=== PATIENT | female | born 1960 | race American Indian/Alaskan Native ===

== ENCOUNTER 2016-11-06 11:12 | Inpatient (IN) | payer OTHER, MEDICARE ==
--- NOTE | 2016-11-06 11:38 | EDM.PDOC ---
ED HISTORY OF PRESENT ILLNESS - General Chief Complaint: Respiratory Problem Stated Complaint: SOB Time Seen by Provider: 11/06/16 11:32 Source of Information: Reports: Patient History Limitations: Reports: No limitations - History of Present Illness INITIAL COMMENTS - FREE TEXT/NARRATIVE: 56-year-old female ancestry presents to the ED with productive cough greenish sputum for about 2 days. However she's been coughing and congested for about a week. She was seen earlier in the week and identified a viral upper respiratory tract infection. Patient has known COPD. She quit smoking in 2000. She is also immunocompromised because of rheumatoid arthritis and immunosuppressant agent. Rheumatoid arthritis was diagnosed in 2000 as well. She feels feverish and she had chills last night. Decreased appetite. No nausea vomiting or diarrhea. No hemoptysis. Sore throat. Has had pneumonia on several occasions in the past. She did have a flu shot. Has increased shortness of breath on minimal exertion. Blood pressure upon arrival is 82/60. She states currently she is 120s. No recent changes in her medications. Feels weak and dizzy when she stands. Symptom Onset Date: 10/30/16 Timing/Duration: Reports: Day(s):, Getting worse, Gradual onset Severity: moderate Location, General: Reports: chest Quality: Reports: Ache, Other (Soreness of breath on minimal exertion with productive cough.) Improves with: Reports: Rest Worsens with: Reports: Movement Context, General: Denies: Activity, Exercise, Lifting, Sick contact, Trauma, Other Associated Symptoms (General): Reports: chest pain, cough (With coughing. Does feel tight in her chest at times.), cough w sputum, fever/chills, loss of appetite, malaise, shortness of breath, weakness. 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 (see below) (None.) - Related Data Allergies/ADRs: Allergies Allergy/AdvReac Type Severity Reaction Status Date / Time No Known Allergies Allergy Verified 11/06/16 11:24 Home Meds: Home Meds Acetaminophen/HYDROcodone [Palmer 325-10 MG] 1 tab PO Q6H PRN 11/06/16 [History] Albuterol [Proventil HFA] 2 inh INH Q6H PRN 11/06/16 [History] Albuterol/Ipratropium [DuoNeb 3.0-0.5 MG/3 ML] 1 inh INH Q6H 11/06/16 [History] Calcium Carb/D3/Magnesium/Zinc [Usjdcmy-Ypa-Gqnr-Vit D] 1 tab PO BID 11/06/16 [ History] Enalapril Maleate 20 mg PO DAILY 11/06/16 [History] Enalapril [Vasotec] 10 mg PO DAILY 11/06/16 [History] Fluticasone/Salmeterol [Advair Diskus 100-50] 1 inh INH BID 11/06/16 [History] Hydroxychloroquine Sulfate [Plaquenil] 200 mg PO BID 11/06/16 [History] Montelukast [Singulair] 10 mg PO BEDTIME 11/06/16 [History] Tocilizumab [Actemra] 800 mg IV ASDIRECTED 11/06/16 [History] Tolterodine [Detrol] 2 mg PO DAILY 11/06/16 [History] guaiFENesin [Mucinex] 1 tab PO BID 11/06/16 [History] Past Medical History Cardiovascular History: Reports: Hypertension Respiratory History: Reports: Asthma, COPD, Pneumonia, recurrent, Other (see below) Other Respiratory History: pulmonary fibrosis Musculoskeletal History: Reports: Arthritis, RA (Diagnosed in 2000. It primarily affects both hands wrists elbows and knees. Toes are affected on both feet.) - Past Surgical History GI Surgical History: Reports: Cholecystectomy Social & Family History - Tobacco Use Smoking Status *Q: Former Smoker Used Tobacco, but Quit: Yes Month Tobacco Last Used: 2000 - Caffeine Use Caffeine Use: Reports: None - Recreational Drug Use Recreational Drug Use: No - Living Situation & Occupation Occupation: disabled ED ROS GENERAL - Review of Systems Review Of Systems: See Below Constitutional: Reports: fever, chills, malaise, weakness, fatigue, decreased appetite. Denies: weight loss HEENT: Reports: No symptoms Respiratory: Reports: Shortness of Breath, Wheezing, Cough, Sputum. Denies: Pleuritic Chest Pain, Hemoptysis (Primarily greenish the last few days.) Cardiovascular: Reports: Chest pain (With coughing), Dyspnea on exertion, Lightheadedness. Denies: Blood pressure problem, Claudication, Orthopnea, Palpitations Endocrine: Reports: fatigue GI/Abdominal: Reports: No symptoms Musculoskeletal: Reports: neck pain, shoulder pain, joint pain (To Kendrick hands wrists elbows and knees. Has rheumatoid arthritis.), joint swelling (MCP joints of both hands both wrists and both elbows.) Skin: Reports: no symptoms Neurological: Reports: No Symptoms Psychiatric: Reports: No symptoms ED EXAM, GENERAL - Physical Exam Exam: See Below Exam Limited By: No limitations General Appearance: alert, mild distress (Working fairly hard to breathe. She does feel quite warm to palpation. O2 sats are 98% on room air.) Eye Exam: bilateral eye: normal inspection Ears: normal TMs Throat/Mouth: Normal lips (Tongue is mildly dry and coated.), Normal oropharynx , Normal voice, Other Head: atraumatic, normocephalic Neck: normal inspection, supple, non-tender, limited range of motion (Couplet is noted on lateral rotation of the neck.). No: full range of motion, lymphadenopathy (L), lymphadenopathy (R) Respiratory/Chest: respiratory distress (Mild tachypnea at rest 20-22.), decreased breath sounds (Mildly decreased the lower 20% of lung crawford posteriorly.), rhonchi (Both upper lobes. Productive sounding cough. Scattered expiratory wheezes.) Cardiovascular: normal peripheral pulses, regular rate, rhythm, no edema, no gallop, no murmur, no rub (Resting tachycardia 116-120 per minute. Monitor reveals sinus rhythm), tachycardia Peripheral Pulses: 2+: posterior tibial (L), posterior tibial (R), dorsalis pedis (L), dorsalis pedis (R) GI/Abdominal: normal bowel sounds, soft, non tender, no organomegaly, no distention, no abnormal bruit, no mass Back Exam: normal inspection, full range of motion Extremities: other (She has marked evidence of rheumatoid arthritis affecting her hands with ulnar drift and severe swelling of all of the MCP joints bilaterally. Wrists and elbows are also affected with a synovitis and inflammation on the right than on the left this time. Similarly and TP joints of the great toes are affected by the disease. Both knees show increased warmth and tenderness with decreased range of motion.) Neurological: alert ( She reports she is scheduled to have her right knee replaced in about a month's time.), oriented, CN II-XII intact, normal cognition. No: normal gait, normal reflexes Psychiatric: normal affect, normal mood Skin Exam: Warm, Dry, Intact, Normal color, No rash ED CENTRAL LINE INSERTION - Central Line Insertion Central Line Indication: IV access, hemodynamic monitoring, medication administration Site: subclavian (R) Prep: CDC/MBT guidelines, sterile drapes, chlorhexidine Lumen: triple Gauge: 7Fr Local anesthesia - Lidocaine (Xylocaine): 1% plain Local anesthetic volume: 5cc Ultrasound guided: No Guidewire and dilator removed intact: Yes Micropuncture kit used: Yes Complications: No Secured with suture: Yes Post placement confirmation: CXR, all ports aspirated, all ports flushed CXR post-procedure: no pneumothorax, no hemothorax Dressing applied: by nurse, chlorhexidine disc used EKG INTERPRETATION EKG Date: 11/06/16 Time: 11:50 Rhythm: other (Sinus tachycardia) Rate (beats/min): 114 [place]: normal P-wave: present QRS: other (Decreased voltage in both limb and precordial leads. There are daily her Q waves in leads V3 and V4 suggestive of an old anteroseptal myocardial infarction. Similar linear Q waves in leads 3 and aVF consider old inferior wall myocardial infarction.) ST-T: normal QT: prolonged (Only prolonged for rate.) Course - Vital Signs Last Recorded V/S: Last Vital Signs Temp 36.6 C 11/06/16 11:17 Pulse 116 H 11/06/16 11:17 Resp 20 11/06/16 11:17 BP 84/50 L 11/06/16 11:17 Pulse Ox 95 11/06/16 12:17 - Orders/Labs/Meds Orders: Active Orders 24 hr Category Date Time Status EKG Documentation Completion [RC] STAT Care 11/06/16 11:38 Active Oxygen Therapy [RC] ASDIRECTED Care 11/06/16 11:39 Active RT Aerosol Therapy [RC] ASDIRECTED Care 11/06/16 11:44 Active CULTURE BLOOD [BC] Stat Lab 11/06/16 12:00 Received CULTURE BLOOD [BC] Stat Lab 11/06/16 12:15 Received URINALYSIS W/MICROSCOPIC [UA W/MICROSCOPIC] [URIN] Stat Lab 11/06/16 11:39 Uncollected Blood Culture x2 Reflex Set [OM.PC] Stat Oth 11/06/16 11:39 Ordered Medication Orders Norepinephrine Bitartrate 4 mg (/ Dextrose/Water) 250 mls @ 15 mls/hr IV TITRATE DANA; 4 MCG/MIN PRN Reason: Protocol Last Titration: 11/06/16 14:28 Dose: 5 mcg/min, 18.75 mls/hr Admin: 11/06/16 13:41 Dose: 4 mcg/min, 15 mls/hr Labs: Laboratory Tests 11/06/16 11/06/16 11/06/16 Range/Units 11:24 11:24 11:24 WBC 67.91 H (3.98-10.04) K/mm3 RBC 5.04 (3.98-5.22) M/mm3 Hgb 13.1 (11.2-15.7) gm/L Hct 40.9 (34.1-44.9) % MCV 81.2 (79.4-94.8) fl MCH 26.0 (25.6-32.2) pg MCHC 32.0 L (32.2-35.5) g/dl RDW Std Deviation 45.0 (36.4-46.3) fL Plt Count 305 (182-369) K/mm3 MPV 9.7 (9.4-12.3) fl Neutrophils % (Manual) 70 H (40-60) % Band Neutrophils % 25 H (0-10) % Lymphocytes % (Manual) 3 L (20-40) % Atypical Lymphs % 0 % Monocytes % (Manual) 1 L (2-10) % Eosinophils % (Manual) 1 (0.7-5.8) % Basophils % (Manual) 0 L (0.1-1.2) Differential Comment See note Toxic Granulation 1+ slight Platelet Estimate Adequate RBC Morph Comment Not Reportable ESR (0-20) mm/hr PT 10.7 (8.0-13.0) SECONDS INR 0.98 Sodium 137 (136-145) mEq/L Potassium 4.2 (3.5-5.1) mEq/L Chloride 102 (98-107) mEq/L Carbon Dioxide 25 (21-32) mEq/L Anion Gap 14.2 (5-15) BUN 25 H (7-18) mg/dL Creatinine 1.3 H (0.55-1.02) mg/dL Est Cr Clr Drug Dosing 48.16 mL/min Estimated GFR (MDRD) 42 (>60) mL/min BUN/Creatinine Ratio 19.2 H (14-18) Glucose 126 H (74-106) mg/dL Lactic Acid (0.4-2.0) mmol/L Calcium 8.8 (8.5-10.1) mg/dL Total Bilirubin 0.9 (0.2-1.0) mg/dL AST 16 (15-37) U/L ALT 18 (14-59) U/L Alkaline Phosphatase 96 (46-116) U/L CK-MB (CK-2) 0.5 (0-3.6) ng/ml Troponin I < 0.017 (0.00-0.056) ng/mL C-Reactive Protein 3.8 H* (<1.0) mg/dL B-Natriuretic Peptide (0-100) pg/mL Total Protein 7.2 (6.4-8.2) g/dl Albumin 3.4 (3.4-5.0) g/dl Globulin 3.8 gm/dL Albumin/Globulin Ratio 0.9 L (1-2) Mycoplasma pneumon IgM (NEGATIVE) 11/06/16 11/06/16 11/06/16 Range/Units 11:24 11:25 12:00 WBC (3.98-10.04) K/mm3 RBC (3.98-5.22) M/mm3 Hgb (11.2-15.7) gm/L Hct (34.1-44.9) % MCV (79.4-94.8) fl MCH (25.6-32.2) pg MCHC (32.2-35.5) g/dl RDW Std Deviation (36.4-46.3) fL Plt Count (182-369) K/mm3 MPV (9.4-12.3) fl Neutrophils % (Manual) (40-60) % Band Neutrophils % (0-10) % Lymphocytes % (Manual) (20-40) % Atypical Lymphs % % Monocytes % (Manual) (2-10) % Eosinophils % (Manual) (0.7-5.8) % Basophils % (Manual) (0.1-1.2) Differential Comment Toxic Granulation Platelet Estimate RBC Morph Comment ESR 22 H (0-20) mm/hr PT (8.0-13.0) SECONDS INR Sodium (136-145) mEq/L Potassium (3.5-5.1) mEq/L Chloride (98-107) mEq/L Carbon Dioxide (21-32) mEq/L Anion Gap (5-15) BUN (7-18) mg/dL Creatinine (0.55-1.02) mg/dL Est Cr Clr Drug Dosing mL/min Estimated GFR (MDRD) (>60) mL/min BUN/Creatinine Ratio (14-18) Glucose (74-106) mg/dL Lactic Acid 2.4 H (0.4-2.0) mmol/L Calcium (8.5-10.1) mg/dL Total Bilirubin (0.2-1.0) mg/dL AST (15-37) U/L ALT (14-59) U/L Alkaline Phosphatase (46-116) U/L CK-MB (CK-2) (0-3.6) ng/ml Troponin I (0.00-0.056) ng/mL C-Reactive Protein (<1.0) mg/dL B-Natriuretic Peptide 67 (0-100) pg/mL Total Protein (6.4-8.2) g/dl Albumin (3.4-5.0) g/dl Globulin gm/dL Albumin/Globulin Ratio (1-2) Mycoplasma pneumon IgM (NEGATIVE) 11/06/16 Range/Units 12:47 WBC (3.98-10.04) K/mm3 RBC (3.98-5.22) M/mm3 Hgb (11.2-15.7) gm/L Hct (34.1-44.9) % MCV (79.4-94.8) fl MCH (25.6-32.2) pg MCHC (32.2-35.5) g/dl RDW Std Deviation (36.4-46.3) fL Plt Count (182-369) K/mm3 MPV (9.4-12.3) fl Neutrophils % (Manual) (40-60) % Band Neutrophils % (0-10) % Lymphocytes % (Manual) (20-40) % Atypical Lymphs % % Monocytes % (Manual) (2-10) % Eosinophils % (Manual) (0.7-5.8) % Basophils % (Manual) (0.1-1.2) Differential Comment Toxic Granulation Platelet Estimate RBC Morph Comment ESR (0-20) mm/hr PT (8.0-13.0) SECONDS INR Sodium (136-145) mEq/L Potassium (3.5-5.1) mEq/L Chloride (98-107) mEq/L Carbon Dioxide (21-32) mEq/L Anion Gap (5-15) BUN (7-18) mg/dL Creatinine (0.55-1.02) mg/dL Est Cr Clr Drug Dosing mL/min Estimated GFR (MDRD) (>60) mL/min BUN/Creatinine Ratio (14-18) Glucose (74-106) mg/dL Lactic Acid (0.4-2.0) mmol/L Calcium (8.5-10.1) mg/dL Total Bilirubin (0.2-1.0) mg/dL AST (15-37) U/L ALT (14-59) U/L Alkaline Phosphatase (46-116) U/L CK-MB (CK-2) (0-3.6) ng/ml Troponin I (0.00-0.056) ng/mL C-Reactive Protein (<1.0) mg/dL B-Natriuretic Peptide (0-100) pg/mL Total Protein (6.4-8.2) g/dl Albumin (3.4-5.0) g/dl Globulin gm/dL Albumin/Globulin Ratio (1-2) Mycoplasma pneumon IgM Negative (NEGATIVE) Meds: Medications Generic Name Dose Route Start Last Admin Trade Name Freq PRN Reason Stop Dose Admin Norepinephrine Bitartrate 4 mg 250 mls @ 15 mls/hr 11/06/16 13:30 11/06/16 14 :28 / Dextrose/Water IV 5 mcg/min TITRATE DANA 18.75 mls/hr Protocol Titration 4 MCG/MIN Discontinued Medications Generic Name Dose Route Start Last Admin Trade Name Freq PRN Reason Stop Dose Admin Acetaminophen 975 mg 11/06/16 11:40 11/06/16 12:05 Tylenol PO 11/06/16 11:41 975 mg NOW ONE Administration Albuterol/Ipratropium 3 ml 11/06/16 11:44 11/06/16 12:10 Duoneb 3.0-0.5 Mg/3 Ml NEB 11/06/16 11:45 3 ml ONETIME ONE Administration Sodium Chloride 1,000 mls @ 999 mls/hr 11/06/16 11:39 11/06/16 12:05 Normal Saline IV 11/06/16 12:39 999 mls/hr ONETIME ONE Administration Levofloxacin/Dextrose 750 mg/ 150 mls @ 100 mls/hr 11/06/16 11:51 11/06/16 12 :05 Premix IV 11/06/16 13:20 100 mls/hr ONETIME ONE Administration Linezolid 600 mg/ Premix 300 mls @ 300 mls/hr 11/06/16 12:47 11/06/16 13:07 IV 11/06/16 13:46 300 mls/hr ONETIME ONE Administration Midazolam HCl Confirm 11/06/16 14:21 Versed 1 Mg/Ml Administered 11/06/16 14:22 Dose 2 mg .ROUTE .STK-MED ONE Midazolam HCl 2 mg 11/06/16 14:27 11/06/16 14:21 Versed 1 Mg/Ml IVPUSH 11/06/16 14:28 2 mg ONETIME ONE Administration - Radiology Interpretation Free Text/Narrative:: 56-year-old female [place] presents to the ED with a paroxysmal productive cough for last 2 days but coughing sputum going on for over a week. The sputum has turned more green and become more productive the last 2 days. Associated development of fever and chills over the last 2 days. Decreased appetite. She has had pneumonia several times in the past. She has COPD by history. She does not use home oxygen. She is immunosuppressed due to her rheumatoid arthritis medications. Blood pressure on arrival is low at 80-84 systolic. She states she normally has a systolic running in the 120s. She is tachycardic and tachypnea. Therefore for sepsis protocol was activated. She'll be given a liter of normal saline at open. Cultures x2 be collected with routine labs including BNP, CRP, and sedimentation rate. She'll be starting antibiotics is soon as blood cultures x2 been collected. Levaquin 750 mg IV will be started. - Re-Assessments/Exams Free Text/Narrative Re-Assessment/Exam: 11/06/16 12:16 blood pressure remains low at 78/58. A vascular cyst check for accuracy. If it is a slow a second IV will be started. Heart rate is 98. O2 sats are 92%. Chest x-ray reveals pneumonia right lower lobe adjacent to the heart. Has mild cardiomegaly. Has mild hyperinflated lung crawford bilaterally. 11/06/16 12:31 BP remains low at 85/over 50. Second IV to be started IV normal saline at open. 11/06/16 12:47 second IV has been established. I am going to add Zyvox 600 mg IV to her treatment plan. Her white count is severely elevated 11/06/16 12:50 at 67.91 with 70% it fills and 25% bands. I checked with the lab and they are strongly feeling this is a granulocytosis there is no evidence of a leukemia. Hemoglobin is 13.1 hematocrit 40.9. Platelets 305,000. Sedimentation rate is 22. Coags are normal. Sodium is 137 potassium 4.2. Portable 2 bicarbonate 25. Anion gap is 14.2. BUN is 25 creatinine is 1.3. EGFR is 42. Glucose 126. Lactic acid is elevated at 2.4. CRP is 3.8. Discussed the case with pensionholder information clerk hospitalist Dr. Bradley. Patient will be admitted to the intensive care unit. I'm going to infuse 2 L of crystalloid if I don't see a very significant improvment in her blood pressure such as 105 or greater she may well need vasopressor support. Will start second antibiotic Zyvox as above. 11/06/16 13:25 blood pressure remains low in fact it has dropped to 78/34 . Therefore going to go ahead and start vasopressor Levophed at 4 mcg per minute. A third IV has been established in the left hand. 11/06/16 14:55 central line placed right subclavian vein for IV access. No problems were encountered during the procedure .The patient tolerated the procedure very well. She did received 2 mg of Versed intravenously for mild sedation. Catheter placed to 25 cm at the skin. Portable chest x-ray to be done to assess placement. 11/06/16 15:15 portable chest x-rays been completed. There is no pneumothorax. The catheter however probably does enter into the right atrium. Cannot CVN to define if it enters the right ventricle. Departure - Departure Time of Disposition: 15:05 Disposition: Admitted As Inpatient 65 Condition: critical Clinical Impression: Septic shock, Immunocompromised status associated with infection Pneumonia Qualifiers: Pneumonia type: due to unspecified organism Laterality: right Lung location: lower lobe of lung Qualified Code(s): J18.1 - Lobar pneumonia, unspecified organism Rheumatoid arthritis Qualifiers: Rheumatoid arthritis location: multiple sites Rheumatoid factor presence: with rheumatoid factor Qualified Code(s): M05.79 - Rheumatoid arthritis with rheumatoid factor of multiple sites without organ or systems involvement - My Orders Last 24 Hours: My Active Orders 11/06/16 11:38 EKG Documentation Completion [RC] STAT 11/06/16 11:39 Oxygen Therapy [RC] ASDIRECTED URINALYSIS W/MICROSCOPIC [UA W/MICROSCOPIC] [URIN] Stat Blood Culture x2 Reflex Set [OM.PC] Stat 11/06/16 11:44 RT Aerosol Therapy [RC] ASDIRECTED 11/06/16 12:00 CULTURE BLOOD [BC] Stat 11/06/16 12:15 CULTURE BLOOD [BC] Stat - Assessment/Plan Last 24 Hours: My Active Orders 11/06/16 11:38 EKG Documentation Completion [RC] STAT 11/06/16 11:39 Oxygen Therapy [RC] ASDIRECTED URINALYSIS W/MICROSCOPIC [UA W/MICROSCOPIC] [URIN] Stat Blood Culture x2 Reflex Set [OM.PC] Stat 11/06/16 11:44 RT Aerosol Therapy [RC] ASDIRECTED 11/06/16 12:00 CULTURE BLOOD [BC] Stat 11/06/16 12:15 CULTURE BLOOD [BC] Stat
[2016-11-06] MEDS ORDERED: Sodium Chloride 0.9% 1,000 ML IV ONE (11:39)
[2016-11-06] MEDS ORDERED: Acetaminophen 325 MG Tab PO ONE (11:40)
[2016-11-06] MEDS ORDERED: Albuterol/Ipratropium 3.0-0.5 MG/3 ML Neb Soln NEB ONE (11:44)
[2016-11-06] MEDS ORDERED: Levofloxacin/Dextrose 5%-Water 750 MG in Premix Bag 1 BAG IV ONE (11:51)
[2016-11-06] MEDS ORDERED: Linezolid 600 MG in Premix Bag 1 BAG IV ONE (12:47)
[2016-11-06] MEDS ORDERED: Norepinephrine 4 MG in Dextrose 5% in Water 246 ML IV SCH ×2 (13:30)
--- NOTE | 2016-11-06 13:46 | CR ---
Chest: Portable view of the chest was obtained. Comparison: No previous study. Heart size appears within normal limits for portable technique. Mild tortuosity of the thoracic aorta is seen. Lung markings are mildly increased. This may be chronic but difficult to exclude mild bronchitis. Lungs otherwise are clear. Mild scoliosis is noted within the spine with mild scattered degenerative endplate spurring. Impression: 1. Mild increased lung markings possibly chronic but difficult to exclude mild bronchitis. 2. Other incidental findings. Diagnostic code #3
[2016-11-06] MEDS ORDERED: Midazolam 1 MG/ML 2 ML SDV ONE (14:21)
[2016-11-06] MEDS ORDERED: Midazolam 1 MG/ML 2 ML SDV IVPUSH ONE (14:27)
--- NOTE | 2016-11-06 14:31 | PCM.HP ---
H&P History of Present Illness - General Date of Service: 11/06/16 Admit Problem/Dx: Admission Diagnosis/Problem Admission Diagnosis/Problem Pneumonia Source of Information: Patient, Provider History Limitations: Reports: No limitations - History of Present Illness Initial Comments - Free Text/Narative: 56 year old female presenting with productive cough with green sputum, fever/ chills. The symptoms are becoming worse, she admits to malaise, generalized weakness. Has had progressive shortness of breath; a former tobacco smoker who quit in 2000. She is immune compromised on immune suppressants for rheumatoid arthritis. 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 On presentation, she was hypotenive and tachycardia; she will be admitted to the ICU for treatment of sepsis/pneumonia. Onset of Symptoms: Reports: gradual Symptom Onset Date: 10/30/16 (approximately 1 wk [employer]NATIONAL ACCOUNT EXEC[employer]IVE) Duration of Symptoms: Reports: Week(s):, Getting worse Location: Reports: chest Quality: Reports: Same as previous episode Severity: moderate Improves with: Reports: Medication Worsens with: Reports: None Context: Reports: sick contact (viral) Associated Symptoms: Reports: cough w sputum, fever/chills, loss of appetite, malaise, shortness of breath Right Shoulder Pain Score (Numeric/FACES): 8 R Knee Pain Score (Numeric/FACES): 8 - Related Data Allergies/Adverse Reactions: Allergies Allergy/AdvReac Type Severity Reaction Status Date / Time No Known Allergies Allergy Verified 11/06/16 11:24 Home Medications: Home Meds Acetaminophen/HYDROcodone [[place] 325-10 MG] 1 tab PO Q6H PRN 11/06/16 [History] Albuterol [Proventil HFA] 2 inh INH Q6H PRN 11/06/16 [History] Albuterol/Ipratropium [DuoNeb 3.0-0.5 MG/3 ML] 1 inh INH Q6H 11/06/16 [History] Calcium Carb/D3/Magnesium/Zinc [Sobploq-Gvy-Dqcc-Vit D] 1 tab PO BID 11/06/16 [ History] Enalapril Maleate 20 mg PO DAILY 11/06/16 [History] Enalapril [Vasotec] 10 mg PO DAILY 11/06/16 [History] Fluticasone/Salmeterol [Advair Diskus 100-50] 1 inh INH BID 11/06/16 [History] Hydroxychloroquine Sulfate [Plaquenil] 200 mg PO BID 11/06/16 [History] Montelukast [Singulair] 10 mg PO BEDTIME 11/06/16 [History] Tocilizumab [Actemra] 800 mg IV ASDIRECTED 11/06/16 [History] Tolterodine [Detrol] 2 mg PO DAILY 11/06/16 [History] guaiFENesin [Mucinex] 1 tab PO BID 11/06/16 [History] Past Medical History Cardiovascular History: Reports: Hypertension Respiratory History: Reports: Asthma, COPD, Pneumonia, recurrent, Other (see below) Other Respiratory History: pulmonary fibrosis Musculoskeletal History: Reports: Arthritis, RA (Diagnosed in 2000. It primarily affects both hands wrists elbows and knees. Toes are affected on both feet.) - Past Surgical History GI Surgical History: Reports: Cholecystectomy Social & Family History - Tobacco Use Smoking Status *Q: Former Smoker Used Tobacco, but Quit: Yes Month Tobacco Last Used: 2000 - Caffeine Use Caffeine Use: Reports: None - Recreational Drug Use Recreational Drug Use: No - Living Situation & Occupation Occupation: disabled H&P Review of Systems - Review of Systems: Review Of Systems: See Below General: Reports: fever, chills, malaise, weakness, fatigue HEENT: Reports: no symptoms Pulmonary: Reports: Shortness of Breath Cardiovascular: Reports: palpitations, lightheadedness Gastrointestinal: Reports: No symptoms Genitourinary: Reports: no symptoms Musculoskeletal: Reports: neck pain, shoulder pain, hand pain. Denies: no symptoms Skin: Reports: no symptoms Psychiatric: Reports: no symptoms Neurological: Reports: No Symptoms Hematologic/Lymphatic: Reports: no symptoms Immunologic: Reports: no symptoms Exam - Exam Exam: See Below - Vital Signs Vital Signs: Last Vital Signs Temp 36.6 C 11/06/16 11:17 Pulse 116 H 11/06/16 11:17 Resp 20 11/06/16 11:17 BP 84/50 L 11/06/16 11:17 Pulse Ox 95 11/06/16 12:17 Weight: 102.965 kg - Exam Quality Assessment: DVT prophylaxis General: alert, oriented, cooperative HEENT: EOMI, Hearing intact, Mucosa moist & pink, Nares patent, Normal nasal septum, Pupils equal, Pupils reactive Neck: supple, trachea midline Lungs: Normal respiratory effort, Wheezing Cardiovascular: regular rate, tachycardia Abdomen: normal bowel sounds, soft (Female) Exam: Deferred Rectal (Female) Exam: Deferred Back Exam: normal inspection Extremities: normal pulses Skin: warm Neurological: cranial nerves intact, normal speech Neuro Extensive - Mental Status: alert, oriented x3, normal mood/affect, normal cognition, memory intact Neuro Extensive - Motor, Sensory, Reflexes: CN II-XII intact Psychiatric: alert, normal affect, normal mood - Patient Data Result Diagrams: 11/07/16 06:06 11/07/16 06:06 *Q Meaningful Use (ADM) - VTE *Q VTE Criteria *Q: - Stroke *Q Stroke Criteria *Q: - AMI *Q AMI Criteria *Q: - Problem List (1) Immunocompromised status associated with infection SNOMED Code(s): 657448418 ICD Code: D84.9 - IMMUNODEFICIENCY, UNSPECIFIED; B99.9 - UNSPECIFIED INFECTIOUS DISEASE Status: Acute Current Visit: Yes (2) Pneumonia SNOMED Code(s): 271973410 ICD Code: J18.9 - PNEUMONIA, UNSPECIFIED ORGANISM Status: Acute Current Visit: Yes Qualifiers: Pneumonia type: due to unspecified organism Laterality: right Lung location: lower lobe of lung Qualified Code(s): J18.1 - Lobar pneumonia, unspecified organism (3) Rheumatoid arthritis SNOMED Code(s): 73602696 ICD Code: M06.9 - RHEUMATOID ARTHRITIS, UNSPECIFIED Status: Acute Current Visit: Yes Qualifiers: Rheumatoid arthritis location: multiple sites Rheumatoid factor presence: with rheumatoid factor Qualified Code(s): M05.79 - Rheumatoid arthritis with rheumatoid factor of multiple sites without organ or systems involvement (4) Septic shock SNOMED Code(s): 23370831 ICD Code: A41.9 - SEPSIS, UNSPECIFIED ORGANISM; R65.21 - SEVERE SEPSIS WITH SEPTIC SHOCK Status: Acute Current Visit: Yes Problem List Initiated/Reviewed/Updated: Yes Orders Last 24hrs: Active Orders 24 hr Category Date Time Status LACTIC ACID [CHEM] Routine Lab 11/06/16 17:00 Ordered Norepinephrine [Levophed] 4 mg Med 11/06/16 13:30 Active Dextrose 5% in Water 246 ml IV TITRATE Medication Orders Norepinephrine Bitartrate 4 mg (/ Dextrose/Water) 250 mls @ 15 mls/hr IV TITRATE DANA; 4 MCG/MIN PRN Reason: Protocol Last Titration: 11/06/16 14:28 Dose: 5 mcg/min, 18.75 mls/hr Admin: 11/06/16 13:41 Dose: 4 mcg/min, 15 mls/hr Assessment/Plan Comment:: Impression: Query RLL PNA with RA on immune suppressants Former Tobacco, remote Pulmonary Fibrosis by history COPD Septic with profound leukocytosis, 67.91 CKD, stage III Chronic HTN Rheumatoid arthritis Plan: IVF, 0.9 NS Levoquin/Cefepime/Vanco Solumedrol Nebs Clear Liquids Home meds Resp panel/ PNA screen Droplet Precautions DVT/GI prophylaxis
[2016-11-06] MEDS ORDERED: ACTEMRA SCH (15:30)
--- NOTE | 2016-11-06 15:30 | CR ---
Chest: Portable view of the chest was obtained. Comparison: Previous chest x-ray 11/06/16 (11:49 AM). Right sided subclavian line is seen. Tip is difficult to see but lies at least at the right atrial/superior vena cava junction and possibly within the right atria. Lungs shows minimal atelectasis within both lateral costophrenic angles. Lungs otherwise are clear. Heart size at the upper limits of normal. Tortuous thoracic aorta is seen. Impression: 1. Right subclavian line. No findings of pneumothorax. Tip of subclavian line difficult to see but lies at least within the right atrial superior vena cava junction and possibly within the right atria. 2. Other incidental findings. Diagnostic code #3
[2016-11-06] MEDS ORDERED: Ondansetron 4 MG/2 ML SDV IVPUSH PRN (15:54)
[2016-11-06] MEDS: Sodium Chloride 0.9% 1,000 ML IV SCH ×3 (15:59→18:04)
[2016-11-06] MEDS ORDERED: methylPREDNISolone Sodium Succinate 40 MG/1 ML SDV IVPUSH SCH ×2 (16:00)
[2016-11-06] MEDS: Albuterol/Ipratropium 3.0-0.5 MG/3 ML Neb Soln NEB SCH ×2 (16:18→21:14)
[2016-11-06] MEDS: Acetaminophen/HYDROcodone 325-10 MG Tab PO PRN ×2 (16:24→22:33)
[2016-11-06] MEDS ORDERED: Albuterol/Ipratropium 3.0-0.5 MG/3 ML Neb Soln NEB SCH (17:00)
[2016-11-06] MEDS: Cefepime 2 GM in Premix Bag 1 BAG IV SCH (18:36)
[2016-11-06] MEDS: guaiFENesin 600 MG Tab.ER PO SCH (20:33)
[2016-11-06] MEDS: Hydroxychloroquine 200 MG Tab PO SCH (20:33)
[2016-11-06] MEDS: Montelukast 10 MG Tab PO SCH (20:33)
[2016-11-06] MEDS: Fluticasone/Salmeterol 100-50 MCG Inhalation Powder 14/Diskus INH SCH (21:13)
[2016-11-06] MEDS ORDERED: Magnesium Sulfate/Water 2 GM in Premix Bag 1 BAG IV ONE (23:17)
[2016-11-07] MEDS: Cefepime 2 GM in Premix Bag 1 BAG IV SCH ×3 (01:37→17:59)
[2016-11-07] MEDS: Albuterol/Ipratropium 3.0-0.5 MG/3 ML Neb Soln NEB SCH ×4 (06:15→20:53)
[2016-11-07] MEDS: Vancomycin 1 GM, Vancomycin 250 MG in Sodium Chloride 0.9% 250 ML IV SCH ×2 (08:52→16:33)
[2016-11-07] MEDS: Levofloxacin/Dextrose 5%-Water 750 MG in Premix Bag 1 BAG IV SCH (08:58)
[2016-11-07] MEDS: Tolterodine 2 MG Tab PO SCH (09:05)
[2016-11-07] MEDS: Hydroxychloroquine 200 MG Tab PO SCH ×2 (09:05→21:14)
[2016-11-07] MEDS: guaiFENesin 600 MG Tab.ER PO SCH ×2 (09:05→21:15)
[2016-11-07] MEDS: methylPREDNISolone Sodium Succinate 40 MG/1 ML SDV IVPUSH SCH ×2 (09:06→21:14)
[2016-11-07] MEDS: Enoxaparin 40 MG/0.4 ML Syringe SUBCUT SCH (09:14)
[2016-11-07] MEDS: Fluticasone/Salmeterol 100-50 MCG Inhalation Powder 14/Diskus INH SCH ×2 (09:30→20:53)
--- NOTE | 2016-11-07 09:42 | PCM.PN ---
- General Info Date of Service: 11/07/16 Functional Status: Reports: pain controlled, tolerating diet, ambulating, urinating - Review of Systems General: Reports: No Symptoms HEENT: Reports: no symptoms Pulmonary: Reports: no symptoms Cardiovascular: Reports: No Symptoms Gastrointestinal: Reports: No symptoms Genitourinary: Reports: no symptoms Musculoskeletal: Reports: no symptoms Skin: Reports: no symptoms Neurological: Reports: No Symptoms Psychiatric: Reports: no symptoms - Patient Data Vitals - most recent: Last Vital Signs Temp 36.1 C 11/07/16 08:00 Pulse 104 H 11/06/16 16:00 Resp 16 11/07/16 08:00 BP 92/61 11/07/16 08:00 Pulse Ox 98 11/07/16 08:00 Weight - most recent: 103.6 kg I&O - last 24 hours: Intake & Output 11/06/16 11/07/16 11/07/16 22:59 06:59 14:59 Intake Total 300 400 Output Total 800 600 Balance -500 -200 Lab Results last 24 hrs: Laboratory Results - last 24 hr 11/06/16 11/06/16 11/06/16 Range/Units 16:46 17:35 18:30 WBC (3.98-10.04) K/mm3 RBC (3.98-5.22) M/mm3 Hgb (11.2-15.7) gm/L Hct (34.1-44.9) % MCV (79.4-94.8) fl MCH (25.6-32.2) pg MCHC (32.2-35.5) g/dl RDW Std Deviation (36.4-46.3) fL Plt Count (182-369) K/mm3 MPV (9.4-12.3) fl Neut % (Auto) (34.0-71.1) % Lymph % (Auto) (19.3-51.7) % [place] % (Auto) (4.7-12.5) % Eos % (Auto) (0.7-5.8) Baso % (Auto) (0.1-1.2) % Neut # (Auto) (1.56-6.13) K/mm3 Lymph # (Auto) (1.18-3.74) K/mm3 [place] # (Auto) (0.24-0.36) K/mm3 Eos # (Auto) (0.04-0.36) K/mm3 Baso # (Auto) (0.01-0.08) K/mm3 Manual Slide Review Sodium (136-145) mEq/L Potassium (3.5-5.1) mEq/L Chloride (98-107) mEq/L Carbon Dioxide (21-32) mEq/L Anion Gap (5-15) BUN (7-18) mg/dL Creatinine (0.55-1.02) mg/dL Est Cr Clr Drug Dosing mL/min Estimated GFR (MDRD) (>60) mL/min BUN/Creatinine Ratio (14-18) Glucose (74-106) mg/dL Lactic Acid 1.6 (0.4-2.0) mmol/L Calcium (8.5-10.1) mg/dL Magnesium (1.8-2.4) mg/dl C-Reactive Protein (<1.0) mg/dL B-Natriuretic Peptide (0-100) pg/mL Urine Color Light yellow (Yellow) Urine Appearance Clear (Clear) Urine pH 6.0 (5.0-8.0) Ur Specific [place] 1.010 (1.005-1.030) Urine Protein Negative (Negative) Urine Glucose (UA) Negative (Negative) Urine Ketones Negative (Negative) Urine Occult Blood Negative (Negative) Urine Nitrite Negative (Negative) Urine Bilirubin Negative (Negative) Urine Urobilinogen 0.2 (0.2-1.0) Ur Leukocyte Esterase Negative (Negative) Urine RBC 0-5 (0-5) /hpf Urine WBC 0-5 (0-5) /hpf Ur Epithelial Cells 5-10 H (0-5) /hpf Urine Bacteria Moderate H (FEW) /hpf Urine Mucus Few (FEW) /hpf MRSA (PCR) Positive H 11/06/16 11/06/16 11/06/16 Range/Units 23:27 23:27 23:27 WBC 61.29 H (3.98-10.04) K/mm3 RBC 4.26 (3.98-5.22) M/mm3 Hgb 11.3 (11.2-15.7) gm/L Hct 34.4 (34.1-44.9) % MCV 80.8 (79.4-94.8) fl MCH 26.5 (25.6-32.2) pg MCHC 32.8 (32.2-35.5) g/dl RDW Std Deviation 43.8 (36.4-46.3) fL Plt Count 205 (182-369) K/mm3 MPV 9.7 (9.4-12.3) fl Neut % (Auto) 95.6 H (34.0-71.1) % Lymph % (Auto) 0.8 L (19.3-51.7) % [place] % (Auto) 0.3 L (4.7-12.5) % Eos % (Auto) 0 L (0.7-5.8) Baso % (Auto) 0.1 (0.1-1.2) % Neut # (Auto) 58.58 H (1.56-6.13) K/mm3 Lymph # (Auto) 0.52 L (1.18-3.74) K/mm3 [place] # (Auto) 0.18 L (0.24-0.36) K/mm3 Eos # (Auto) 0.02 L (0.04-0.36) K/mm3 Baso # (Auto) 0.05 (0.01-0.08) K/mm3 Manual Slide Review Abnormal smear Sodium 140 (136-145) mEq/L Potassium 4.3 (3.5-5.1) mEq/L Chloride 110 H (98-107) mEq/L Carbon Dioxide 20 L (21-32) mEq/L Anion Gap 14.3 (5-15) BUN 15 (7-18) mg/dL Creatinine 0.9 (0.55-1.02) mg/dL Est Cr Clr Drug Dosing 69.57 mL/min Estimated GFR (MDRD) > 60 (>60) mL/min BUN/Creatinine Ratio 16.7 (14-18) Glucose 172 H (74-106) mg/dL Lactic Acid (0.4-2.0) mmol/L Calcium 7.6 L (8.5-10.1) mg/dL Magnesium 1.6 L (1.8-2.4) mg/dl C-Reactive Protein (<1.0) mg/dL B-Natriuretic Peptide 214 H (0-100) pg/mL Urine Color (Yellow) Urine Appearance (Clear) Urine pH (5.0-8.0) Ur Specific [place] (1.005-1.030) Urine Protein (Negative) Urine Glucose (UA) (Negative) Urine Ketones (Negative) Urine Occult Blood (Negative) Urine Nitrite (Negative) Urine Bilirubin (Negative) Urine Urobilinogen (0.2-1.0) Ur Leukocyte Esterase (Negative) Urine RBC (0-5) /hpf Urine WBC (0-5) /hpf Ur Epithelial Cells (0-5) /hpf Urine Bacteria (FEW) /hpf Urine Mucus (FEW) /hpf MRSA (PCR) 11/06/16 11/07/16 11/07/16 Range/Units 23:27 06:06 06:06 WBC (3.98-10.04) K/mm3 RBC (3.98-5.22) M/mm3 Hgb (11.2-15.7) gm/L Hct (34.1-44.9) % MCV (79.4-94.8) fl MCH (25.6-32.2) pg MCHC (32.2-35.5) g/dl RDW Std Deviation (36.4-46.3) fL Plt Count (182-369) K/mm3 MPV (9.4-12.3) fl Neut % (Auto) (34.0-71.1) % Lymph % (Auto) (19.3-51.7) % [place] % (Auto) (4.7-12.5) % Eos % (Auto) (0.7-5.8) Baso % (Auto) (0.1-1.2) % Neut # (Auto) (1.56-6.13) K/mm3 Lymph # (Auto) (1.18-3.74) K/mm3 [place] # (Auto) (0.24-0.36) K/mm3 Eos # (Auto) (0.04-0.36) K/mm3 Baso # (Auto) (0.01-0.08) K/mm3 Manual Slide Review Sodium 143 (136-145) mEq/L Potassium 4.4 (3.5-5.1) mEq/L Chloride 113 H (98-107) mEq/L Carbon Dioxide 21 (21-32) mEq/L Anion Gap 13.4 (5-15) BUN 13 (7-18) mg/dL Creatinine 0.6 (0.55-1.02) mg/dL Est Cr Clr Drug Dosing 104.35 mL/min Estimated GFR (MDRD) > 60 (>60) mL/min BUN/Creatinine Ratio 21.7 H (14-18) Glucose 122 H (74-106) mg/dL Lactic Acid 0.9 0.8 (0.4-2.0) mmol/L Calcium 8.0 L (8.5-10.1) mg/dL Magnesium 2.3 (1.8-2.4) mg/dl C-Reactive Protein 11.6 H* (<1.0) mg/dL B-Natriuretic Peptide (0-100) pg/mL Urine Color (Yellow) Urine Appearance (Clear) Urine pH (5.0-8.0) Ur Specific [place] (1.005-1.030) Urine Protein (Negative) Urine Glucose (UA) (Negative) Urine Ketones (Negative) Urine Occult Blood (Negative) Urine Nitrite (Negative) Urine Bilirubin (Negative) Urine Urobilinogen (0.2-1.0) Ur Leukocyte Esterase (Negative) Urine RBC (0-5) /hpf Urine WBC (0-5) /hpf Ur Epithelial Cells (0-5) /hpf Urine Bacteria (FEW) /hpf Urine Mucus (FEW) /hpf MRSA (PCR) 11/07/16 Range/Units 06:06 WBC 60.09 H (3.98-10.04) K/mm3 RBC 4.07 (3.98-5.22) M/mm3 Hgb 11.0 L (11.2-15.7) gm/L Hct 33.2 L (34.1-44.9) % MCV 81.6 (79.4-94.8) fl MCH 27.0 (25.6-32.2) pg MCHC 33.1 (32.2-35.5) g/dl RDW Std Deviation 44.0 (36.4-46.3) fL Plt Count 202 (182-369) K/mm3 MPV 9.6 (9.4-12.3) fl Neut % (Auto) 95.8 H (34.0-71.1) % Lymph % (Auto) 1.8 L (19.3-51.7) % [place] % (Auto) 0.9 L (4.7-12.5) % Eos % (Auto) 0 L (0.7-5.8) Baso % (Auto) 0.1 (0.1-1.2) % Neut # (Auto) 57.59 H (1.56-6.13) K/mm3 Lymph # (Auto) 1.06 L (1.18-3.74) K/mm3 [place] # (Auto) 0.52 H (0.24-0.36) K/mm3 Eos # (Auto) 0.00 L (0.04-0.36) K/mm3 Baso # (Auto) 0.06 (0.01-0.08) K/mm3 Manual Slide Review Abnormal smear Sodium (136-145) mEq/L Potassium (3.5-5.1) mEq/L Chloride (98-107) mEq/L Carbon Dioxide (21-32) mEq/L Anion Gap (5-15) BUN (7-18) mg/dL Creatinine (0.55-1.02) mg/dL Est Cr Clr Drug Dosing mL/min Estimated GFR (MDRD) (>60) mL/min BUN/Creatinine Ratio (14-18) Glucose (74-106) mg/dL Lactic Acid (0.4-2.0) mmol/L Calcium (8.5-10.1) mg/dL Magnesium (1.8-2.4) mg/dl C-Reactive Protein (<1.0) mg/dL B-Natriuretic Peptide (0-100) pg/mL Urine Color (Yellow) Urine Appearance (Clear) Urine pH (5.0-8.0) Ur Specific [place] (1.005-1.030) Urine Protein (Negative) Urine Glucose (UA) (Negative) Urine Ketones (Negative) Urine Occult Blood (Negative) Urine Nitrite (Negative) Urine Bilirubin (Negative) Urine Urobilinogen (0.2-1.0) Ur Leukocyte Esterase (Negative) Urine RBC (0-5) /hpf Urine WBC (0-5) /hpf Ur Epithelial Cells (0-5) /hpf Urine Bacteria (FEW) /hpf Urine Mucus (FEW) /hpf MRSA (PCR) [place] Results last 24 hrs: Microbiology 11/06/16 17:28 Gram Stain - Final Sputum - Expectorated Med Orders - Current: Current Medications Acetaminophen (Tylenol) 650 mg PO Q6H PRN PRN Reason: Fever Hydrocodone Bitart/Acetaminophen ([place] 325-10 Mg) 1 tab PO Q6H PRN PRN Reason: Pain Last Admin: 11/06/16 22:33 Dose: 1 tab Albuterol/Ipratropium (Duoneb 3.0-0.5 Mg/3 Ml) 3 ml NEB QIDRT [facility] Last Admin: 11/07/16 09:30 Dose: 3 ml Enoxaparin Sodium (Lovenox) 40 mg SUBCUT DAILY [facility] Last Admin: 11/07/16 09:14 Dose: 40 mg Guaifenesin (Mucinex) 600 mg PO BID [facility] Last Admin: 11/07/16 09:05 Dose: 600 mg Hydroxychloroquine Sulfate (Plaquenil) 200 mg PO BID [facility] Last Admin: 11/07/16 09:05 Dose: 200 mg Norepinephrine Bitartrate 4 mg (/ Dextrose/Water) 250 mls @ 15 mls/hr IV TITRATE DANA; 4 MCG/MIN PRN Reason: Protocol Last Titration: 11/07/16 02:06 Dose: 0 mcg/min, 0 mls/hr Cefepime HCl 2 gm/ Premix 50 mls @ 100 mls/hr IV Q8H [facility] Last Admin: 11/07/16 01:37 Dose: 100 mls/hr Levofloxacin/Dextrose 750 mg/ (Premix) 150 mls @ 100 mls/hr IV Q24H [facility] Last Admin: 11/07/16 08:58 Dose: 100 mls/hr Vancomycin HCl 1 gm/Vancomycin HCl 250 mg/ Sodium Chloride 250 mls @ 167 mls/ hr IV Q8H [facility] Last Admin: 11/07/16 08:52 Dose: 167 mls/hr Methylprednisolone Sodium Succinate (Solu-Medrol) 40 mg IVPUSH Q12H [facility] Last Admin: 11/07/16 09:06 Dose: 40 mg Montelukast Sodium (Singulair) 10 mg PO BEDTIME [facility] Last Admin: 11/06/16 20:33 Dose: 10 mg Ondansetron HCl (Zofran) 4 mg IVPUSH Q8H PRN PRN Reason: Nausea/Vomiting Actemra (Tocilizumab (800 Mg) Injection) 0 each .XX ASDIRECTED [facility] Fluticasone/Salmeterol (Advair Diskus 100-50) 1 puff INH BID [facility] Last Admin: 11/07/16 09:30 Dose: 1 puff Tolterodine Tartrate (Detrol) 2 mg PO DAILY [facility] Last Admin: 11/07/16 09:05 Dose: 2 mg Vancomycin HCl (Pharmacy To Dose - Vancomycin) 0 dose .XX ASDIRECTED PRN PRN Reason: RX DOSE Discontinued Medications Acetaminophen (Tylenol) 975 mg PO NOW ONE Stop: 11/06/16 11:41 Last Admin: 11/06/16 12:05 Dose: 975 mg Albuterol/Ipratropium (Duoneb 3.0-0.5 Mg/3 Ml) 3 ml NEB ONETIME ONE Stop: 11/06/16 11:45 Last Admin: 11/06/16 12:10 Dose: 3 ml Albuterol/Ipratropium (Duoneb 3.0-0.5 Mg/3 Ml) 3 ml NEB QID [facility] Sodium Chloride (Normal Saline) 1,000 mls @ 999 mls/hr IV ONETIME ONE Stop: 11/06/16 12:39 Last Admin: 11/06/16 12:05 Dose: 999 mls/hr Levofloxacin/Dextrose 750 mg/ (Premix) 150 mls @ 100 mls/hr IV ONETIME ONE Stop: 11/06/16 13:20 Last Admin: 11/06/16 12:05 Dose: 100 mls/hr Linezolid 600 mg/ Premix 300 mls @ 300 mls/hr IV ONETIME ONE Stop: 11/06/16 13:46 Last Admin: 11/06/16 13:07 Dose: 300 mls/hr Sodium Chloride (Normal Saline) 1,000 mls @ 999 mls/hr IV ASDIRECTED [facility] Last Infusion: 11/06/16 23:34 Dose: Infused Vancomycin HCl 1 gm/ Sodium (Chloride) 250 mls @ 250 mls/hr IV ONETIME ONE Stop: 11/06/16 21:59 Last Admin: 11/06/16 20:32 Dose: 250 mls/hr Magnesium Sulfate 2 gm/ Premix 50 mls @ 25 mls/hr IV ONETIME ONE Stop: 11/07/16 01:16 Last Admin: 11/07/16 00:04 Dose: 25 mls/hr Methylprednisolone Sodium Succinate (Solu-Medrol) 40 mg IVPUSH Q8H [facility] Methylprednisolone Sodium Succinate (Solu-Medrol) 40 mg IVPUSH Q12H [facility] Last Admin: 11/06/16 16:22 Dose: 40 mg Midazolam HCl (Versed 1 Mg/Ml) Confirm Administered Dose 2 mg .ROUTE .STK-MED ONE Stop: 11/06/16 14:22 Last Admin: 11/06/16 16:44 Dose: Not Given Midazolam HCl (Versed 1 Mg/Ml) 2 mg IVPUSH ONETIME ONE Stop: 11/06/16 14:28 Last Admin: 11/06/16 14:21 Dose: 2 mg - Exam Quality Assessment: supplemental oxygen, central line/PICC (RSCL), DVT prophylaxis General: alert, oriented, cooperative, no acute distress HEENT: Pupils equal, Pupils reactive, EOMI Neck: supple, trachea midline Lungs: Normal respiratory effort Cardiovascular: Regular Rate Abdomen: bowel sounds present, soft, no tenderness, no distension (Female) Exam: Deferred Back Exam: normal inspection Extremities: normal pulses Skin: warm Neurological: normal speech Psy/Mental Status: alert, depressed - Problem List & Annotations (1) Immunocompromised status associated with infection SNOMED Code(s): 162169594 Code(s): D84.9 - IMMUNODEFICIENCY, UNSPECIFIED; B99.9 - UNSPECIFIED INFECTIOUS DISEASE Status: Acute Current Visit: Yes (2) Pneumonia SNOMED Code(s): 465321948 Code(s): J18.9 - PNEUMONIA, UNSPECIFIED ORGANISM Status: Acute Current Visit: Yes Qualifiers: Pneumonia type: due to unspecified organism Laterality: right Lung location: lower lobe of lung Qualified Code(s): J18.1 - Lobar pneumonia, unspecified organism (3) Rheumatoid arthritis SNOMED Code(s): 31924530 Code(s): M06.9 - RHEUMATOID ARTHRITIS, UNSPECIFIED Status: Acute Current Visit: Yes Qualifiers: Rheumatoid arthritis location: multiple sites Rheumatoid factor presence: with rheumatoid factor Qualified Code(s): M05.79 - Rheumatoid arthritis with rheumatoid factor of multiple sites without organ or systems involvement (4) Septic shock SNOMED Code(s): 83259769 Code(s): A41.9 - SEPSIS, UNSPECIFIED ORGANISM; R65.21 - SEVERE SEPSIS WITH SEPTIC SHOCK Status: Acute Current Visit: Yes - Problem List Review Problem List Initiated/Reviewed/Updated: Yes - My Orders Last 24 Hours: My Active Orders 11/06/16 15:30 Acetaminophen/HYDROcodone [[place] 325-10 MG] 1 tab PO Q6H PRN Patient's Own Medication [Ptom] 0 each .XX ASDIRECTED 11/06/16 15:33 Bedrest Bathroom Privileges [RC] ASDIRECTED Vital Signs [RC] Q4HR Code Status [Resuscitation Status] Routine 11/06/16 15:38 Antiembolic Devices [RC] PER UNIT ROUTINE Isolation [COMM] Routine [place] Hose [Antiembolic Hose] [OM.PC] Routine 11/06/16 15:41 RT Aerosol Therapy [RC] .PRN 11/06/16 15:52 Communication Order [RC] 15 11/06/16 15:54 Ondansetron [Zofran] 4 mg IVPUSH Q8H PRN 11/06/16 16:00 Albuterol/Ipratropium [DuoNeb 3.0-0.5 MG/3 ML] 3 ml NEB QIDRT 11/06/16 16:08 Consult to Meat Specialist [CONS] Routine 11/06/16 16:10 Acetaminophen [Tylenol] 650 mg PO Q6H PRN 11/06/16 16:46 STREP PNEUMONIAE ANTIGEN [MREF] Routine 11/06/16 17:28 CULTURE SPUTUM + SMEAR [RM] Routine RESPIRATORY PANEL BY PCR [MREF] Routine 11/06/16 18:00 Cefepime [Maxipime in D5W 2 GM/50 ML] 2 gm Premix Bag 1 bag IV Q8H 11/06/16 21:00 Fluticasone/Salmeterol [Advair Diskus 100-50] 1 puff INH BID Hydroxychloroquine [Plaquenil] 200 mg PO BID Montelukast [Singulair] 10 mg PO BEDTIME guaiFENesin [Mucinex] 600 mg PO BID 11/06/16 23:15 Chest 1V Frontal [CR] Stat 11/07/16 07:26 Vancomycin Pharmacy to Dose [Pharmacy to Dose - Vancomycin] 0 dose .XX ASDIRECTED PRN 11/07/16 08:30 Vancomycin 1 gm Vancomycin 250 mg Sodium Chloride 0.9% [Normal Saline] 250 ml IV Q8H 11/07/16 09:00 Enoxaparin [Lovenox] 40 mg SUBCUT DAILY Levofloxacin/Dextrose 5%-Water [Levaquin in D5W 750 MG/150 ML] 750 mg Premix Bag 1 bag IV Q24H Tolterodine [Detrol] 2 mg PO DAILY methylPREDNISolone Sod Succ [Solu-MEDROL] 40 mg IVPUSH Q12H 11/07/16 10:00 Consult to Occupational Therapy [OT Evaluation and Treatment] [CONS] Routine Consult to Physical Therapy [PT Evaluation and Treatment] [CONS] Routine 11/07/16 Breakfast Clear Liquid Diet [DIET] 11/08/16 05:00 BMP [BASIC METABOLIC PANEL,BMP] [CHEM] DAILY CBC WITH AUTO DIFF [HEME] DAILY CRP [C-REACTIVE PROTEIN] [CHEM] DAILY MAGNESIUM [CHEM] DAILY 11/08/16 08:00 VANCOMYCIN TROUGH [CHEM] Timed 11/08/16 09:00 CXR [Chest 2V] [CR] Routine 11/09/16 05:00 BMP [BASIC METABOLIC PANEL,BMP] [CHEM] DAILY CBC WITH AUTO DIFF [HEME] DAILY CRP [C-REACTIVE PROTEIN] [CHEM] DAILY MAGNESIUM [CHEM] DAILY 11/10/16 05:00 BMP [BASIC METABOLIC PANEL,BMP] [CHEM] DAILY CBC WITH AUTO DIFF [HEME] DAILY CRP [C-REACTIVE PROTEIN] [CHEM] DAILY MAGNESIUM [CHEM] DAILY - Plan Plan:: Impression: Query RLL PNA with RA on immune suppressants Former Tobacco, remote Pulmonary Fibrosis by history COPD Septic with profound leukocytosis, 67.91 Lactic acid WNL today CKD, stage III Cellulitis, wound Cx sent Gm positive cocci MRSA positive Query depression Chronic HTN Rheumatoid arthritis Plan: DC droplet, start contact isolation IVF, 0.9 NS Levoquin/Cefepime/Vanco Solumedrol Nebs Clear Liquids Home meds Resp panel/ PNA screen Droplet Precautions DVT/GI prophylaxis
--- NOTE | 2016-11-07 10:52 | CR ---
Chest: Portable view of the chest was obtained. Comparison: Previous chest x-ray performed on 11/06/16. Heart size appears within normal limits for portable technique. Upper mediastinum is within normal limits. Incidental tortuous thoracic aorta is seen. Lungs are clear with no acute infiltrates. Right subclavian catheter is noted. Distal end of the catheter not well seen but appears to lie within the right atria. Impression: 1. Right subclavian line possibly within the right atria. 2. Nothing acute is otherwise seen on portable chest x-ray. Diagnostic code #3 I agree with preliminary report issued by [facility] (report finalized on 11/07/16, 1:54 AM Central Time)
[2016-11-07] MEDS: Acetaminophen/HYDROcodone 325-10 MG Tab PO PRN ×2 (14:57→23:07)
[2016-11-07] MEDS: QUEtiapine 25 MG Tab PO SCH (21:15)
[2016-11-07] MEDS: Montelukast 10 MG Tab PO SCH (21:15)
--- NOTE | 2016-11-07 22:50 | CONS ---
CONSULTING PHYSICIAN: Jvaier Bello MD DATE OF CONSULTATION: 11/07/2016 This is a 60-minute inpatient clinical event. IDENTIFICATION: The patient is a 56-year-old female, who is admitted to the MICU at [facility] on 11/06/2016 with complications from pneumonia. She is assessed for depression. CHIEF COMPLAINT: "I lost my significant other on August 15." HISTORY OF PRESENT ILLNESS: The patient is a 56-year-old female, who reports that she has been struggling with increased "cough, fever, and pneumonia" for about the past week. She was brought to hospital by her son and daughter. Complicating her clinical picture is the fact that she has been struggling with depression and some anxiety. She states she is "just sad" all the time, because her partner for the past 32 years and the father of her 2 children suddenly in August secondary to heart attack. Since that time, the patient has been depressed, lack of appetite, multiple crying episodes during the days, increase isolative behavior and poor sleep patterns. The patient also endorses a significant lack of interest in racing thoughts and ruminations to the point of distraction. She denies that she is suicidal or homicidal. She denies any acute psychotic, delusional, or paranoid symptoms, but she just feels very hopeless. She is stating that she would like to have something to help her with her depression that will help her not feel so sad. She does not think she needs anything for anxiety, but she would also be open to having something to help her with her sleep, because she is brooding all the time at night. MEDICATIONS: At time of presentation. 1. Craig for pain. 2. Antibiotics for pneumonia. ALLERGIES: No known drug allergies. PAST MEDICAL HISTORY: Significant for pneumonia. REVIEW OF SYSTEMS: Aside from pulmonary all other major organ systems are negative at this point in time for acute difficulties or complications. PAST PSYCHIATRIC AND CD HISTORY: The patient denies any previous psychiatric hospitalizations or chemical dependency treatments. Denies any previous suicide attempts or self-injurious behaviors. Denies any past psychiatric medication history. SOCIAL HISTORY: The patient is born in [place], raised in [place], [place]. Parents were throughout her childhood and adolescence. Her father was a ranching and mother was a homemaker. The patient has been living in [place] with the same sylvain for the past 32 years. She has a son and daughter from this relationship. He recently in August secondary to heart attack. She is currently living in [place], she is raised Anabaptist. MENTAL STATUS EXAM: The patient is a 56-year-old female from [facility] in no apparent distress. Speech is of regular rate and rhythm. The patient is cognitively oriented. Psychomotor activities within normal limits. There is no abnormal motor movements or tics observed. Gait and station are not observed as the patient is seated for the entirety of the interview. Mood is depressed. Affect is consistent with stated mood, restricted, and tearful, but cooperative overall for the purposes of the inpatient psychiatric consult. There is no behavioral or stated evidence of acute suicidal or homicidal ideation or acute psychotic, delusional, paranoid symptoms. Thought processes are significant for racing thoughts and ruminations. There are no manic symptoms, loose associations evident. Judgment and insight appear unimpaired at this point in time. Motivation for help is good. VITAL SIGNS: 95/61, 88, 14, and 97.1 degrees. IMPRESSION: [place] I: 1. Major depressive disorder, F32.3. 2. Rule out posttraumatic stress disorder, F43.10. [place] II: None. [place] III: Pneumonia. [place] IV. Severe. [place] V: 50. PLAN: 1. Pastoral guidance. 2. Begin trial of Prozac 20 mg q.a.m. to help with symptoms of depression. 3. Begin trial of Seroquel 12.5 mg at bedtime to help with sleep initiation and maintenance and to help with reducing racing thoughts and ruminations. 4. We will continue to follow up with patient on a regular basis as needed while she remains on inpatient MICU. 5. We will follow up with patient sooner if there are complications in the interim. 6. Other medications per treatment plan protocol as prescribed by the patient's primary medical treatment team. 7. Pastoral guidance if not already ordered. 8. Crisis plan is in place. MMCAESAR /[id number]
[2016-11-08] MEDS: Vancomycin 1 GM, Vancomycin 250 MG in Sodium Chloride 0.9% 250 ML IV SCH ×3 (01:21→17:29)
[2016-11-08] MEDS: Cefepime 2 GM in Premix Bag 1 BAG IV SCH ×3 (01:21→17:30)
[2016-11-08] MEDS: Albuterol/Ipratropium 3.0-0.5 MG/3 ML Neb Soln NEB SCH ×4 (06:22→21:39)
[2016-11-08] MEDS: Fluticasone/Salmeterol 100-50 MCG Inhalation Powder 14/Diskus INH SCH ×2 (09:23→21:39)
[2016-11-08] MEDS: methylPREDNISolone Sodium Succinate 40 MG/1 ML SDV IVPUSH SCH ×2 (09:27→21:05)
[2016-11-08] MEDS: Enoxaparin 40 MG/0.4 ML Syringe SUBCUT SCH (09:29)
[2016-11-08] MEDS: Tolterodine 2 MG Tab PO SCH (09:31)
[2016-11-08] MEDS: guaiFENesin 600 MG Tab.ER PO SCH ×2 (09:32→21:02)
[2016-11-08] MEDS: Levofloxacin/Dextrose 5%-Water 750 MG in Premix Bag 1 BAG IV SCH (09:32)
[2016-11-08] MEDS: Hydroxychloroquine 200 MG Tab PO SCH ×2 (09:32→21:02)
[2016-11-08] MEDS: FLUoxetine 20 MG Cap PO SCH (09:32)
[2016-11-08] MEDS: Saccharomyces Boulardii (Probiotic) 250 MG Cap PO SCH ×2 (11:45→21:02)
[2016-11-08] MEDS: Acetaminophen/HYDROcodone 325-10 MG Tab PO PRN (14:57)
--- NOTE | 2016-11-08 17:16 | PCM.PN ---
- General Info Date of Service: 11/08/16 Functional Status: Reports: tolerating diet - Review of Systems General: Reports: Weakness HEENT: Reports: no symptoms Pulmonary: Reports: shortness of breath Cardiovascular: Reports: No Symptoms Gastrointestinal: Reports: No symptoms Genitourinary: Reports: no symptoms Musculoskeletal: Reports: no symptoms Skin: Reports: no symptoms Neurological: Reports: No Symptoms Psychiatric: Reports: no symptoms - Patient Data Vitals - most recent: Last Vital Signs Temp 36.2 C 11/08/16 08:00 Pulse 104 H 11/06/16 16:00 Resp 18 11/08/16 08:00 BP 112/69 11/08/16 08:00 Pulse Ox 98 11/08/16 15:19 Weight - most recent: 106.186 kg I&O - last 24 hours: Intake & Output 11/08/16 11/08/16 11/08/16 06:59 14:59 22:59 Intake Total 300 550 770 Output Total 400 1000 Balance -100 -450 770 Lab Results last 24 hrs: Laboratory Results - last 24 hr 11/08/16 11/08/16 11/08/16 Range/Units 04:50 04:50 08:09 WBC 43.39 H (3.98-10.04) K/mm3 RBC 3.97 L (3.98-5.22) M/mm3 Hgb 10.4 L (11.2-15.7) gm/L Hct 32.7 L (34.1-44.9) % MCV 82.4 (79.4-94.8) fl MCH 26.2 (25.6-32.2) pg MCHC 31.8 L (32.2-35.5) g/dl RDW Std Deviation 44.1 (36.4-46.3) fL Plt Count 166 L (182-369) K/mm3 MPV 10.3 (9.4-12.3) fl Neut % (Auto) 96.7 H (34.0-71.1) % Lymph % (Auto) 2.0 L (19.3-51.7) % [place] % (Auto) 0.7 L (4.7-12.5) % Eos % (Auto) 0 L (0.7-5.8) Baso % (Auto) 0.0 L (0.1-1.2) % Neut # (Auto) 41.94 H (1.56-6.13) K/mm3 Lymph # (Auto) 0.87 L (1.18-3.74) K/mm3 [place] # (Auto) 0.32 (0.24-0.36) K/mm3 Eos # (Auto) 0.00 L (0.04-0.36) K/mm3 Baso # (Auto) 0.02 (0.01-0.08) K/mm3 Manual Slide Review Abnormal smear Sodium 146 H (136-145) mEq/L Potassium 4.4 (3.5-5.1) mEq/L Chloride 113 H (98-107) mEq/L Carbon Dioxide 21 (21-32) mEq/L Anion Gap 16.4 H (5-15) BUN 13 (7-18) mg/dL Creatinine 0.7 (0.55-1.02) mg/dL Est Cr Clr Drug Dosing 89.45 mL/min Estimated GFR (MDRD) > 60 (>60) mL/min BUN/Creatinine Ratio 18.6 H (14-18) Glucose 143 H (74-106) mg/dL Calcium 7.9 L (8.5-10.1) mg/dL Magnesium 2.2 (1.8-2.4) mg/dl C-Reactive Protein 4.8 H* (<1.0) mg/dL Vancomycin Trough 14.3 (10.0-20.0) Avery Results last 24 hrs: Microbiology 11/06/16 17:28 Gram Stain - Final Sputum - Expectorated 11/07/16 11:30 Wound Culture - Preliminary Flank, Right Gram Positive Cocci 11/06/16 17:28 Respiratory Virus Panel (PCR) ([facility]) - Final Nasopharyngeal Swab 11/06/16 16:46 Streptococcus pneumoniae Antigen (M - Final Urine Med Orders - Current: Current Medications Acetaminophen (Tylenol) 650 mg PO Q6H PRN PRN Reason: Fever Hydrocodone Bitart/Acetaminophen ([place] 325-10 Mg) 1 tab PO Q6H PRN PRN Reason: Pain Last Admin: 11/08/16 14:57 Dose: 1 tab Albuterol/Ipratropium (Duoneb 3.0-0.5 Mg/3 Ml) 3 ml NEB QIDRT DANA Last Admin: 11/08/16 15:19 Dose: 3 ml Enoxaparin Sodium (Lovenox) 40 mg SUBCUT DAILY [facility] Last Admin: 11/08/16 09:29 Dose: 40 mg Fluoxetine HCl (Prozac) 20 mg PO DAILY [facility] Last Admin: 11/08/16 09:32 Dose: 20 mg Guaifenesin (Mucinex) 600 mg PO BID [facility] Last Admin: 11/08/16 09:32 Dose: 600 mg Hydroxychloroquine Sulfate (Plaquenil) 200 mg PO BID [facility] Last Admin: 11/08/16 09:32 Dose: 200 mg Norepinephrine Bitartrate 4 mg (/ Dextrose/Water) 250 mls @ 15 mls/hr IV TITRATE DANA; 4 MCG/MIN PRN Reason: Protocol Last Titration: 11/07/16 02:06 Dose: 0 mcg/min, 0 mls/hr Cefepime HCl 2 gm/ Premix 50 mls @ 100 mls/hr IV Q8H [facility] Last Admin: 11/08/16 09:41 Dose: 100 mls/hr Levofloxacin/Dextrose 750 mg/ (Premix) 150 mls @ 100 mls/hr IV Q24H [facility] Last Admin: 11/08/16 09:32 Dose: 100 mls/hr Vancomycin HCl 1 gm/Vancomycin HCl 250 mg/ Sodium Chloride 250 mls @ 167 mls/ hr IV Q8H [facility] Last Admin: 11/08/16 09:48 Dose: 167 mls/hr Methylprednisolone Sodium Succinate (Solu-Medrol) 40 mg IVPUSH Q12H [facility] Last Admin: 11/08/16 09:27 Dose: 40 mg Montelukast Sodium (Singulair) 10 mg PO BEDTIME [facility] Last Admin: 11/07/16 21:15 Dose: 10 mg Ondansetron HCl (Zofran) 4 mg IVPUSH Q8H PRN PRN Reason: Nausea/Vomiting Actemra (Tocilizumab (800 Mg) Injection) 0 each .XX ASDIRECTED [facility] Quetiapine Fumarate (Seroquel) 12.5 mg PO BEDTIME [facility] Last Admin: 11/07/16 21:15 Dose: 12.5 mg Saccharomyces Boulardii (Florastor) 500 mg PO BID [facility] Last Admin: 11/08/16 11:45 Dose: 500 mg Fluticasone/Salmeterol (Advair Diskus 100-50) 1 puff INH BID [facility] Last Admin: 11/08/16 09:23 Dose: 1 puff Tolterodine Tartrate (Detrol) 2 mg PO DAILY [facility] Last Admin: 11/08/16 09:31 Dose: 2 mg Vancomycin HCl (Pharmacy To Dose - Vancomycin) 0 dose .XX ASDIRECTED PRN PRN Reason: RX DOSE Discontinued Medications Acetaminophen (Tylenol) 975 mg PO NOW ONE Stop: 11/06/16 11:41 Last Admin: 11/06/16 12:05 Dose: 975 mg Albuterol/Ipratropium (Duoneb 3.0-0.5 Mg/3 Ml) 3 ml NEB ONETIME ONE Stop: 11/06/16 11:45 Last Admin: 11/06/16 12:10 Dose: 3 ml Albuterol/Ipratropium (Duoneb 3.0-0.5 Mg/3 Ml) 3 ml NEB QID [facility] Sodium Chloride (Normal Saline) 1,000 mls @ 999 mls/hr IV ONETIME ONE Stop: 11/06/16 12:39 Last Admin: 11/06/16 12:05 Dose: 999 mls/hr Levofloxacin/Dextrose 750 mg/ (Premix) 150 mls @ 100 mls/hr IV ONETIME ONE Stop: 11/06/16 13:20 Last Admin: 11/06/16 12:05 Dose: 100 mls/hr Linezolid 600 mg/ Premix 300 mls @ 300 mls/hr IV ONETIME ONE Stop: 11/06/16 13:46 Last Admin: 11/06/16 13:07 Dose: 300 mls/hr Sodium Chloride (Normal Saline) 1,000 mls @ 999 mls/hr IV ASDIRECTED [facility] Last Infusion: 11/06/16 23:34 Dose: Infused Vancomycin HCl 1 gm/ Sodium (Chloride) 250 mls @ 250 mls/hr IV ONETIME ONE Stop: 11/06/16 21:59 Last Admin: 11/06/16 20:32 Dose: 250 mls/hr Magnesium Sulfate 2 gm/ Premix 50 mls @ 25 mls/hr IV ONETIME ONE Stop: 11/07/16 01:16 Last Admin: 11/07/16 00:04 Dose: 25 mls/hr Methylprednisolone Sodium Succinate (Solu-Medrol) 40 mg IVPUSH Q8H [facility] Methylprednisolone Sodium Succinate (Solu-Medrol) 40 mg IVPUSH Q12H [facility] Last Admin: 11/06/16 16:22 Dose: 40 mg Midazolam HCl (Versed 1 Mg/Ml) Confirm Administered Dose 2 mg .ROUTE .STK-MED ONE Stop: 11/06/16 14:22 Last Admin: 11/06/16 16:44 Dose: Not Given Midazolam HCl (Versed 1 Mg/Ml) 2 mg IVPUSH ONETIME ONE Stop: 11/06/16 14:28 Last Admin: 11/06/16 14:21 Dose: 2 mg - Exam Quality Assessment: supplemental oxygen, central line/PICC, DVT prophylaxis General: alert, oriented, cooperative, no acute distress HEENT: Pupils equal, Pupils reactive, EOMI Neck: supple, trachea midline Lungs: Normal respiratory effort Cardiovascular: Regular Rate, Regular Rhythm Abdomen: bowel sounds present, soft, no tenderness, no distension (Female) Exam: Deferred Back Exam: normal inspection Extremities: normal pulses Skin: warm Neurological: no new focal deficit, normal speech Psy/Mental Status: alert - Problem List & Annotations (1) Immunocompromised status associated with infection SNOMED Code(s): 657890065 Code(s): D84.9 - IMMUNODEFICIENCY, UNSPECIFIED; B99.9 - UNSPECIFIED INFECTIOUS DISEASE Status: Acute Current Visit: Yes (2) Pneumonia SNOMED Code(s): 571424755 Code(s): J18.9 - PNEUMONIA, UNSPECIFIED ORGANISM Status: Acute Current Visit: Yes Qualifiers: Pneumonia type: due to unspecified organism Laterality: right Lung location: lower lobe of lung Qualified Code(s): J18.1 - Lobar pneumonia, unspecified organism (3) Rheumatoid arthritis SNOMED Code(s): 88083675 Code(s): M06.9 - RHEUMATOID ARTHRITIS, UNSPECIFIED Status: Acute Current Visit: Yes Qualifiers: Rheumatoid arthritis location: multiple sites Rheumatoid factor presence: with rheumatoid factor Qualified Code(s): M05.79 - Rheumatoid arthritis with rheumatoid factor of multiple sites without organ or systems involvement (4) Septic shock SNOMED Code(s): 98860345 Code(s): A41.9 - SEPSIS, UNSPECIFIED ORGANISM; R65.21 - SEVERE SEPSIS WITH SEPTIC SHOCK Status: Acute Current Visit: Yes - Problem List Review Problem List Initiated/Reviewed/Updated: Yes - My Orders Last 24 Hours: My Active Orders 11/07/16 Dinner Heart Healthy Diet [DIET] 11/08/16 11:26 Admission Status [Patient Status] [ADT] Routine Cardiac Monitoring [RC] . DIRECTED 11/08/16 11:30 Saccharomyces Boulardii [Florastor] 500 mg PO BID 11/09/16 05:00 BMP [BASIC METABOLIC PANEL,BMP] [CHEM] DAILY CBC WITH AUTO DIFF [HEME] DAILY CRP [C-REACTIVE PROTEIN] [CHEM] DAILY MAGNESIUM [CHEM] DAILY 11/10/16 05:00 BMP [BASIC METABOLIC PANEL,BMP] [CHEM] DAILY CBC WITH AUTO DIFF [HEME] DAILY CRP [C-REACTIVE PROTEIN] [CHEM] DAILY MAGNESIUM [CHEM] DAILY 11/10/16 09:00 CXR [Chest 2V] [CR] Routine - Plan Plan:: Impression: RLL PNA with RA on immune suppressants Strep pneumo Bacteremia, Strep pneumo Former Tobacco, remote Pulmonary Fibrosis by history COPD Leukocytosis, 67.91---decreasing slowly CKD, stage III Cellulitis, wound Cx sent, pending Gm positive cocci MRSA positive Query depression, seen by psychiatry Chronic HTN Rheumatoid arthritis Plan: DC droplet/contact isolation IVF, 0.9 NS Levoquin/Cefepime/Vanco Solumedrol Nebs Clear Liquids Home meds Resp panel/ PNA screen Droplet Precautions DVT/GI prophylaxis LOS will be >96 hours with current treatment for PNA with bacteremia
[2016-11-08] MEDS: Montelukast 10 MG Tab PO SCH (21:03)
[2016-11-08] MEDS: QUEtiapine 25 MG Tab PO SCH (21:03)
[2016-11-09] MEDS: Vancomycin 1 GM, Vancomycin 250 MG in Sodium Chloride 0.9% 250 ML IV SCH ×3 (01:21→16:44)
[2016-11-09] MEDS: Cefepime 2 GM in Premix Bag 1 BAG IV SCH (01:24)
[2016-11-09] MEDS: Albuterol/Ipratropium 3.0-0.5 MG/3 ML Neb Soln NEB SCH ×4 (06:57→20:48)
[2016-11-09] MEDS: Fluticasone/Salmeterol 100-50 MCG Inhalation Powder 14/Diskus INH SCH ×2 (09:11→20:53)
[2016-11-09] MEDS: Saccharomyces Boulardii (Probiotic) 250 MG Cap PO SCH ×2 (09:32→22:18)
[2016-11-09] MEDS: guaiFENesin 600 MG Tab.ER PO SCH ×2 (09:32→21:58)
[2016-11-09] MEDS: FLUoxetine 20 MG Cap PO SCH (09:32)
[2016-11-09] MEDS: Hydroxychloroquine 200 MG Tab PO SCH ×2 (09:32→21:58)
[2016-11-09] MEDS: Levofloxacin/Dextrose 5%-Water 750 MG in Premix Bag 1 BAG IV SCH (09:33)
[2016-11-09] MEDS: Enoxaparin 40 MG/0.4 ML Syringe SUBCUT SCH (09:33)
[2016-11-09] MEDS: Tolterodine 2 MG Tab PO SCH (09:33)
[2016-11-09] MEDS: methylPREDNISolone Sodium Succinate 40 MG/1 ML SDV IVPUSH SCH ×2 (09:33→22:00)
--- NOTE | 2016-11-09 10:25 | PCM.PN ---
- General Info Date of Service: 11/09/16 Admission Dx/Problem (Free Text): Decreased generalized weakness, feels stronger. Functional Status: Reports: tolerating diet, ambulating, urinating - Review of Systems General: Reports: No Symptoms HEENT: Reports: no symptoms Pulmonary: Reports: no symptoms Cardiovascular: Reports: No Symptoms Gastrointestinal: Reports: No symptoms Genitourinary: Reports: no symptoms Musculoskeletal: Reports: no symptoms Skin: Reports: no symptoms Neurological: Reports: No Symptoms Psychiatric: Reports: no symptoms - Patient Data Vitals - most recent: Last Vital Signs Temp 36.4 C 11/09/16 07:53 Pulse 77 11/09/16 00:00 Resp 16 11/09/16 07:53 BP 144/69 H 11/09/16 04:00 Pulse Ox 97 11/09/16 09:11 Weight - most recent: 104.7 kg I&O - last 24 hours: Intake & Output 11/08/16 11/09/16 11/09/16 22:59 06:59 14:59 Intake Total 1720 1100 Output Total 200 1200 Balance 1520 -100 Lab Results last 24 hrs: Laboratory Results - last 24 hr 11/09/16 11/09/16 Range/Units 05:00 05:00 WBC 29.05 H (3.98-10.04) K/mm3 RBC 4.06 (3.98-5.22) M/mm3 Hgb 10.8 L (11.2-15.7) gm/L Hct 33.4 L (34.1-44.9) % MCV 82.3 (79.4-94.8) fl MCH 26.6 (25.6-32.2) pg MCHC 32.3 (32.2-35.5) g/dl RDW Std Deviation 45.5 (36.4-46.3) fL Plt Count 149 L (182-369) K/mm3 MPV 10.2 (9.4-12.3) fl Neut % (Auto) 94.3 H (34.0-71.1) % Lymph % (Auto) 3.1 L (19.3-51.7) % [place] % (Auto) 1.3 L (4.7-12.5) % Eos % (Auto) 0 L (0.7-5.8) Baso % (Auto) 0.1 (0.1-1.2) % Neut # (Auto) 27.38 H (1.56-6.13) K/mm3 Lymph # (Auto) 0.91 L (1.18-3.74) K/mm3 [place] # (Auto) 0.38 H (0.24-0.36) K/mm3 Eos # (Auto) 0.00 L (0.04-0.36) K/mm3 Baso # (Auto) 0.02 (0.01-0.08) K/mm3 Manual Slide Review Not Reportable Sodium 143 (136-145) mEq/L Potassium 4.2 (3.5-5.1) mEq/L Chloride 111 H (98-107) mEq/L Carbon Dioxide 23 (21-32) mEq/L Anion Gap 13.2 (5-15) BUN 14 (7-18) mg/dL Creatinine 0.6 (0.55-1.02) mg/dL Est Cr Clr Drug Dosing 104.35 mL/min Estimated GFR (MDRD) > 60 (>60) mL/min BUN/Creatinine Ratio 23.3 H (14-18) Glucose 134 H (74-106) mg/dL Calcium 7.8 L (8.5-10.1) mg/dL Magnesium 1.9 (1.8-2.4) mg/dl C-Reactive Protein 1.9 H* (<1.0) mg/dL [facility] Results last 24 hrs: Microbiology 11/06/16 17:28 Gram Stain - Final Sputum - Expectorated Sputum Culture - Final Normal Avis 11/07/16 11:30 Wound Culture - Final Flank, Right (Mrsa) Staphylococcus Aureus 11/06/16 17:28 Respiratory Virus Panel (PCR) ([facility]) - Final Nasopharyngeal Swab Med Orders - Current: Current Medications Acetaminophen (Tylenol) 650 mg PO Q6H PRN PRN Reason: Fever Hydrocodone Bitart/Acetaminophen ([place] 325-10 Mg) 1 tab PO Q6H PRN PRN Reason: Pain Last Admin: 11/08/16 14:57 Dose: 1 tab Albuterol/Ipratropium (Duoneb 3.0-0.5 Mg/3 Ml) 3 ml NEB QIDRT DANA Last Admin: 11/09/16 09:11 Dose: 3 ml Enoxaparin Sodium (Lovenox) 40 mg SUBCUT DAILY [facility] Last Admin: 11/09/16 09:33 Dose: 40 mg Fluoxetine HCl (Prozac) 20 mg PO DAILY [facility] Last Admin: 11/09/16 09:32 Dose: 20 mg Guaifenesin (Mucinex) 600 mg PO BID [facility] Last Admin: 11/09/16 09:32 Dose: 600 mg Hydroxychloroquine Sulfate (Plaquenil) 200 mg PO BID [facility] Last Admin: 11/09/16 09:32 Dose: 200 mg Norepinephrine Bitartrate 4 mg (/ Dextrose/Water) 250 mls @ 15 mls/hr IV TITRATE DANA; 4 MCG/MIN PRN Reason: Protocol Last Titration: 11/07/16 02:06 Dose: 0 mcg/min, 0 mls/hr Levofloxacin/Dextrose 750 mg/ (Premix) 150 mls @ 100 mls/hr IV Q24H [facility] Last Admin: 11/09/16 09:33 Dose: 100 mls/hr Vancomycin HCl 1 gm/Vancomycin HCl 250 mg/ Sodium Chloride 250 mls @ 167 mls/ hr IV Q8H [facility] Last Admin: 11/09/16 07:48 Dose: 167 mls/hr Methylprednisolone Sodium Succinate (Solu-Medrol) 40 mg IVPUSH Q12H [facility] Last Admin: 11/09/16 09:33 Dose: 40 mg Montelukast Sodium (Singulair) 10 mg PO BEDTIME [facility] Last Admin: 11/08/16 21:03 Dose: 10 mg Ondansetron HCl (Zofran) 4 mg IVPUSH Q8H PRN PRN Reason: Nausea/Vomiting Actemra (Tocilizumab (800 Mg) Injection) 0 each .XX ASDIRECTED [facility] Quetiapine Fumarate (Seroquel) 12.5 mg PO BEDTIME [facility] Last Admin: 11/08/16 21:03 Dose: 12.5 mg Saccharomyces Boulardii (Florastor) 500 mg PO BID [facility] Last Admin: 11/09/16 09:32 Dose: 500 mg Fluticasone/Salmeterol (Advair Diskus 100-50) 1 puff INH BID [facility] Last Admin: 11/09/16 09:11 Dose: 1 puff Tolterodine Tartrate (Detrol) 2 mg PO DAILY [facility] Last Admin: 11/09/16 09:33 Dose: 2 mg Vancomycin HCl (Pharmacy To Dose - Vancomycin) 0 dose .XX ASDIRECTED PRN PRN Reason: RX DOSE Discontinued Medications Acetaminophen (Tylenol) 975 mg PO NOW ONE Stop: 11/06/16 11:41 Last Admin: 11/06/16 12:05 Dose: 975 mg Albuterol/Ipratropium (Duoneb 3.0-0.5 Mg/3 Ml) 3 ml NEB ONETIME ONE Stop: 11/06/16 11:45 Last Admin: 11/06/16 12:10 Dose: 3 ml Albuterol/Ipratropium (Duoneb 3.0-0.5 Mg/3 Ml) 3 ml NEB QID [facility] Sodium Chloride (Normal Saline) 1,000 mls @ 999 mls/hr IV ONETIME ONE Stop: 11/06/16 12:39 Last Admin: 11/06/16 12:05 Dose: 999 mls/hr Levofloxacin/Dextrose 750 mg/ (Premix) 150 mls @ 100 mls/hr IV ONETIME ONE Stop: 11/06/16 13:20 Last Admin: 11/06/16 12:05 Dose: 100 mls/hr Linezolid 600 mg/ Premix 300 mls @ 300 mls/hr IV ONETIME ONE Stop: 11/06/16 13:46 Last Admin: 11/06/16 13:07 Dose: 300 mls/hr Cefepime HCl 2 gm/ Premix 50 mls @ 100 mls/hr IV Q8H [facility] Last Admin: 11/09/16 01:24 Dose: 100 mls/hr Sodium Chloride (Normal Saline) 1,000 mls @ 999 mls/hr IV ASDIRECTED [facility] Last Infusion: 11/06/16 23:34 Dose: Infused Vancomycin HCl 1 gm/ Sodium (Chloride) 250 mls @ 250 mls/hr IV ONETIME ONE Stop: 11/06/16 21:59 Last Admin: 11/06/16 20:32 Dose: 250 mls/hr Magnesium Sulfate 2 gm/ Premix 50 mls @ 25 mls/hr IV ONETIME ONE Stop: 11/07/16 01:16 Last Admin: 11/07/16 00:04 Dose: 25 mls/hr Methylprednisolone Sodium Succinate (Solu-Medrol) 40 mg IVPUSH Q8H [facility] Methylprednisolone Sodium Succinate (Solu-Medrol) 40 mg IVPUSH Q12H [facility] Last Admin: 11/06/16 16:22 Dose: 40 mg Midazolam HCl (Versed 1 Mg/Ml) Confirm Administered Dose 2 mg .ROUTE .STK-MED ONE Stop: 11/06/16 14:22 Last Admin: 11/06/16 16:44 Dose: Not Given Midazolam HCl (Versed 1 Mg/Ml) 2 mg IVPUSH ONETIME ONE Stop: 11/06/16 14:28 Last Admin: 11/06/16 14:21 Dose: 2 mg - Exam Quality Assessment: DVT prophylaxis General: alert, oriented, cooperative, no acute distress HEENT: Pupils equal, Pupils reactive, EOMI Neck: supple, trachea midline Lungs: Normal respiratory effort, Decreased breath sounds (bilateral bases) Cardiovascular: Regular Rate, Regular Rhythm Abdomen: bowel sounds present, soft, no tenderness, no distension (Female) Exam: Deferred Back Exam: normal inspection Extremities: normal pulses Skin: warm Neurological: no new focal deficit, normal gait, normal speech Psy/Mental Status: alert, depressed - Problem List & Annotations (1) Immunocompromised status associated with infection SNOMED Code(s): 679884227 Code(s): D84.9 - IMMUNODEFICIENCY, UNSPECIFIED; B99.9 - UNSPECIFIED INFECTIOUS DISEASE Status: Acute Current Visit: Yes (2) Pneumonia SNOMED Code(s): 468768055 Code(s): J18.9 - PNEUMONIA, UNSPECIFIED ORGANISM Status: Acute Current Visit: Yes Qualifiers: Pneumonia type: due to unspecified organism Laterality: right Lung location: lower lobe of lung Qualified Code(s): J18.1 - Lobar pneumonia, unspecified organism (3) Rheumatoid arthritis SNOMED Code(s): 37641451 Code(s): M06.9 - RHEUMATOID ARTHRITIS, UNSPECIFIED Status: Acute Current Visit: Yes Qualifiers: Rheumatoid arthritis location: multiple sites Rheumatoid factor presence: with rheumatoid factor Qualified Code(s): M05.79 - Rheumatoid arthritis with rheumatoid factor of multiple sites without organ or systems involvement (4) Septic shock SNOMED Code(s): 54807008 Code(s): A41.9 - SEPSIS, UNSPECIFIED ORGANISM; R65.21 - SEVERE SEPSIS WITH SEPTIC SHOCK Status: Acute Current Visit: Yes - Problem List Review Problem List Initiated/Reviewed/Updated: Yes - My Orders Last 24 Hours: My Active Orders 11/08/16 11:26 Admission Status [Patient Status] [ADT] Routine Cardiac Monitoring [RC] . DIRECTED 11/08/16 11:30 Saccharomyces Boulardii [Florastor] 500 mg PO BID 11/09/16 16:00 VANCOMYCIN TROUGH [CHEM] Stat 11/10/16 05:00 BMP [BASIC METABOLIC PANEL,BMP] [CHEM] DAILY CBC WITH AUTO DIFF [HEME] DAILY CRP [C-REACTIVE PROTEIN] [CHEM] DAILY MAGNESIUM [CHEM] DAILY 11/10/16 09:00 CXR [Chest 2V] [CR] Routine - Plan Plan:: Impression: RLL PNA with RA on immune suppressants Strep pneumo Bacteremia, Strep pneumo Former Tobacco, remote Pulmonary Fibrosis by history COPD Leukocytosis, 67.91---decreasing slowly CKD, stage III Wound Cx, MRSA MRSA positive nares screen Major Depression Query PTSD Chronic HTN Rheumatoid arthritis Plan: Changed to [place] tele yesterday Droplet/contact isolation IVF, 0.9 NS Levoquin/Vanco; Cefepime has been stopped today Solumedrol Nebs Clear Liquids Home meds DVT/GI prophylaxis LOS >96 hours with current treatment for PNA with bacteremia
[2016-11-09] MEDS ORDERED: Pneumococcal Polyvalent-23 Vaccine 0.5 ML SDV IM ONE (11:06)
[2016-11-09] MEDS: Acetaminophen/HYDROcodone 325-10 MG Tab PO PRN ×2 (11:33→21:58)
[2016-11-09] MEDS: Montelukast 10 MG Tab PO SCH (21:58)
[2016-11-09] MEDS: QUEtiapine 25 MG Tab PO SCH (21:59)
[2016-11-10] MEDS: Vancomycin 1 GM, Vancomycin 250 MG in Sodium Chloride 0.9% 250 ML IV SCH (00:27)
[2016-11-10] MEDS: Albuterol/Ipratropium 3.0-0.5 MG/3 ML Neb Soln NEB SCH ×4 (05:34→20:05)
[2016-11-10] MEDS: Saccharomyces Boulardii (Probiotic) 250 MG Cap PO SCH ×2 (09:05→20:10)
[2016-11-10] MEDS: Levofloxacin/Dextrose 5%-Water 750 MG in Premix Bag 1 BAG IV SCH (09:05)
[2016-11-10] MEDS: Enoxaparin 40 MG/0.4 ML Syringe SUBCUT SCH (09:05)
[2016-11-10] MEDS: FLUoxetine 20 MG Cap PO SCH (09:06)
[2016-11-10] MEDS: Tolterodine 2 MG Tab PO SCH (09:06)
[2016-11-10] MEDS: guaiFENesin 600 MG Tab.ER PO SCH ×2 (09:06→20:10)
[2016-11-10] MEDS: Hydroxychloroquine 200 MG Tab PO SCH ×2 (09:06→20:12)
[2016-11-10] MEDS: methylPREDNISolone Sodium Succinate 40 MG/1 ML SDV IVPUSH SCH ×2 (09:06→20:12)
[2016-11-10] MEDS: Fluticasone/Salmeterol 100-50 MCG Inhalation Powder 14/Diskus INH SCH ×2 (09:39→20:06)
[2016-11-10] MEDS ORDERED: Docusate Sodium 100 MG Cap PO PRN (10:21)
--- NOTE | 2016-11-10 10:35 | CR ---
Chest: Two views of the chest were obtained. Comparison: Previous chest x-ray of 11/07/16. Heart size appears within normal limits. Tortuous thoracic aorta is seen. Right subclavian catheter is seen. Distal end appears to lie within the right atrium but is not well seen. Lung markings mildly increased which appear to be chronic. Diaphragms flattened on the lateral view suspicious for emphysematous change. Scattered degenerative change noted within the spine. Impression: 1. Tip of right subclavian catheter likely within the right atrium. 2. Possible emphysematous change. 3. Other findings felt to be stable as described above. Diagnostic code #3
[2016-11-10] MEDS: Acetaminophen/HYDROcodone 325-10 MG Tab PO PRN ×2 (10:37→21:40)
--- NOTE | 2016-11-10 19:56 | PCM.PN ---
- General Info Date of Service: 11/10/16 Functional Status: Reports: tolerating diet, ambulating, urinating - Review of Systems General: Reports: No Symptoms HEENT: Reports: no symptoms Pulmonary: Reports: shortness of breath Cardiovascular: Reports: No Symptoms Gastrointestinal: Reports: No symptoms Genitourinary: Reports: no symptoms Musculoskeletal: Reports: no symptoms Skin: Reports: no symptoms Neurological: Reports: No Symptoms Psychiatric: Reports: no symptoms - Patient Data Vitals - most recent: Last Vital Signs Temp 36.7 C 11/10/16 16:00 Pulse 64 11/10/16 17:50 Resp 18 11/10/16 16:00 BP 144/73 H 11/10/16 17:50 Pulse Ox 97 11/10/16 17:50 Weight - most recent: 103.238 kg I&O - last 24 hours: Intake & Output 11/10/16 11/10/16 11/10/16 06:59 14:59 22:59 Intake Total 354 882 6015 Output Total 286 638 7312 Balance 165 -200 890 Lab Results last 24 hrs: Laboratory Results - last 24 hr 11/10/16 11/10/16 Range/Units 04:58 04:58 WBC 22.36 H (3.98-10.04) K/mm3 RBC 4.44 (3.98-5.22) M/mm3 Hgb 11.6 (11.2-15.7) gm/L Hct 35.9 (34.1-44.9) % MCV 80.9 (79.4-94.8) fl MCH 26.1 (25.6-32.2) pg MCHC 32.3 (32.2-35.5) g/dl RDW Std Deviation 44.4 (36.4-46.3) fL Plt Count 160 L (182-369) K/mm3 MPV 10.4 (9.4-12.3) fl Neut % (Auto) 89.9 H (34.0-71.1) % Lymph % (Auto) 5.7 L (19.3-51.7) % [place] % (Auto) 1.9 L (4.7-12.5) % Eos % (Auto) 0 L (0.7-5.8) Baso % (Auto) 0.1 (0.1-1.2) % Neut # (Auto) 20.10 H (1.56-6.13) K/mm3 Lymph # (Auto) 1.27 (1.18-3.74) K/mm3 [place] # (Auto) 0.42 H (0.24-0.36) K/mm3 Eos # (Auto) 0.01 L (0.04-0.36) K/mm3 Baso # (Auto) 0.02 (0.01-0.08) K/mm3 Manual Slide Review Abnormal smear Sodium 142 (136-145) mEq/L Potassium 4.1 (3.5-5.1) mEq/L Chloride 109 H (98-107) mEq/L Carbon Dioxide 24 (21-32) mEq/L Anion Gap 13.1 (5-15) BUN 13 (7-18) mg/dL Creatinine 0.6 (0.55-1.02) mg/dL Est Cr Clr Drug Dosing 104.35 mL/min Estimated GFR (MDRD) > 60 (>60) mL/min BUN/Creatinine Ratio 21.7 H (14-18) Glucose 130 H (74-106) mg/dL Calcium 8.1 L (8.5-10.1) mg/dL Magnesium 2.0 (1.8-2.4) mg/dl C-Reactive Protein 0.8 (<1.0) mg/dL Med Orders - Current: Current Medications Acetaminophen (Tylenol) 650 mg PO Q6H PRN PRN Reason: Fever Hydrocodone Bitart/Acetaminophen ([place] 325-10 Mg) 1 tab PO Q6H PRN PRN Reason: Pain Last Admin: 11/10/16 10:37 Dose: 1 tab Albuterol/Ipratropium (Duoneb 3.0-0.5 Mg/3 Ml) 3 ml NEB QIDRT [facility] Last Admin: 11/10/16 15:00 Dose: 3 ml Docusate Sodium (Colace) 100 mg PO BID PRN PRN Reason: Constipation Last Admin: 11/10/16 10:37 Dose: 100 mg Enoxaparin Sodium (Lovenox) 40 mg SUBCUT DAILY [facility] Last Admin: 11/10/16 09:05 Dose: 40 mg Fluoxetine HCl (Prozac) 20 mg PO DAILY [facility] Last Admin: 11/10/16 09:06 Dose: 20 mg Guaifenesin (Mucinex) 600 mg PO BID [facility] Last Admin: 11/10/16 09:06 Dose: 600 mg Hydroxychloroquine Sulfate (Plaquenil) 200 mg PO BID [facility] Last Admin: 11/10/16 09:06 Dose: 200 mg Norepinephrine Bitartrate 4 mg (/ Dextrose/Water) 250 mls @ 15 mls/hr IV TITRATE DANA; 4 MCG/MIN PRN Reason: Protocol Last Titration: 11/07/16 02:06 Dose: 0 mcg/min, 0 mls/hr Levofloxacin/Dextrose 750 mg/ (Premix) 150 mls @ 100 mls/hr IV Q24H [facility] Last Admin: 11/10/16 09:05 Dose: 100 mls/hr Vancomycin HCl 1 gm/ Sodium (Chloride) 250 mls @ 167 mls/hr IV Q8H [facility] Last Admin: 11/10/16 15:32 Dose: 167 mls/hr Methylprednisolone Sodium Succinate (Solu-Medrol) 40 mg IVPUSH Q12H [facility] Stop: 11/10/16 23:59 Last Admin: 11/10/16 09:06 Dose: 40 mg Montelukast Sodium (Singulair) 10 mg PO BEDTIME [facility] Last Admin: 11/09/16 21:58 Dose: 10 mg Ondansetron HCl (Zofran) 4 mg IVPUSH Q8H PRN PRN Reason: Nausea/Vomiting Actemra (Tocilizumab (800 Mg) Injection) 0 each .XX ASDIRECTED [facility] Prednisone (Prednisone) 40 mg PO DAILY [facility] Stop: 11/13/16 09:01 Prednisone (Prednisone) 30 mg PO DAILY [facility] Stop: 11/16/16 09:01 Prednisone (Prednisone) 20 mg PO DAILY [facility] Stop: 11/19/16 09:01 Prednisone (Prednisone) 10 mg PO DAILY [facility] Stop: 11/22/16 09:01 Quetiapine Fumarate (Seroquel) 12.5 mg PO BEDTIME [facility] Last Admin: 11/09/16 21:59 Dose: 12.5 mg Saccharomyces Boulardii (Florastor) 250 mg PO BID [facility] Fluticasone/Salmeterol (Advair Diskus 100-50) 1 puff INH BID [facility] Last Admin: 11/10/16 09:39 Dose: 1 puff Tolterodine Tartrate (Detrol) 2 mg PO DAILY [facility] Last Admin: 11/10/16 09:06 Dose: 2 mg Vancomycin HCl (Pharmacy To Dose - Vancomycin) 0 dose .XX ASDIRECTED PRN PRN Reason: RX DOSE Discontinued Medications Acetaminophen (Tylenol) 975 mg PO NOW ONE Stop: 11/06/16 11:41 Last Admin: 11/06/16 12:05 Dose: 975 mg Albuterol/Ipratropium (Duoneb 3.0-0.5 Mg/3 Ml) 3 ml NEB ONETIME ONE Stop: 11/06/16 11:45 Last Admin: 11/06/16 12:10 Dose: 3 ml Albuterol/Ipratropium (Duoneb 3.0-0.5 Mg/3 Ml) 3 ml NEB QID [facility] Sodium Chloride (Normal Saline) 1,000 mls @ 999 mls/hr IV ONETIME ONE Stop: 11/06/16 12:39 Last Admin: 11/06/16 12:05 Dose: 999 mls/hr Levofloxacin/Dextrose 750 mg/ (Premix) 150 mls @ 100 mls/hr IV ONETIME ONE Stop: 11/06/16 13:20 Last Admin: 11/06/16 12:05 Dose: 100 mls/hr Linezolid 600 mg/ Premix 300 mls @ 300 mls/hr IV ONETIME ONE Stop: 11/06/16 13:46 Last Admin: 11/06/16 13:07 Dose: 300 mls/hr Cefepime HCl 2 gm/ Premix 50 mls @ 100 mls/hr IV Q8H [facility] Last Admin: 11/09/16 01:24 Dose: 100 mls/hr Sodium Chloride (Normal Saline) 1,000 mls @ 999 mls/hr IV ASDIRECTED [facility] Last Infusion: 11/06/16 23:34 Dose: Infused Vancomycin HCl 1 gm/ Sodium (Chloride) 250 mls @ 250 mls/hr IV ONETIME ONE Stop: 11/06/16 21:59 Last Admin: 11/06/16 20:32 Dose: 250 mls/hr Magnesium Sulfate 2 gm/ Premix 50 mls @ 25 mls/hr IV ONETIME ONE Stop: 11/07/16 01:16 Last Admin: 11/07/16 00:04 Dose: 25 mls/hr Vancomycin HCl 1 gm/Vancomycin HCl 250 mg/ Sodium Chloride 250 mls @ 167 mls/ hr IV Q8H [facility] Last Admin: 11/10/16 00:27 Dose: 167 mls/hr Methylprednisolone Sodium Succinate (Solu-Medrol) 40 mg IVPUSH Q8H [facility] Methylprednisolone Sodium Succinate (Solu-Medrol) 40 mg IVPUSH Q12H [facility] Last Admin: 11/06/16 16:22 Dose: 40 mg Midazolam HCl (Versed 1 Mg/Ml) Confirm Administered Dose 2 mg .ROUTE .STK-MED ONE Stop: 11/06/16 14:22 Last Admin: 11/06/16 16:44 Dose: Not Given Midazolam HCl (Versed 1 Mg/Ml) 2 mg IVPUSH ONETIME ONE Stop: 11/06/16 14:28 Last Admin: 11/06/16 14:21 Dose: 2 mg Pneumococcal Polyvalent Vaccine (Pneumovax 23) 0.5 ml IM .ONCE ONE Stop: 11/09/16 11:07 Saccharomyces Boulardii (Florastor) 500 mg PO BID [facility] Last Admin: 11/10/16 09:05 Dose: 500 mg - Exam Quality Assessment: DVT prophylaxis General: alert, oriented, cooperative, no acute distress HEENT: Pupils equal, Pupils reactive, EOMI Neck: supple, trachea midline Lungs: Normal respiratory effort, Decreased breath sounds, Wheezing Cardiovascular: Regular Rate, Regular Rhythm Abdomen: bowel sounds present, soft, no tenderness, no distension (Female) Exam: Deferred Back Exam: normal inspection Extremities: normal pulses Skin: warm Neurological: no new focal deficit, normal gait, normal speech Psy/Mental Status: alert, normal affect, normal mood - Problem List & Annotations (1) Immunocompromised status associated with infection SNOMED Code(s): 106416626 Code(s): D84.9 - IMMUNODEFICIENCY, UNSPECIFIED; B99.9 - UNSPECIFIED INFECTIOUS DISEASE Status: Acute Current Visit: Yes (2) Pneumonia SNOMED Code(s): 431865880 Code(s): J18.9 - PNEUMONIA, UNSPECIFIED ORGANISM Status: Acute Current Visit: Yes Qualifiers: Pneumonia type: due to unspecified organism Laterality: right Lung location: lower lobe of lung Qualified Code(s): J18.1 - Lobar pneumonia, unspecified organism (3) Rheumatoid arthritis SNOMED Code(s): 42481658 Code(s): M06.9 - RHEUMATOID ARTHRITIS, UNSPECIFIED Status: Acute Current Visit: Yes Qualifiers: Rheumatoid arthritis location: multiple sites Rheumatoid factor presence: with rheumatoid factor Qualified Code(s): M05.79 - Rheumatoid arthritis with rheumatoid factor of multiple sites without organ or systems involvement (4) Septic shock SNOMED Code(s): 81792867 Code(s): A41.9 - SEPSIS, UNSPECIFIED ORGANISM; R65.21 - SEVERE SEPSIS WITH SEPTIC SHOCK Status: Acute Current Visit: Yes - Problem List Review Problem List Initiated/Reviewed/Updated: Yes - My Orders Last 24 Hours: My Active Orders 11/10/16 08:30 Vancomycin [Vancocin] 1 gm Sodium Chloride 0.9% [Normal Saline] 250 ml IV Q8H 11/10/16 10:21 Docusate Sodium [Colace] 100 mg PO BID PRN 11/10/16 13:36 Blood Culture x2 Reflex Set [OM.PC] Stat 11/10/16 14:49 Saccharomyces Boulardii [Florastor] 250 mg PO BID 11/11/16 00:00 VANCOMYCIN TROUGH [CHEM] Timed 11/11/16 06:00 CULTURE BLOOD [BC] Routine CULTURE BLOOD [BC] Routine 11/11/16 09:00 predniSONE 40 mg PO DAILY 11/14/16 09:00 predniSONE 30 mg PO DAILY 11/17/16 09:00 predniSONE 20 mg PO DAILY 11/20/16 09:00 predniSONE 10 mg PO DAILY - Plan Plan:: Impression: RLL PNA with RA on immune suppressants Strep pneumo Bacteremia, Strep pneumo REPEAT BCs 11/11/16. Former Tobacco, remote Pulmonary Fibrosis by history COPD Leukocytosis, 67.91---decreasing slowly CKD, stage III Wound Cx, MRSA MRSA positive nares screen Major Depression Query PTSD Chronic HTN Rheumatoid arthritis Plan: Changed to [place] tele yesterday Droplet/contact isolation IVF, 0.9 NS Levoquin/Vanco; Cefepime has been stopped today Solumedrol Nebs Clear Liquids Home meds DVT/GI prophylaxis LOS >96 hours with current treatment for PNA with bacteremia
[2016-11-10] MEDS: Montelukast 10 MG Tab PO SCH (20:10)
[2016-11-10] MEDS: QUEtiapine 25 MG Tab PO SCH (20:11)
[2016-11-10] MEDS: Acetaminophen 325 MG Tab PO PRN (21:40)
[2016-11-11] MEDS: Albuterol/Ipratropium 3.0-0.5 MG/3 ML Neb Soln NEB SCH ×4 (05:47→20:33)
[2016-11-11] MEDS ORDERED: Magnesium Hydroxide 400 MG/5 ML Susp 30 ML Cup PO PRN (06:51)
[2016-11-11] MEDS: Hydroxychloroquine 200 MG Tab PO SCH ×2 (08:34→20:28)
[2016-11-11] MEDS: FLUoxetine 20 MG Cap PO SCH (08:34)
[2016-11-11] MEDS: predniSONE 20 MG Tab PO SCH (08:34)
[2016-11-11] MEDS: Tolterodine 2 MG Tab PO SCH (08:34)
[2016-11-11] MEDS: guaiFENesin 600 MG Tab.ER PO SCH ×2 (08:34→20:28)
[2016-11-11] MEDS: Enoxaparin 40 MG/0.4 ML Syringe SUBCUT SCH (08:34)
[2016-11-11] MEDS: Levofloxacin/Dextrose 5%-Water 750 MG in Premix Bag 1 BAG IV SCH (08:35)
[2016-11-11] MEDS: Fluticasone/Salmeterol 100-50 MCG Inhalation Powder 14/Diskus INH SCH ×2 (09:16→20:34)
--- NOTE | 2016-11-11 09:40 | PCM.PN ---
- General Info Date of Service: 11/11/16 Subjective Update: Feels stronger, discussed the plan if care. Will recheck BCs today. Functional Status: Reports: tolerating diet, ambulating, urinating - Review of Systems General: Reports: No Symptoms HEENT: Reports: no symptoms Pulmonary: Reports: shortness of breath Cardiovascular: Reports: No Symptoms Gastrointestinal: Reports: No symptoms Musculoskeletal: Reports: no symptoms Skin: Reports: no symptoms Neurological: Reports: No Symptoms Psychiatric: Reports: no symptoms - Patient Data Vitals - most recent: Last Vital Signs Temp 36.8 C 11/11/16 08:33 Pulse 68 11/11/16 08:33 Resp 16 11/11/16 08:33 BP 123/75 11/11/16 08:33 Pulse Ox 98 11/11/16 09:17 Weight - most recent: 104.054 kg I&O - last 24 hours: Intake & Output 11/10/16 11/11/16 11/11/16 22:59 06:59 14:59 Intake Total 2590 750 Output Total 1200 1350 Balance 1390 -600 Lab Results last 24 hrs: Laboratory Results - last 24 hr 11/11/16 11/11/16 Range/Units 00:18 08:30 Vancomycin Trough 40.5 H 15.8 (10.0-20.0) Med Orders - Current: Current Medications Acetaminophen (Tylenol) 650 mg PO Q6H PRN PRN Reason: Fever Last Admin: 11/10/16 21:40 Dose: 650 mg Hydrocodone Bitart/Acetaminophen ([place] 325-10 Mg) 1 tab PO Q6H PRN PRN Reason: Pain Last Admin: 11/10/16 21:40 Dose: 1 tab Albuterol/Ipratropium (Duoneb 3.0-0.5 Mg/3 Ml) 3 ml NEB QIDRT [facility] Last Admin: 11/11/16 09:16 Dose: 3 ml Docusate Sodium (Colace) 100 mg PO BID PRN PRN Reason: Constipation Last Admin: 11/10/16 10:37 Dose: 100 mg Enoxaparin Sodium (Lovenox) 40 mg SUBCUT DAILY [facility] Last Admin: 11/11/16 08:34 Dose: 40 mg Fluoxetine HCl (Prozac) 20 mg PO DAILY [facility] Last Admin: 11/11/16 08:34 Dose: 20 mg Guaifenesin (Mucinex) 600 mg PO BID [facility] Last Admin: 11/11/16 08:34 Dose: 600 mg Hydroxychloroquine Sulfate (Plaquenil) 200 mg PO BID [facility] Last Admin: 11/11/16 08:34 Dose: 200 mg Norepinephrine Bitartrate 4 mg (/ Dextrose/Water) 250 mls @ 15 mls/hr IV TITRATE DANA; 4 MCG/MIN PRN Reason: Protocol Last Titration: 11/07/16 02:06 Dose: 0 mcg/min, 0 mls/hr Levofloxacin/Dextrose 750 mg/ (Premix) 150 mls @ 100 mls/hr IV Q24H [facility] Last Admin: 11/11/16 08:35 Dose: 100 mls/hr Vancomycin HCl 1 gm/ Sodium (Chloride) 250 mls @ 167 mls/hr IV Q8H [facility] Magnesium Hydroxide (Milk Of Magnesia) 30 ml PO BID PRN PRN Reason: Constipation Last Admin: 11/11/16 08:34 Dose: 30 ml Montelukast Sodium (Singulair) 10 mg PO BEDTIME [facility] Last Admin: 11/10/16 20:10 Dose: 10 mg Ondansetron HCl (Zofran) 4 mg IVPUSH Q8H PRN PRN Reason: Nausea/Vomiting Actemra (Tocilizumab (800 Mg) Injection) 0 each .XX ASDIRECTED [facility] Prednisone (Prednisone) 40 mg PO DAILY [facility] Stop: 11/13/16 09:01 Last Admin: 11/11/16 08:34 Dose: 40 mg Prednisone (Prednisone) 30 mg PO DAILY [facility] Stop: 11/16/16 09:01 Prednisone (Prednisone) 20 mg PO DAILY [facility] Stop: 11/19/16 09:01 Prednisone (Prednisone) 10 mg PO DAILY [facility] Stop: 11/22/16 09:01 Quetiapine Fumarate (Seroquel) 12.5 mg PO BEDTIME [facility] Last Admin: 11/10/16 20:11 Dose: 12.5 mg Saccharomyces Boulardii (Florastor) 250 mg PO BID [facility] Last Admin: 11/10/16 20:10 Dose: 250 mg Fluticasone/Salmeterol (Advair Diskus 100-50) 1 puff INH BID [facility] Last Admin: 11/11/16 09:16 Dose: 1 puff Tolterodine Tartrate (Detrol) 2 mg PO DAILY [facility] Last Admin: 11/11/16 08:34 Dose: 2 mg Vancomycin HCl (Pharmacy To Dose - Vancomycin) 0 dose .XX ASDIRECTED PRN PRN Reason: RX DOSE Discontinued Medications Acetaminophen (Tylenol) 975 mg PO NOW ONE Stop: 11/06/16 11:41 Last Admin: 11/06/16 12:05 Dose: 975 mg Albuterol/Ipratropium (Duoneb 3.0-0.5 Mg/3 Ml) 3 ml NEB ONETIME ONE Stop: 11/06/16 11:45 Last Admin: 11/06/16 12:10 Dose: 3 ml Albuterol/Ipratropium (Duoneb 3.0-0.5 Mg/3 Ml) 3 ml NEB QID [facility] Sodium Chloride (Normal Saline) 1,000 mls @ 999 mls/hr IV ONETIME ONE Stop: 11/06/16 12:39 Last Admin: 11/06/16 12:05 Dose: 999 mls/hr Levofloxacin/Dextrose 750 mg/ (Premix) 150 mls @ 100 mls/hr IV ONETIME ONE Stop: 11/06/16 13:20 Last Admin: 11/06/16 12:05 Dose: 100 mls/hr Linezolid 600 mg/ Premix 300 mls @ 300 mls/hr IV ONETIME ONE Stop: 11/06/16 13:46 Last Admin: 11/06/16 13:07 Dose: 300 mls/hr Cefepime HCl 2 gm/ Premix 50 mls @ 100 mls/hr IV Q8H [facility] Last Admin: 11/09/16 01:24 Dose: 100 mls/hr Sodium Chloride (Normal Saline) 1,000 mls @ 999 mls/hr IV ASDIRECTED [facility] Last Infusion: 11/06/16 23:34 Dose: Infused Vancomycin HCl 1 gm/ Sodium (Chloride) 250 mls @ 250 mls/hr IV ONETIME ONE Stop: 11/06/16 21:59 Last Admin: 11/06/16 20:32 Dose: 250 mls/hr Magnesium Sulfate 2 gm/ Premix 50 mls @ 25 mls/hr IV ONETIME ONE Stop: 11/07/16 01:16 Last Admin: 11/07/16 00:04 Dose: 25 mls/hr Vancomycin HCl 1 gm/Vancomycin HCl 250 mg/ Sodium Chloride 250 mls @ 167 mls/ hr IV Q8H [facility] Last Admin: 11/10/16 00:27 Dose: 167 mls/hr Vancomycin HCl 1 gm/ Sodium (Chloride) 250 mls @ 167 mls/hr IV Q8H [facility] Last Admin: 11/11/16 00:09 Dose: Not Given Methylprednisolone Sodium Succinate (Solu-Medrol) 40 mg IVPUSH Q8H [facility] Methylprednisolone Sodium Succinate (Solu-Medrol) 40 mg IVPUSH Q12H [facility] Last Admin: 11/06/16 16:22 Dose: 40 mg Methylprednisolone Sodium Succinate (Solu-Medrol) 40 mg IVPUSH Q12H [facility] Stop: 11/10/16 23:59 Last Admin: 11/10/16 20:12 Dose: 40 mg Midazolam HCl (Versed 1 Mg/Ml) Confirm Administered Dose 2 mg .ROUTE .STK-MED ONE Stop: 11/06/16 14:22 Last Admin: 11/06/16 16:44 Dose: Not Given Midazolam HCl (Versed 1 Mg/Ml) 2 mg IVPUSH ONETIME ONE Stop: 11/06/16 14:28 Last Admin: 11/06/16 14:21 Dose: 2 mg Pneumococcal Polyvalent Vaccine (Pneumovax 23) 0.5 ml IM .ONCE ONE Stop: 11/09/16 11:07 Saccharomyces Boulardii (Florastor) 500 mg PO BID [facility] Last Admin: 11/10/16 09:05 Dose: 500 mg - Exam Quality Assessment: DVT prophylaxis General: alert, oriented, cooperative HEENT: Pupils equal, Pupils reactive, EOMI, Mucous membr. moist/pink Neck: supple, trachea midline, no JVD Lungs: Normal respiratory effort Cardiovascular: Regular Rate, Regular Rhythm Abdomen: bowel sounds present (Female) Exam: Deferred Back Exam: normal inspection Extremities: normal pulses Skin: warm Neurological: no new focal deficit, normal gait, normal speech Psy/Mental Status: alert, normal affect, normal mood - Problem List & Annotations (1) Immunocompromised status associated with infection SNOMED Code(s): 263898474 Code(s): D84.9 - IMMUNODEFICIENCY, UNSPECIFIED; B99.9 - UNSPECIFIED INFECTIOUS DISEASE Status: Acute Current Visit: Yes (2) Pneumonia SNOMED Code(s): 102577445 Code(s): J18.9 - PNEUMONIA, UNSPECIFIED ORGANISM Status: Acute Current Visit: Yes Qualifiers: Pneumonia type: due to unspecified organism Laterality: right Lung location: lower lobe of lung Qualified Code(s): J18.1 - Lobar pneumonia, unspecified organism (3) Rheumatoid arthritis SNOMED Code(s): 66536450 Code(s): M06.9 - RHEUMATOID ARTHRITIS, UNSPECIFIED Status: Acute Current Visit: Yes Qualifiers: Rheumatoid arthritis location: multiple sites Rheumatoid factor presence: with rheumatoid factor Qualified Code(s): M05.79 - Rheumatoid arthritis with rheumatoid factor of multiple sites without organ or systems involvement (4) Septic shock SNOMED Code(s): 28420489 Code(s): A41.9 - SEPSIS, UNSPECIFIED ORGANISM; R65.21 - SEVERE SEPSIS WITH SEPTIC SHOCK Status: Acute Current Visit: Yes - Problem List Review Problem List Initiated/Reviewed/Updated: Yes - My Orders Last 24 Hours: My Active Orders 11/10/16 10:21 Docusate Sodium [Colace] 100 mg PO BID PRN 11/10/16 13:36 Blood Culture x2 Reflex Set [OM.PC] Stat 11/10/16 14:49 Saccharomyces Boulardii [Florastor] 250 mg PO BID 11/11/16 05:34 CULTURE BLOOD [BC] Routine 11/11/16 05:44 CULTURE BLOOD [BC] Routine 11/11/16 09:00 predniSONE 40 mg PO DAILY 11/11/16 10:00 Vancomycin [Vancocin] 1 gm Sodium Chloride 0.9% [Normal Saline] 250 ml IV Q8H 11/14/16 09:00 predniSONE 30 mg PO DAILY 11/17/16 09:00 predniSONE 20 mg PO DAILY 11/20/16 09:00 predniSONE 10 mg PO DAILY - Plan Plan:: Impression: RLL PNA with RA on immune suppressants Strep pneumo Bacteremia, Strep pneumo REPEAT BCs 11/11/16. Former Tobacco, remote Pulmonary Fibrosis by history COPD Leukocytosis, 67.91---decreasing slowly CKD, stage III Wound Cx, MRSA; has been on Vanco will change to [place] today. MRSA positive nares screen Major Depression Query PTSD Chronic HTN Rheumatoid arthritis Plan: Changed to [place] tele yesterday Droplet/contact isolation IVF, 0.9 NS Levoquin/Vanco; Cefepime has been stopped today Solumedrol Nebs Clear Liquids Home meds DVT/GI prophylaxis LOS >96 hours with current treatment for PNA with bacteremia
[2016-11-11] MEDS: Saccharomyces Boulardii (Probiotic) 250 MG Cap PO SCH ×2 (11:07→20:27)
[2016-11-11] MEDS ORDERED: Clindamycin Phosphate 900 MG in Sodium Chloride 0.9% 100 ML IV SCH (17:00)
[2016-11-11] MEDS: Clindamycin Phosphate 900 MG in Sodium Chloride 0.9% 100 ML IV SCH (17:28)
[2016-11-11] MEDS: Montelukast 10 MG Tab PO SCH (20:27)
[2016-11-11] MEDS: Acetaminophen/HYDROcodone 325-10 MG Tab PO PRN (20:27)
[2016-11-11] MEDS: Acetaminophen 325 MG Tab PO PRN (20:27)
[2016-11-11] MEDS: QUEtiapine 25 MG Tab PO SCH (20:28)
[2016-11-12] MEDS: Clindamycin Phosphate 900 MG in Sodium Chloride 0.9% 100 ML IV SCH ×3 (02:04→18:17)
[2016-11-12] MEDS: Albuterol/Ipratropium 3.0-0.5 MG/3 ML Neb Soln NEB SCH ×4 (05:52→21:53)
[2016-11-12] MEDS: Fluticasone/Salmeterol 100-50 MCG Inhalation Powder 14/Diskus INH SCH ×2 (09:00→21:53)
[2016-11-12] MEDS: guaiFENesin 600 MG Tab.ER PO SCH ×2 (09:03→20:38)
[2016-11-12] MEDS: Tolterodine 2 MG Tab PO SCH (09:03)
[2016-11-12] MEDS: Enoxaparin 40 MG/0.4 ML Syringe SUBCUT SCH (09:03)
[2016-11-12] MEDS: Saccharomyces Boulardii (Probiotic) 250 MG Cap PO SCH ×2 (09:03→20:38)
[2016-11-12] MEDS: FLUoxetine 20 MG Cap PO SCH (09:04)
[2016-11-12] MEDS: Levofloxacin/Dextrose 5%-Water 750 MG in Premix Bag 1 BAG IV SCH (09:04)
[2016-11-12] MEDS: predniSONE 20 MG Tab PO SCH (09:04)
[2016-11-12] MEDS: Hydroxychloroquine 200 MG Tab PO SCH ×2 (09:04→20:38)
[2016-11-12] MEDS: Acetaminophen/HYDROcodone 325-10 MG Tab PO PRN ×2 (10:52→20:39)
--- NOTE | 2016-11-12 13:34 | PCM.PN ---
- General Info Date of Service: 11/12/16 Functional Status: Reports: tolerating diet, ambulating, urinating - Review of Systems General: Reports: No Symptoms HEENT: Reports: no symptoms Pulmonary: Reports: no symptoms Cardiovascular: Reports: No Symptoms Gastrointestinal: Reports: No symptoms Genitourinary: Reports: no symptoms Musculoskeletal: Reports: no symptoms Skin: Reports: no symptoms Neurological: Reports: No Symptoms Psychiatric: Reports: no symptoms - Patient Data Vitals - most recent: Last Vital Signs Temp 36.6 C 11/12/16 08:10 Pulse 72 11/12/16 08:10 Resp 18 11/12/16 08:10 BP 105/62 11/12/16 08:10 Pulse Ox 97 11/12/16 09:00 Weight - most recent: 103.555 kg I&O - last 24 hours: Intake & Output 11/11/16 11/12/16 11/12/16 22:59 06:59 14:59 Intake Total 2000 900 360 Output Total 1100 Balance 900 900 360 Lab Results last 24 hrs: Laboratory Results - last 24 hr 11/12/16 11/12/16 Range/Units 07:19 07:19 WBC 17.67 H (3.98-10.04) K/mm3 RBC 4.38 (3.98-5.22) M/mm3 Hgb 11.5 (11.2-15.7) gm/L Hct 35.6 (34.1-44.9) % MCV 81.3 (79.4-94.8) fl MCH 26.3 (25.6-32.2) pg MCHC 32.3 (32.2-35.5) g/dl RDW Std Deviation 46.0 (36.4-46.3) fL Plt Count 136 L (182-369) K/mm3 MPV 10.7 (9.4-12.3) fl Neut % (Auto) 65.3 (34.0-71.1) % Lymph % (Auto) 21.4 (19.3-51.7) % [facility] % (Auto) 5.4 (4.7-12.5) % Eos % (Auto) 1.6 (0.7-5.8) Baso % (Auto) 0.3 (0.1-1.2) % Neut # (Auto) 11.55 H (1.56-6.13) K/mm3 Lymph # (Auto) 3.78 H (1.18-3.74) K/mm3 [facility] # (Auto) 0.95 H (0.24-0.36) K/mm3 Eos # (Auto) 0.28 (0.04-0.36) K/mm3 Baso # (Auto) 0.05 (0.01-0.08) K/mm3 Manual Slide Review Abnormal smear Sodium 143 (136-145) mEq/L Potassium 3.9 (3.5-5.1) mEq/L Chloride 109 H (98-107) mEq/L Carbon Dioxide 26 (21-32) mEq/L Anion Gap 11.9 (5-15) BUN 18 (7-18) mg/dL Creatinine 0.8 (0.55-1.02) mg/dL Est Cr Clr Drug Dosing 78.27 mL/min Estimated GFR (MDRD) > 60 (>60) mL/min BUN/Creatinine Ratio 22.5 H (14-18) Glucose 82 (74-106) mg/dL Calcium 7.8 L (8.5-10.1) mg/dL Magnesium 2.0 (1.8-2.4) mg/dl [place] Results last 24 hrs: Microbiology 11/11/16 05:44 Aerobic Blood Culture - Preliminary Blood - Venous - Lab Draw NO GROWTH AFTER 1 DAY Anaerobic Blood Culture - Preliminary NO GROWTH AFTER 1 DAY 11/11/16 05:34 Aerobic Blood Culture - Preliminary Blood - Venous NO GROWTH AFTER 1 DAY Anaerobic Blood Culture - Preliminary NO GROWTH AFTER 1 DAY Med Orders - Current: Current Medications Acetaminophen (Tylenol) 650 mg PO Q6H PRN PRN Reason: Fever Last Admin: 11/11/16 20:27 Dose: 650 mg Hydrocodone Bitart/Acetaminophen ([place] 325-10 Mg) 1 tab PO Q6H PRN PRN Reason: Pain Last Admin: 11/12/16 10:52 Dose: 1 tab Albuterol/Ipratropium (Duoneb 3.0-0.5 Mg/3 Ml) 3 ml NEB QIDRT DANA Last Admin: 11/12/16 09:00 Dose: 3 ml Docusate Sodium (Colace) 100 mg PO BID PRN PRN Reason: Constipation Last Admin: 11/10/16 10:37 Dose: 100 mg Enoxaparin Sodium (Lovenox) 40 mg SUBCUT DAILY [facility] Last Admin: 11/12/16 09:03 Dose: 40 mg Fluoxetine HCl (Prozac) 20 mg PO DAILY [facility] Last Admin: 11/12/16 09:04 Dose: 20 mg Guaifenesin (Mucinex) 600 mg PO BID [facility] Last Admin: 11/12/16 09:03 Dose: 600 mg Hydroxychloroquine Sulfate (Plaquenil) 200 mg PO BID [facility] Last Admin: 11/12/16 09:04 Dose: 200 mg Norepinephrine Bitartrate 4 mg (/ Dextrose/Water) 250 mls @ 15 mls/hr IV TITRATE DANA; 4 MCG/MIN PRN Reason: Protocol Last Titration: 11/07/16 02:06 Dose: 0 mcg/min, 0 mls/hr Clindamycin Phosphate 900 mg/ (Sodium Chloride) 106 mls @ 100 mls/hr IV Q8H [facility] Last Admin: 11/12/16 10:48 Dose: 100 mls/hr Magnesium Hydroxide (Milk Of Magnesia) 30 ml PO BID PRN PRN Reason: Constipation Last Admin: 11/11/16 08:34 Dose: 30 ml Montelukast Sodium (Singulair) 10 mg PO BEDTIME [facility] Last Admin: 11/11/16 20:27 Dose: 10 mg Ondansetron HCl (Zofran) 4 mg IVPUSH Q8H PRN PRN Reason: Nausea/Vomiting Actemra (Tocilizumab (800 Mg) Injection) 0 each .XX ASDIRECTED [facility] Prednisone (Prednisone) 40 mg PO DAILY [facility] Stop: 11/13/16 09:01 Last Admin: 11/12/16 09:04 Dose: 40 mg Prednisone (Prednisone) 30 mg PO DAILY [facility] Stop: 11/16/16 09:01 Prednisone (Prednisone) 20 mg PO DAILY [facility] Stop: 11/19/16 09:01 Prednisone (Prednisone) 10 mg PO DAILY [facility] Stop: 11/22/16 09:01 Quetiapine Fumarate (Seroquel) 12.5 mg PO BEDTIME [facility] Last Admin: 11/11/16 20:28 Dose: 12.5 mg Saccharomyces Boulardii (Florastor) 250 mg PO BID [facility] Last Admin: 11/12/16 09:03 Dose: 250 mg Fluticasone/Salmeterol (Advair Diskus 100-50) 1 puff INH BID [facility] Last Admin: 11/12/16 09:00 Dose: 1 puff Tolterodine Tartrate (Detrol) 2 mg PO DAILY [facility] Last Admin: 11/12/16 09:03 Dose: 2 mg Discontinued Medications Acetaminophen (Tylenol) 975 mg PO NOW ONE Stop: 11/06/16 11:41 Last Admin: 11/06/16 12:05 Dose: 975 mg Albuterol/Ipratropium (Duoneb 3.0-0.5 Mg/3 Ml) 3 ml NEB ONETIME ONE Stop: 11/06/16 11:45 Last Admin: 11/06/16 12:10 Dose: 3 ml Albuterol/Ipratropium (Duoneb 3.0-0.5 Mg/3 Ml) 3 ml NEB QID [facility] Sodium Chloride (Normal Saline) 1,000 mls @ 999 mls/hr IV ONETIME ONE Stop: 11/06/16 12:39 Last Admin: 11/06/16 12:05 Dose: 999 mls/hr Levofloxacin/Dextrose 750 mg/ (Premix) 150 mls @ 100 mls/hr IV ONETIME ONE Stop: 11/06/16 13:20 Last Admin: 11/06/16 12:05 Dose: 100 mls/hr Linezolid 600 mg/ Premix 300 mls @ 300 mls/hr IV ONETIME ONE Stop: 11/06/16 13:46 Last Admin: 11/06/16 13:07 Dose: 300 mls/hr Cefepime HCl 2 gm/ Premix 50 mls @ 100 mls/hr IV Q8H [facility] Last Admin: 11/09/16 01:24 Dose: 100 mls/hr Levofloxacin/Dextrose 750 mg/ (Premix) 150 mls @ 100 mls/hr IV Q24H [facility] Last Admin: 11/12/16 09:04 Dose: 100 mls/hr Sodium Chloride (Normal Saline) 1,000 mls @ 999 mls/hr IV ASDIRECTED [facility] Last Infusion: 11/06/16 23:34 Dose: Infused Vancomycin HCl 1 gm/ Sodium (Chloride) 250 mls @ 250 mls/hr IV ONETIME ONE Stop: 11/06/16 21:59 Last Admin: 11/06/16 20:32 Dose: 250 mls/hr Magnesium Sulfate 2 gm/ Premix 50 mls @ 25 mls/hr IV ONETIME ONE Stop: 11/07/16 01:16 Last Admin: 11/07/16 00:04 Dose: 25 mls/hr Vancomycin HCl 1 gm/Vancomycin HCl 250 mg/ Sodium Chloride 250 mls @ 167 mls/ hr IV Q8H [facility] Last Admin: 11/10/16 00:27 Dose: 167 mls/hr Vancomycin HCl 1 gm/ Sodium (Chloride) 250 mls @ 167 mls/hr IV Q8H [facility] Last Admin: 11/11/16 00:09 Dose: Not Given Vancomycin HCl 1 gm/ Sodium (Chloride) 250 mls @ 167 mls/hr IV Q8H [facility] Last Admin: 11/11/16 10:01 Dose: 167 mls/hr Clindamycin Phosphate 900 mg/ (Sodium Chloride) 106 mls @ 100 mls/hr IV Q6H [facility] Last Admin: 11/11/16 17:41 Dose: Not Given Methylprednisolone Sodium Succinate (Solu-Medrol) 40 mg IVPUSH Q8H [facility] Methylprednisolone Sodium Succinate (Solu-Medrol) 40 mg IVPUSH Q12H [facility] Last Admin: 11/06/16 16:22 Dose: 40 mg Methylprednisolone Sodium Succinate (Solu-Medrol) 40 mg IVPUSH Q12H [facility] Stop: 11/10/16 23:59 Last Admin: 11/10/16 20:12 Dose: 40 mg Midazolam HCl (Versed 1 Mg/Ml) Confirm Administered Dose 2 mg .ROUTE .STK-MED ONE Stop: 11/06/16 14:22 Last Admin: 11/06/16 16:44 Dose: Not Given Midazolam HCl (Versed 1 Mg/Ml) 2 mg IVPUSH ONETIME ONE Stop: 11/06/16 14:28 Last Admin: 11/06/16 14:21 Dose: 2 mg Pneumococcal Polyvalent Vaccine (Pneumovax 23) 0.5 ml IM .ONCE ONE Stop: 11/09/16 11:07 Saccharomyces Boulardii (Florastor) 500 mg PO BID [facility] Last Admin: 11/10/16 09:05 Dose: 500 mg Vancomycin HCl (Pharmacy To Dose - Vancomycin) 0 dose .XX ASDIRECTED PRN PRN Reason: RX DOSE - Exam Quality Assessment: central line/PICC, DVT prophylaxis General: alert, oriented, cooperative, no acute distress HEENT: Pupils equal, Pupils reactive, EOMI Neck: supple, trachea midline, no JVD Lungs: Normal respiratory effort Cardiovascular: Regular Rate, Regular Rhythm Abdomen: bowel sounds present, soft, no tenderness, no distension (Female) Exam: Deferred Back Exam: normal inspection Extremities: normal pulses Skin: warm Neurological: no new focal deficit, normal speech Psy/Mental Status: alert, normal affect, normal mood - Problem List & Annotations (1) Immunocompromised status associated with infection SNOMED Code(s): 626215470 Code(s): D84.9 - IMMUNODEFICIENCY, UNSPECIFIED; B99.9 - UNSPECIFIED INFECTIOUS DISEASE Status: Acute Current Visit: Yes (2) Pneumonia SNOMED Code(s): 694101566 Code(s): J18.9 - PNEUMONIA, UNSPECIFIED ORGANISM Status: Acute Current Visit: Yes Qualifiers: Pneumonia type: due to unspecified organism Laterality: right Lung location: lower lobe of lung Qualified Code(s): J18.1 - Lobar pneumonia, unspecified organism (3) Rheumatoid arthritis SNOMED Code(s): 12917640 Code(s): M06.9 - RHEUMATOID ARTHRITIS, UNSPECIFIED Status: Acute Current Visit: Yes Qualifiers: Rheumatoid arthritis location: multiple sites Rheumatoid factor presence: with rheumatoid factor Qualified Code(s): M05.79 - Rheumatoid arthritis with rheumatoid factor of multiple sites without organ or systems involvement (4) Septic shock SNOMED Code(s): 09495311 Code(s): A41.9 - SEPSIS, UNSPECIFIED ORGANISM; R65.21 - SEVERE SEPSIS WITH SEPTIC SHOCK Status: Acute Current Visit: Yes - Problem List Review Problem List Initiated/Reviewed/Updated: Yes - My Orders Last 24 Hours: My Active Orders 11/11/16 18:00 Clindamycin Phosphate [Cleocin] 900 mg Sodium Chloride 0.9% [Normal Saline] 100 ml IV Q8H 11/14/16 09:00 predniSONE 30 mg PO DAILY 11/17/16 09:00 predniSONE 20 mg PO DAILY 11/20/16 09:00 predniSONE 10 mg PO DAILY - Plan Plan:: Impression: RLL PNA with RA on immune suppressants Strep pneumo Bacteremia, Strep pneumo REPEAT BCs 11/11/16, negative 24 hours. Former Tobacco, remote Pulmonary Fibrosis by history COPD Leukocytosis, 67.91---decreasing slowly CKD, stage III Wound Cx, MRSA; antibiotic therapy: Clindamycin IV 900 mg q 8 hours, change to oral dose 11/13/16. DC CENTRAL LINE 11/13/16. MRSA positive nares screen Major Depression Query PTSD Chronic HTN Rheumatoid arthritis Plan: Changed to [place] tele yesterday Droplet/contact isolation IVF, 0.9 NS Levoquin/Vanco; Cefepime has been stopped today Solumedrol Nebs Clear Liquids Home meds DVT/GI prophylaxis LOS >96 hours with current treatment for PNA with bacteremia
[2016-11-12] MEDS: QUEtiapine 25 MG Tab PO SCH (20:38)
[2016-11-12] MEDS: Montelukast 10 MG Tab PO SCH (20:39)
[2016-11-13] MEDS: Clindamycin Phosphate 900 MG in Sodium Chloride 0.9% 100 ML IV SCH ×2 (02:58→10:37)
[2016-11-13] MEDS: Albuterol/Ipratropium 3.0-0.5 MG/3 ML Neb Soln NEB SCH ×4 (06:27→21:20)
[2016-11-13] MEDS: Enoxaparin 40 MG/0.4 ML Syringe SUBCUT SCH (09:46)
[2016-11-13] MEDS: Saccharomyces Boulardii (Probiotic) 250 MG Cap PO SCH ×2 (09:46→21:04)
[2016-11-13] MEDS: Hydroxychloroquine 200 MG Tab PO SCH ×2 (09:48→21:04)
[2016-11-13] MEDS: guaiFENesin 600 MG Tab.ER PO SCH ×2 (09:48→21:04)
[2016-11-13] MEDS: Tolterodine 2 MG Tab PO SCH (09:48)
[2016-11-13] MEDS: predniSONE 20 MG Tab PO SCH (09:49)
[2016-11-13] MEDS: FLUoxetine 20 MG Cap PO SCH (09:50)
[2016-11-13] MEDS: Fluticasone/Salmeterol 100-50 MCG Inhalation Powder 14/Diskus INH SCH ×2 (09:59→21:25)
--- NOTE | 2016-11-13 10:17 | PCM.PN ---
- General Info Date of Service: 11/13/16 Functional Status: Reports: tolerating diet, ambulating, urinating - Review of Systems General: Reports: No Symptoms HEENT: Reports: no symptoms Pulmonary: Reports: no symptoms Cardiovascular: Reports: No Symptoms Gastrointestinal: Reports: No symptoms Genitourinary: Reports: no symptoms Musculoskeletal: Reports: no symptoms Skin: Reports: no symptoms Neurological: Reports: No Symptoms Psychiatric: Reports: no symptoms - Patient Data Vitals - most recent: Last Vital Signs Temp 36.8 C 11/13/16 08:35 Pulse 78 11/13/16 08:37 Resp 18 11/13/16 08:35 BP 100/58 L 11/13/16 08:37 Pulse Ox 97 11/13/16 09:59 Weight - most recent: 103.011 kg I&O - last 24 hours: Intake & Output 11/12/16 11/13/16 11/13/16 22:59 06:59 14:59 Intake Total 2260 540 Balance 2260 540 [place] Results last 24 hrs: Microbiology 11/11/16 05:44 Aerobic Blood Culture - Preliminary Blood - Venous - Lab Draw NO GROWTH AFTER 2 DAYS Anaerobic Blood Culture - Preliminary NO GROWTH AFTER 2 DAYS 11/11/16 05:34 Aerobic Blood Culture - Preliminary Blood - Venous NO GROWTH AFTER 2 DAYS Anaerobic Blood Culture - Preliminary NO GROWTH AFTER 2 DAYS Med Orders - Current: Current Medications Acetaminophen (Tylenol) 650 mg PO Q6H PRN PRN Reason: Fever Last Admin: 11/11/16 20:27 Dose: 650 mg Hydrocodone Bitart/Acetaminophen ([place] 325-10 Mg) 1 tab PO Q6H PRN PRN Reason: Pain Last Admin: 11/12/16 20:39 Dose: 1 tab Albuterol/Ipratropium (Duoneb 3.0-0.5 Mg/3 Ml) 3 ml NEB QIDRT [facility] Last Admin: 11/13/16 09:59 Dose: 3 ml Docusate Sodium (Colace) 100 mg PO BID PRN PRN Reason: Constipation Last Admin: 11/10/16 10:37 Dose: 100 mg Enoxaparin Sodium (Lovenox) 40 mg SUBCUT DAILY [facility] Last Admin: 11/13/16 09:46 Dose: 40 mg Fluoxetine HCl (Prozac) 20 mg PO DAILY [facility] Last Admin: 11/13/16 09:50 Dose: 20 mg Guaifenesin (Mucinex) 600 mg PO BID [facility] Last Admin: 11/13/16 09:48 Dose: 600 mg Hydroxychloroquine Sulfate (Plaquenil) 200 mg PO BID [facility] Last Admin: 11/13/16 09:48 Dose: 200 mg Clindamycin Phosphate 900 mg/ (Sodium Chloride) 106 mls @ 100 mls/hr IV Q8H [facility] Last Admin: 11/13/16 02:58 Dose: 100 mls/hr Magnesium Hydroxide (Milk Of Magnesia) 30 ml PO BID PRN PRN Reason: Constipation Last Admin: 11/11/16 08:34 Dose: 30 ml Montelukast Sodium (Singulair) 10 mg PO BEDTIME [facility] Last Admin: 11/12/16 20:39 Dose: 10 mg Ondansetron HCl (Zofran) 4 mg IVPUSH Q8H PRN PRN Reason: Nausea/Vomiting Actemra (Tocilizumab (800 Mg) Injection) 0 each .XX ASDIRECTED [facility] Prednisone (Prednisone) 30 mg PO DAILY [facility] Stop: 11/16/16 09:01 Prednisone (Prednisone) 20 mg PO DAILY [facility] Stop: 11/19/16 09:01 Prednisone (Prednisone) 10 mg PO DAILY [facility] Stop: 11/22/16 09:01 Quetiapine Fumarate (Seroquel) 12.5 mg PO BEDTIME [facility] Last Admin: 11/12/16 20:38 Dose: 12.5 mg Saccharomyces Boulardii (Florastor) 250 mg PO BID [facility] Last Admin: 11/13/16 09:46 Dose: 250 mg Fluticasone/Salmeterol (Advair Diskus 100-50) 1 puff INH BID [facility] Last Admin: 11/13/16 09:59 Dose: 1 puff Tolterodine Tartrate (Detrol) 2 mg PO DAILY [facility] Last Admin: 11/13/16 09:48 Dose: 2 mg Discontinued Medications Acetaminophen (Tylenol) 975 mg PO NOW ONE Stop: 11/06/16 11:41 Last Admin: 11/06/16 12:05 Dose: 975 mg Albuterol/Ipratropium (Duoneb 3.0-0.5 Mg/3 Ml) 3 ml NEB ONETIME ONE Stop: 11/06/16 11:45 Last Admin: 11/06/16 12:10 Dose: 3 ml Albuterol/Ipratropium (Duoneb 3.0-0.5 Mg/3 Ml) 3 ml NEB QID DANA Sodium Chloride (Normal Saline) 1,000 mls @ 999 mls/hr IV ONETIME ONE Stop: 11/06/16 12:39 Last Admin: 11/06/16 12:05 Dose: 999 mls/hr Levofloxacin/Dextrose 750 mg/ (Premix) 150 mls @ 100 mls/hr IV ONETIME ONE Stop: 11/06/16 13:20 Last Admin: 11/06/16 12:05 Dose: 100 mls/hr Linezolid 600 mg/ Premix 300 mls @ 300 mls/hr IV ONETIME ONE Stop: 11/06/16 13:46 Last Admin: 11/06/16 13:07 Dose: 300 mls/hr Norepinephrine Bitartrate 4 mg (/ Dextrose/Water) 250 mls @ 15 mls/hr IV TITRATE DANA; 4 MCG/MIN PRN Reason: Protocol Last Titration: 11/07/16 02:06 Dose: 0 mcg/min, 0 mls/hr Cefepime HCl 2 gm/ Premix 50 mls @ 100 mls/hr IV Q8H [facility] Last Admin: 11/09/16 01:24 Dose: 100 mls/hr Levofloxacin/Dextrose 750 mg/ (Premix) 150 mls @ 100 mls/hr IV Q24H [facility] Last Admin: 11/12/16 09:04 Dose: 100 mls/hr Sodium Chloride (Normal Saline) 1,000 mls @ 999 mls/hr IV ASDIRECTED [facility] Last Infusion: 11/06/16 23:34 Dose: Infused Vancomycin HCl 1 gm/ Sodium (Chloride) 250 mls @ 250 mls/hr IV ONETIME ONE Stop: 11/06/16 21:59 Last Admin: 11/06/16 20:32 Dose: 250 mls/hr Magnesium Sulfate 2 gm/ Premix 50 mls @ 25 mls/hr IV ONETIME ONE Stop: 11/07/16 01:16 Last Admin: 11/07/16 00:04 Dose: 25 mls/hr Vancomycin HCl 1 gm/Vancomycin HCl 250 mg/ Sodium Chloride 250 mls @ 167 mls/ hr IV Q8H [facility] Last Admin: 11/10/16 00:27 Dose: 167 mls/hr Vancomycin HCl 1 gm/ Sodium (Chloride) 250 mls @ 167 mls/hr IV Q8H [facility] Last Admin: 11/11/16 00:09 Dose: Not Given Vancomycin HCl 1 gm/ Sodium (Chloride) 250 mls @ 167 mls/hr IV Q8H [facility] Last Admin: 11/11/16 10:01 Dose: 167 mls/hr Clindamycin Phosphate 900 mg/ (Sodium Chloride) 106 mls @ 100 mls/hr IV Q6H [facility] Last Admin: 11/11/16 17:41 Dose: Not Given Methylprednisolone Sodium Succinate (Solu-Medrol) 40 mg IVPUSH Q8H [facility] Methylprednisolone Sodium Succinate (Solu-Medrol) 40 mg IVPUSH Q12H [facility] Last Admin: 11/06/16 16:22 Dose: 40 mg Methylprednisolone Sodium Succinate (Solu-Medrol) 40 mg IVPUSH Q12H [facility] Stop: 11/10/16 23:59 Last Admin: 11/10/16 20:12 Dose: 40 mg Midazolam HCl (Versed 1 Mg/Ml) Confirm Administered Dose 2 mg .ROUTE .STK-MED ONE Stop: 11/06/16 14:22 Last Admin: 11/06/16 16:44 Dose: Not Given Midazolam HCl (Versed 1 Mg/Ml) 2 mg IVPUSH ONETIME ONE Stop: 11/06/16 14:28 Last Admin: 11/06/16 14:21 Dose: 2 mg Pneumococcal Polyvalent Vaccine (Pneumovax 23) 0.5 ml IM .ONCE ONE Stop: 11/09/16 11:07 Prednisone (Prednisone) 40 mg PO DAILY [facility] Stop: 11/13/16 09:01 Last Admin: 11/13/16 09:49 Dose: 40 mg Saccharomyces Boulardii (Florastor) 500 mg PO BID [facility] Last Admin: 11/10/16 09:05 Dose: 500 mg Vancomycin HCl (Pharmacy To Dose - Vancomycin) 0 dose .XX ASDIRECTED PRN PRN Reason: RX DOSE - Exam Quality Assessment: DVT prophylaxis General: alert, oriented, cooperative, no acute distress HEENT: Pupils equal, Pupils reactive, EOMI Neck: supple, trachea midline Lungs: Normal respiratory effort Cardiovascular: Regular Rate, Regular Rhythm Abdomen: bowel sounds present, soft, no tenderness, no distension (Female) Exam: Deferred Back Exam: Normal Inspection Extremities: normal pulses Skin: warm Neurological: no new focal deficit Psy/Mental Status: alert, normal affect, normal mood - Problem List & Annotations (1) Immunocompromised status associated with infection SNOMED Code(s): 801276553 Code(s): D84.9 - IMMUNODEFICIENCY, UNSPECIFIED; B99.9 - UNSPECIFIED INFECTIOUS DISEASE Status: Acute Current Visit: Yes (2) Pneumonia SNOMED Code(s): 088716551 Code(s): J18.9 - PNEUMONIA, UNSPECIFIED ORGANISM Status: Acute Current Visit: Yes Qualifiers: Pneumonia type: due to unspecified organism Laterality: right Lung location: lower lobe of lung Qualified Code(s): J18.1 - Lobar pneumonia, unspecified organism (3) Rheumatoid arthritis SNOMED Code(s): 92632625 Code(s): M06.9 - RHEUMATOID ARTHRITIS, UNSPECIFIED Status: Acute Current Visit: Yes Qualifiers: Rheumatoid arthritis location: multiple sites Rheumatoid factor presence: with rheumatoid factor Qualified Code(s): M05.79 - Rheumatoid arthritis with rheumatoid factor of multiple sites without organ or systems involvement (4) Septic shock SNOMED Code(s): 97849735 Code(s): A41.9 - SEPSIS, UNSPECIFIED ORGANISM; R65.21 - SEVERE SEPSIS WITH SEPTIC SHOCK Status: Acute Current Visit: Yes - Problem List Review Problem List Initiated/Reviewed/Updated: Yes - My Orders Last 24 Hours: My Active Orders 11/14/16 09:00 predniSONE 30 mg PO DAILY 11/17/16 09:00 predniSONE 20 mg PO DAILY 11/20/16 09:00 predniSONE 10 mg PO DAILY - Plan Plan:: Impression: RLL PNA with RA on immune suppressants Strep pneumo Bacteremia, Strep pneumo REPEAT BCs 11/11/16, negative. SWITCHED TO CLINDA ONLY FOR STREP/STAPH, WILL BE DC'D ON CLINDA 600 MG PO TID Former Tobacco, remote Pulmonary Fibrosis by history COPD Leukocytosis, 67.91---decreasing slowly CKD, stage III Wound Cx, MRSA; antibiotic therapy: Clindamycin IV 900 mg q 8 hours, change to oral dose 11/13/16. DC CENTRAL LINE 11/13/16. MRSA positive nares screen Major Depression Query PTSD Chronic HTN Rheumatoid arthritis Plan: Changed to [place] tele yesterday Droplet/contact isolation IVF, 0.9 NS Levoquin/Vanco; Cefepime has been stopped today Solumedrol Nebs Clear Liquids Home meds DVT/GI prophylaxis LOS >96 hours with current treatment for PNA with bacteremia
[2016-11-13] MEDS: Clindamycin HCl 150 MG Cap PO SCH ×2 (13:40→21:04)
[2016-11-13] MEDS: Acetaminophen/HYDROcodone 325-10 MG Tab PO PRN ×2 (15:11→21:04)
[2016-11-13] MEDS: QUEtiapine 25 MG Tab PO SCH (21:03)
[2016-11-13] MEDS: Montelukast 10 MG Tab PO SCH (21:04)
[2016-11-14] MEDS: Clindamycin HCl 150 MG Cap PO SCH ×2 (01:26→08:27)
[2016-11-14] MEDS: Albuterol/Ipratropium 3.0-0.5 MG/3 ML Neb Soln NEB SCH ×2 (07:03→09:48)
[2016-11-14] MEDS: Saccharomyces Boulardii (Probiotic) 250 MG Cap PO SCH (08:27)
[2016-11-14] MEDS: guaiFENesin 600 MG Tab.ER PO SCH (08:28)
[2016-11-14] MEDS: Hydroxychloroquine 200 MG Tab PO SCH (08:28)
[2016-11-14] MEDS: Tolterodine 2 MG Tab PO SCH (08:28)
[2016-11-14] MEDS: Enoxaparin 40 MG/0.4 ML Syringe SUBCUT SCH (08:28)
[2016-11-14] MEDS: FLUoxetine 20 MG Cap PO SCH (08:28)
[2016-11-14] MEDS ORDERED: predniSONE 10 MG Tab PO SCH (09:00)
[2016-11-14 09:35] VITALS: BP 107/83
--- NOTE | 2016-11-14 09:46 | PCM.DCSUM1 ---
<Kelsey Montoya M - Last Filed: 11/14/16 09:43> Discharge Summary - Hospital Course Free Text/Narrative:: 56 year old female presenting with productive cough with green sputum, fever/ chills. The symptoms are becoming worse, she admits to malaise, generalized weakness. Has had progressive shortness of breath; a former tobacco smoker who quit in 2000. She is immune compromised on immune suppressants for rheumatoid arthritis. She has had sick contact with exposure to grandchildren who were ill with a flu like virus approximately one week [employer]. She was seen by a health care provider 48 hours [employer] and was believed to have a viral upper respiratory infection. On presentation, she was hypotenive and tachycardia; she will be admitted to the ICU for treatment of sepsis/pneumonia. - Discharge Data Discharge Date: 11/14/16 (admit date11/06/16) Discharge Disposition: Home, Self-Care 01 Condition: Good - Patient Summary/Data Operative Procedure(s) Performed: None Complications: None Consults: Consultations 11/06/16 16:08 Consult to C 40A Crew Chief [CONS] Routine 11/07/16 10:00 Consult to Occupational Therapy [OT Evaluation and Treatment] [CONS] Routine Consult to Physical Therapy [PT Evaluation and Treatment] [CONS] Routine 11/07/16 12:04 Consult to Physician [CONS] Routine 11/08/16 06:24 Consult to Spiritual Care [CONS] Routine Labs Pending at D/C: None Recommended Follow-up Testing/Procedures: Follow up with PCP within 5-7 days of discharge Planned Operative Procedure(s) after DC: None Hospital Course: As above - Patient Instructions Diet: Usual Diet as Tolerated Activity: As Tolerated Driving: Do Not Drive Showering/Bathing: May Shower Notify Provider of: Fever, Increased Pain, Swelling and Redness, Nausea and/or Vomiting - Discharge Plan Prescriptions/Med Rec: Bifidobacter. Bifidum/B.Longum [Florajen Bifidoblend] 460 mg PO DAILY #30 capsule Clindamycin HCl [Cleocin HCl] 600 mg PO TID #30 capsule FLUoxetine [PROzac] 20 mg PO DAILY #30 cap Prednisone [IJD: Prednisone] 10 mg PO DAILY #30 tab QUEtiapine [SEROquel] 12.5 mg PO BEDTIME #30 tablet Home Medications: Home Meds Acetaminophen/HYDROcodone [[place] 325-10 MG] 1 tab PO Q6H PRN 11/06/16 [History] Albuterol [Proventil HFA] 2 inh INH Q6H PRN 11/06/16 [History] Albuterol/Ipratropium [DuoNeb 3.0-0.5 MG/3 ML] 1 inh INH Q6H 11/06/16 [History] Calcium Carb/D3/Magnesium/Zinc [Kzsavdw-Xvi-Sppy-Vit D] 1 tab PO BID 11/06/16 [ History] Enalapril Maleate 20 mg PO DAILY 11/06/16 [History] Enalapril [Vasotec] 10 mg PO DAILY 11/06/16 [History] Fluticasone/Salmeterol [Advair Diskus 100-50] 1 inh INH BID 11/06/16 [History] Hydroxychloroquine Sulfate [Plaquenil] 200 mg PO BID 11/06/16 [History] Montelukast [Singulair] 10 mg PO BEDTIME 11/06/16 [History] Tocilizumab [Actemra] 800 mg IV ASDIRECTED 11/06/16 [History] Tolterodine [Detrol] 2 mg PO DAILY 11/06/16 [History] guaiFENesin [Mucinex] 1 tab PO BID 11/06/16 [History] Bifidobacter. Bifidum/B.Longum [Florajen Bifidoblend] 460 mg PO DAILY #30 capsule 11/14/16 [Rx] Clindamycin HCl [Cleocin HCl] 600 mg PO TID #30 capsule 11/14/16 [Rx] FLUoxetine [PROzac] 20 mg PO DAILY #30 cap 11/14/16 [Rx] Prednisone [IJD: Prednisone] 10 mg PO DAILY #30 tab 11/14/16 [Rx] QUEtiapine [SEROquel] 12.5 mg PO BEDTIME #30 tablet 11/14/16 [Rx] Patient Handouts: Smoking Hazards, Smoking Cessation, Tips for Success, MRSA Infection, Adult, Bacteremia, Community-Acquired Pneumonia, Adult, [id number] , MRSA FAQs - [place], Septic Shock Forms: ED Department Discharge Referrals: Smith Hoskins MD [Physician] - 12/02/16 2:30 pm (Please get a referal from [facility] to have appointment with Dr. Hoskins for your right knee prior to appointment. Please arrive 15 mins early. ) PCP,Not In Area [Primary Care Provider] - - Discharge Summary/Plan Comment DC Time >30 min.: Yes (40 min) - General Info Date of Service: 11/14/16 Admission Dx/Problem (Free Text: Doing well; stronger. Good appetite VSS, afebrile Functional Status: Reports: pain controlled, tolerating diet, ambulating, urinating. Denies: new symptoms - Review of Systems General: Reports: No Symptoms, Weakness (improved to resolved) HEENT: Reports: no symptoms Pulmonary: Reports: no symptoms, cough (improved to resolved) Cardiovascular: Reports: No Symptoms Gastrointestinal: Reports: No symptoms Genitourinary: Reports: no symptoms Musculoskeletal: Reports: no symptoms Skin: Reports: no symptoms Neurological: Reports: No Symptoms Psychiatric: Reports: no symptoms - Patient Data Vitals - Most Recent: Last Vital Signs Temp 98.2 F 11/14/16 08:37 Pulse 72 11/14/16 08:37 Resp 19 11/14/16 08:37 BP 107/83 11/14/16 08:37 Pulse Ox 97 11/14/16 08:37 Weight - Most Recent: 104.326 kg I&O - Last 24 hours: Intake & Output 11/13/16 11/14/16 11/14/16 22:59 06:59 14:59 Intake Total 550 550 Output Total 1375 Balance 550 -825 Lab Results - Last 24 hrs: Laboratory Results - last 24 hr 11/14/16 11/14/16 Range/Units 08:08 08:08 WBC 13.28 H (3.98-10.04) K/mm3 RBC 4.33 (3.98-5.22) M/mm3 Hgb 11.5 (11.2-15.7) gm/L Hct 35.5 (34.1-44.9) % MCV 82.0 (79.4-94.8) fl MCH 26.6 (25.6-32.2) pg MCHC 32.4 (32.2-35.5) g/dl RDW Std Deviation 50.0 H (36.4-46.3) fL Plt Count 132 L (182-369) K/mm3 MPV 10.7 (9.4-12.3) fl Neut % (Auto) 56.7 (34.0-71.1) % Lymph % (Auto) 26.3 (19.3-51.7) % [place] % (Auto) 5.7 (4.7-12.5) % Eos % (Auto) 4.6 (0.7-5.8) Baso % (Auto) 0.2 (0.1-1.2) % Neut # (Auto) 7.53 H (1.56-6.13) K/mm3 Lymph # (Auto) 3.49 (1.18-3.74) K/mm3 [place] # (Auto) 0.76 H (0.24-0.36) K/mm3 Eos # (Auto) 0.61 H (0.04-0.36) K/mm3 Baso # (Auto) 0.03 (0.01-0.08) K/mm3 Sodium 143 (136-145) mEq/L Potassium 4.0 (3.5-5.1) mEq/L Chloride 109 H (98-107) mEq/L Carbon Dioxide 26 (21-32) mEq/L Anion Gap 12.0 (5-15) BUN 14 (7-18) mg/dL Creatinine 0.7 (0.55-1.02) mg/dL Est Cr Clr Drug Dosing 89.45 mL/min Estimated GFR (MDRD) > 60 (>60) mL/min BUN/Creatinine Ratio 20.0 H (14-18) Glucose 83 (74-106) mg/dL Calcium 8.0 L (8.5-10.1) mg/dL [facility] Results - Last 24 hrs: Microbiology 11/11/16 05:44 Aerobic Blood Culture - Preliminary Blood - Venous - Lab Draw NO GROWTH AFTER 3 DAYS Anaerobic Blood Culture - Preliminary NO GROWTH AFTER 3 DAYS 11/11/16 05:34 Aerobic Blood Culture - Preliminary Blood - Venous NO GROWTH AFTER 3 DAYS Anaerobic Blood Culture - Preliminary NO GROWTH AFTER 3 DAYS Med Orders - Current: Current Medications Acetaminophen (Tylenol) 650 mg PO Q6H PRN PRN Reason: Fever Last Admin: 11/11/16 20:27 Dose: 650 mg Hydrocodone Bitart/Acetaminophen ([place] 325-10 Mg) 1 tab PO Q6H PRN PRN Reason: Pain Last Admin: 11/13/16 21:04 Dose: 1 tab Albuterol/Ipratropium (Duoneb 3.0-0.5 Mg/3 Ml) 3 ml NEB QIDRT [facility] Last Admin: 11/14/16 07:03 Dose: 3 ml Clindamycin HCl (Cleocin) 450 mg PO Q6H [facility] Last Admin: 11/14/16 08:27 Dose: 450 mg Docusate Sodium (Colace) 100 mg PO BID PRN PRN Reason: Constipation Last Admin: 11/10/16 10:37 Dose: 100 mg Enoxaparin Sodium (Lovenox) 40 mg SUBCUT DAILY [facility] Last Admin: 11/14/16 08:28 Dose: 40 mg Fluoxetine HCl (Prozac) 20 mg PO DAILY [facility] Last Admin: 11/14/16 08:28 Dose: 20 mg Guaifenesin (Mucinex) 600 mg PO BID [facility] Last Admin: 11/14/16 08:28 Dose: 600 mg Hydroxychloroquine Sulfate (Plaquenil) 200 mg PO BID [facility] Last Admin: 11/14/16 08:28 Dose: 200 mg Magnesium Hydroxide (Milk Of Magnesia) 30 ml PO BID PRN PRN Reason: Constipation Last Admin: 11/11/16 08:34 Dose: 30 ml Montelukast Sodium (Singulair) 10 mg PO BEDTIME [facility] Last Admin: 11/13/16 21:04 Dose: 10 mg Ondansetron HCl (Zofran) 4 mg IVPUSH Q8H PRN PRN Reason: Nausea/Vomiting Actemra (Tocilizumab (800 Mg) Injection) 0 each .XX ASDIRECTED [facility] Prednisone (Prednisone) 30 mg PO DAILY [facility] Stop: 11/16/16 09:01 Last Admin: 11/14/16 08:28 Dose: 30 mg Prednisone (Prednisone) 20 mg PO DAILY [facility] Stop: 11/19/16 09:01 Prednisone (Prednisone) 10 mg PO DAILY [facility] Stop: 11/22/16 09:01 Quetiapine Fumarate (Seroquel) 12.5 mg PO BEDTIME [facility] Last Admin: 11/13/16 21:03 Dose: 12.5 mg Saccharomyces Boulardii (Florastor) 250 mg PO BID [facility] Last Admin: 11/14/16 08:27 Dose: 250 mg Fluticasone/Salmeterol (Advair Diskus 100-50) 1 puff INH BID [facility] Last Admin: 11/13/16 21:25 Dose: 1 puff Tolterodine Tartrate (Detrol) 2 mg PO DAILY [facility]NA Last Admin: 11/14/16 08:28 Dose: 2 mg Discontinued Medications Acetaminophen (Tylenol) 975 mg PO NOW ONE Stop: 11/06/16 11:41 Last Admin: 11/06/16 12:05 Dose: 975 mg Albuterol/Ipratropium (Duoneb 3.0-0.5 Mg/3 Ml) 3 ml NEB ONETIME ONE Stop: 11/06/16 11:45 Last Admin: 11/06/16 12:10 Dose: 3 ml Albuterol/Ipratropium (Duoneb 3.0-0.5 Mg/3 Ml) 3 ml NEB QID DANA Sodium Chloride (Normal Saline) 1,000 mls @ 999 mls/hr IV ONETIME ONE Stop: 11/06/16 12:39 Last Admin: 11/06/16 12:05 Dose: 999 mls/hr Levofloxacin/Dextrose 750 mg/ (Premix) 150 mls @ 100 mls/hr IV ONETIME ONE Stop: 11/06/16 13:20 Last Admin: 11/06/16 12:05 Dose: 100 mls/hr Linezolid 600 mg/ Premix 300 mls @ 300 mls/hr IV ONETIME ONE Stop: 11/06/16 13:46 Last Admin: 11/06/16 13:07 Dose: 300 mls/hr Norepinephrine Bitartrate 4 mg (/ Dextrose/Water) 250 mls @ 15 mls/hr IV TITRATE DANA; 4 MCG/MIN PRN Reason: Protocol Last Titration: 11/07/16 02:06 Dose: 0 mcg/min, 0 mls/hr Cefepime HCl 2 gm/ Premix 50 mls @ 100 mls/hr IV Q8H DANA Last Admin: 11/09/16 01:24 Dose: 100 mls/hr Levofloxacin/Dextrose 750 mg/ (Premix) 150 mls @ 100 mls/hr IV Q24H [facility]NA Last Admin: 11/12/16 09:04 Dose: 100 mls/hr Sodium Chloride (Normal Saline) 1,000 mls @ 999 mls/hr IV ASDIRECTED [facility] Last Infusion: 11/06/16 23:34 Dose: Infused Vancomycin HCl 1 gm/ Sodium (Chloride) 250 mls @ 250 mls/hr IV ONETIME ONE Stop: 11/06/16 21:59 Last Admin: 11/06/16 20:32 Dose: 250 mls/hr Magnesium Sulfate 2 gm/ Premix 50 mls @ 25 mls/hr IV ONETIME ONE Stop: 11/07/16 01:16 Last Admin: 11/07/16 00:04 Dose: 25 mls/hr Vancomycin HCl 1 gm/Vancomycin HCl 250 mg/ Sodium Chloride 250 mls @ 167 mls/ hr IV Q8H [facility] Last Admin: 11/10/16 00:27 Dose: 167 mls/hr Vancomycin HCl 1 gm/ Sodium (Chloride) 250 mls @ 167 mls/hr IV Q8H [facility] Last Admin: 11/11/16 00:09 Dose: Not Given Vancomycin HCl 1 gm/ Sodium (Chloride) 250 mls @ 167 mls/hr IV Q8H [facility] Last Admin: 11/11/16 10:01 Dose: 167 mls/hr Clindamycin Phosphate 900 mg/ (Sodium Chloride) 106 mls @ 100 mls/hr IV Q6H [facility] Last Admin: 11/11/16 17:41 Dose: Not Given Clindamycin Phosphate 900 mg/ (Sodium Chloride) 106 mls @ 100 mls/hr IV Q8H [facility] Last Admin: 11/13/16 10:37 Dose: 100 mls/hr Methylprednisolone Sodium Succinate (Solu-Medrol) 40 mg IVPUSH Q8H [facility] Methylprednisolone Sodium Succinate (Solu-Medrol) 40 mg IVPUSH Q12H [facility] Last Admin: 11/06/16 16:22 Dose: 40 mg Methylprednisolone Sodium Succinate (Solu-Medrol) 40 mg IVPUSH Q12H [facility] Stop: 11/10/16 23:59 Last Admin: 11/10/16 20:12 Dose: 40 mg Midazolam HCl (Versed 1 Mg/Ml) Confirm Administered Dose 2 mg .ROUTE .STK-MED ONE Stop: 11/06/16 14:22 Last Admin: 11/06/16 16:44 Dose: Not Given Midazolam HCl (Versed 1 Mg/Ml) 2 mg IVPUSH ONETIME ONE Stop: 11/06/16 14:28 Last Admin: 11/06/16 14:21 Dose: 2 mg Pneumococcal Polyvalent Vaccine (Pneumovax 23) 0.5 ml IM .ONCE ONE Stop: 11/09/16 11:07 Prednisone (Prednisone) 40 mg PO DAILY [facility] Stop: 11/13/16 09:01 Last Admin: 11/13/16 09:49 Dose: 40 mg Saccharomyces Boulardii (Florastor) 500 mg PO BID [facility] Last Admin: 11/10/16 09:05 Dose: 500 mg Vancomycin HCl (Pharmacy To Dose - Vancomycin) 0 dose .XX ASDIRECTED PRN PRN Reason: RX DOSE - Exam Quality Assessment: Reports: DVT prophylaxis General: Reports: alert, oriented, cooperative, no acute distress HEENT: Reports: Pupils equal, Pupils reactive, EOMI, Mucous membr. moist/pink Neck: Reports: supple Lungs: Reports: Clear to auscultation, Normal respiratory effort Cardiovascular: Reports: Regular Rate, Regular Rhythm Abdomen: Reports: bowel sounds present, soft, no tenderness, no distension (Female) Exam: Deferred Rectal (Female) Exam: Deferred Extremities: Reports: no edema Skin: Reports: warm, dry, intact Neurological: Reports: no new focal deficit Psy/Mental Status: Reports: alert, normal affect, normal mood Discharge Operative/Procedures - Procedures Performed CL Indication: IV access, hemodynamic monitoring, medication administration *Q Meaningful Use (DIS) - VTE *Q VTE Criteria *Q: - Stroke *Q Stroke Criteria *Q: - AMI *Q AMI Criteria *Q: <Halie Bradley - Last Filed: 11/14/16 10:43> Discharge Summary - Hospital Course Free Text/Narrative:: DC on Clindamycin, will need right total knee arthroplasty; wishes to have the procedure performed by Dr Hoskins. - Discharge Diagnosis/Problem(s) (1) Immunocompromised status associated with infection SNOMED Code(s): 522664561 ICD Code: D84.9 - IMMUNODEFICIENCY, UNSPECIFIED; B99.9 - UNSPECIFIED INFECTIOUS DISEASE Status: Acute Current Visit: Yes (2) Pneumonia SNOMED Code(s): 116111489 ICD Code: J18.9 - PNEUMONIA, UNSPECIFIED ORGANISM Status: Acute Current Visit: Yes Qualifiers: Pneumonia type: due to unspecified organism Laterality: right Lung location: lower lobe of lung Qualified Code(s): J18.1 - Lobar pneumonia, unspecified organism (3) Rheumatoid arthritis SNOMED Code(s): 05678888 ICD Code: M06.9 - RHEUMATOID ARTHRITIS, UNSPECIFIED Status: Acute Current Visit: Yes Qualifiers: Rheumatoid arthritis location: multiple sites Rheumatoid factor presence: with rheumatoid factor Qualified Code(s): M05.79 - Rheumatoid arthritis with rheumatoid factor of multiple sites without organ or systems involvement (4) Septic shock SNOMED Code(s): 99535070 ICD Code: A41.9 - SEPSIS, UNSPECIFIED ORGANISM; R65.21 - SEVERE SEPSIS WITH SEPTIC SHOCK Status: Acute Current Visit: Yes - Patient Summary/Data Consults: Consultations 11/06/16 16:08 Consult to C 40A Crew Chief [CONS] Routine 11/07/16 10:00 Consult to Occupational Therapy [OT Evaluation and Treatment] [CONS] Routine Consult to Physical Therapy [PT Evaluation and Treatment] [CONS] Routine 11/07/16 12:04 Consult to Physician [CONS] Routine 11/08/16 06:24 Consult to Spiritual Care [CONS] Routine - Patient Data Vitals - Most Recent: Last Vital Signs Temp 36.8 C 11/14/16 08:37 Pulse 72 11/14/16 08:37 Resp 19 11/14/16 08:37 BP 107/83 11/14/16 08:37 Pulse Ox 95 11/14/16 09:51 I&O - Last 24 hours: Intake & Output 11/13/16 11/14/16 11/14/16 22:59 06:59 14:59 Intake Total 550 550 Output Total 1375 Balance 550 -825 Lab Results - Last 24 hrs: Laboratory Results - last 24 hr 11/14/16 11/14/16 Range/Units 08:08 08:08 WBC 13.28 H (3.98-10.04) K/mm3 RBC 4.33 (3.98-5.22) M/mm3 Hgb 11.5 (11.2-15.7) gm/L Hct 35.5 (34.1-44.9) % MCV 82.0 (79.4-94.8) fl MCH 26.6 (25.6-32.2) pg MCHC 32.4 (32.2-35.5) g/dl RDW Std Deviation 50.0 H (36.4-46.3) fL Plt Count 132 L (182-369) K/mm3 MPV 10.7 (9.4-12.3) fl Neut % (Auto) 56.7 (34.0-71.1) % Lymph % (Auto) 26.3 (19.3-51.7) % [place] % (Auto) 5.7 (4.7-12.5) % Eos % (Auto) 4.6 (0.7-5.8) Baso % (Auto) 0.2 (0.1-1.2) % Neut # (Auto) 7.53 H (1.56-6.13) K/mm3 Lymph # (Auto) 3.49 (1.18-3.74) K/mm3 [place] # (Auto) 0.76 H (0.24-0.36) K/mm3 Eos # (Auto) 0.61 H (0.04-0.36) K/mm3 Baso # (Auto) 0.03 (0.01-0.08) K/mm3 Sodium 143 (136-145) mEq/L Potassium 4.0 (3.5-5.1) mEq/L Chloride 109 H (98-107) mEq/L Carbon Dioxide 26 (21-32) mEq/L Anion Gap 12.0 (5-15) BUN 14 (7-18) mg/dL Creatinine 0.7 (0.55-1.02) mg/dL Est Cr Clr Drug Dosing 89.45 mL/min Estimated GFR (MDRD) > 60 (>60) mL/min BUN/Creatinine Ratio 20.0 H (14-18) Glucose 83 (74-106) mg/dL Calcium 8.0 L (8.5-10.1) mg/dL [facility] Results - Last 24 hrs: Microbiology 11/11/16 05:44 Aerobic Blood Culture - Preliminary Blood - Venous - Lab Draw NO GROWTH AFTER 3 DAYS Anaerobic Blood Culture - Preliminary NO GROWTH AFTER 3 DAYS 11/11/16 05:34 Aerobic Blood Culture - Preliminary Blood - Venous NO GROWTH AFTER 3 DAYS Anaerobic Blood Culture - Preliminary NO GROWTH AFTER 3 DAYS Med Orders - Current: Current Medications Acetaminophen (Tylenol) 650 mg PO Q6H PRN PRN Reason: Fever Last Admin: 11/11/16 20:27 Dose: 650 mg Hydrocodone Bitart/Acetaminophen ([place] 325-10 Mg) 1 tab PO Q6H PRN PRN Reason: Pain Last Admin: 11/13/16 21:04 Dose: 1 tab Albuterol/Ipratropium (Duoneb 3.0-0.5 Mg/3 Ml) 3 ml NEB QIDRT [facility] Last Admin: 11/14/16 09:48 Dose: 3 ml Clindamycin HCl (Cleocin) 450 mg PO Q6H [facility] Last Admin: 11/14/16 08:27 Dose: 450 mg Docusate Sodium (Colace) 100 mg PO BID PRN PRN Reason: Constipation Last Admin: 11/10/16 10:37 Dose: 100 mg Enoxaparin Sodium (Lovenox) 40 mg SUBCUT DAILY [facility] Last Admin: 11/14/16 08:28 Dose: 40 mg Fluoxetine HCl (Prozac) 20 mg PO DAILY [facility] Last Admin: 11/14/16 08:28 Dose: 20 mg Guaifenesin (Mucinex) 600 mg PO BID [facility] Last Admin: 11/14/16 08:28 Dose: 600 mg Hydroxychloroquine Sulfate (Plaquenil) 200 mg PO BID [facility] Last Admin: 11/14/16 08:28 Dose: 200 mg Magnesium Hydroxide (Milk Of Magnesia) 30 ml PO BID PRN PRN Reason: Constipation Last Admin: 11/11/16 08:34 Dose: 30 ml Montelukast Sodium (Singulair) 10 mg PO BEDTIME [facility] Last Admin: 11/13/16 21:04 Dose: 10 mg Ondansetron HCl (Zofran) 4 mg IVPUSH Q8H PRN PRN Reason: Nausea/Vomiting Actemra (Tocilizumab (800 Mg) Injection) 0 each .XX ASDIRECTED [facility] Prednisone (Prednisone) 30 mg PO DAILY [facility] Stop: 11/16/16 09:01 Last Admin: 11/14/16 08:28 Dose: 30 mg Prednisone (Prednisone) 20 mg PO DAILY [facility] Stop: 11/19/16 09:01 Prednisone (Prednisone) 10 mg PO DAILY [facility] Stop: 11/22/16 09:01 Quetiapine Fumarate (Seroquel) 12.5 mg PO BEDTIME [facility] Last Admin: 11/13/16 21:03 Dose: 12.5 mg Saccharomyces Boulardii (Florastor) 250 mg PO BID [facility] Last Admin: 11/14/16 08:27 Dose: 250 mg Fluticasone/Salmeterol (Advair Diskus 100-50) 1 puff INH BID [facility] Last Admin: 11/14/16 09:50 Dose: 1 puff Tolterodine Tartrate (Detrol) 2 mg PO DAILY [facility] Last Admin: 11/14/16 08:28 Dose: 2 mg Discontinued Medications Acetaminophen (Tylenol) 975 mg PO NOW ONE Stop: 11/06/16 11:41 Last Admin: 11/06/16 12:05 Dose: 975 mg Albuterol/Ipratropium (Duoneb 3.0-0.5 Mg/3 Ml) 3 ml NEB ONETIME ONE Stop: 11/06/16 11:45 Last Admin: 11/06/16 12:10 Dose: 3 ml Albuterol/Ipratropium (Duoneb 3.0-0.5 Mg/3 Ml) 3 ml NEB QID DANA Sodium Chloride (Normal Saline) 1,000 mls @ 999 mls/hr IV ONETIME ONE Stop: 11/06/16 12:39 Last Admin: 11/06/16 12:05 Dose: 999 mls/hr Levofloxacin/Dextrose 750 mg/ (Premix) 150 mls @ 100 mls/hr IV ONETIME ONE Stop: 11/06/16 13:20 Last Admin: 11/06/16 12:05 Dose: 100 mls/hr Linezolid 600 mg/ Premix 300 mls @ 300 mls/hr IV ONETIME ONE Stop: 11/06/16 13:46 Last Admin: 11/06/16 13:07 Dose: 300 mls/hr Norepinephrine Bitartrate 4 mg (/ Dextrose/Water) 250 mls @ 15 mls/hr IV TITRATE DANA; 4 MCG/MIN PRN Reason: Protocol Last Titration: 11/07/16 02:06 Dose: 0 mcg/min, 0 mls/hr Cefepime HCl 2 gm/ Premix 50 mls @ 100 mls/hr IV Q8H [facility] Last Admin: 11/09/16 01:24 Dose: 100 mls/hr Levofloxacin/Dextrose 750 mg/ (Premix) 150 mls @ 100 mls/hr IV Q24H [facility] Last Admin: 11/12/16 09:04 Dose: 100 mls/hr Sodium Chloride (Normal Saline) 1,000 mls @ 999 mls/hr IV ASDIRECTED [facility] Last Infusion: 11/06/16 23:34 Dose: Infused Vancomycin HCl 1 gm/ Sodium (Chloride) 250 mls @ 250 mls/hr IV ONETIME ONE Stop: 11/06/16 21:59 Last Admin: 11/06/16 20:32 Dose: 250 mls/hr Magnesium Sulfate 2 gm/ Premix 50 mls @ 25 mls/hr IV ONETIME ONE Stop: 11/07/16 01:16 Last Admin: 11/07/16 00:04 Dose: 25 mls/hr Vancomycin HCl 1 gm/Vancomycin HCl 250 mg/ Sodium Chloride 250 mls @ 167 mls/ hr IV Q8H [facility] Last Admin: 11/10/16 00:27 Dose: 167 mls/hr Vancomycin HCl 1 gm/ Sodium (Chloride) 250 mls @ 167 mls/hr IV Q8H [facility] Last Admin: 11/11/16 00:09 Dose: Not Given Vancomycin HCl 1 gm/ Sodium (Chloride) 250 mls @ 167 mls/hr IV Q8H [facility] Last Admin: 11/11/16 10:01 Dose: 167 mls/hr Clindamycin Phosphate 900 mg/ (Sodium Chloride) 106 mls @ 100 mls/hr IV Q6H [facility] Last Admin: 11/11/16 17:41 Dose: Not Given Clindamycin Phosphate 900 mg/ (Sodium Chloride) 106 mls @ 100 mls/hr IV Q8H [facility] Last Admin: 11/13/16 10:37 Dose: 100 mls/hr Methylprednisolone Sodium Succinate (Solu-Medrol) 40 mg IVPUSH Q8H [facility] Methylprednisolone Sodium Succinate (Solu-Medrol) 40 mg IVPUSH Q12H [facility] Last Admin: 11/06/16 16:22 Dose: 40 mg Methylprednisolone Sodium Succinate (Solu-Medrol) 40 mg IVPUSH Q12H [facility] Stop: 11/10/16 23:59 Last Admin: 11/10/16 20:12 Dose: 40 mg Midazolam HCl (Versed 1 Mg/Ml) Confirm Administered Dose 2 mg .ROUTE .STK-MED ONE Stop: 11/06/16 14:22 Last Admin: 11/06/16 16:44 Dose: Not Given Midazolam HCl (Versed 1 Mg/Ml) 2 mg IVPUSH ONETIME ONE Stop: 11/06/16 14:28 Last Admin: 11/06/16 14:21 Dose: 2 mg Pneumococcal Polyvalent Vaccine (Pneumovax 23) 0.5 ml IM .ONCE ONE Stop: 11/09/16 11:07 Prednisone (Prednisone) 40 mg PO DAILY [facility] Stop: 11/13/16 09:01 Last Admin: 11/13/16 09:49 Dose: 40 mg Saccharomyces Boulardii (Florastor) 500 mg PO BID [facility] Last Admin: 11/10/16 09:05 Dose: 500 mg Vancomycin HCl (Pharmacy To Dose - Vancomycin) 0 dose .XX ASDIRECTED PRN PRN Reason: RX DOSE *Q Meaningful Use (DIS) - VTE *Q VTE Criteria *Q: - Stroke *Q Stroke Criteria *Q: - AMI *Q AMI Criteria *Q:
[2016-11-14] MEDS: Fluticasone/Salmeterol 100-50 MCG Inhalation Powder 14/Diskus INH SCH (09:50)
[2016-11-17] MEDS ORDERED: predniSONE 20 MG Tab PO SCH (09:00)
[2016-11-20] MEDS ORDERED: predniSONE 10 MG Tab PO SCH (09:00)
== END 2016-11-14 11:50 | disposition home or self-care (01) | DRG 871 ==
LOC: JD.ED 11:12 → JD.ICU 12:59 → JD.MS 11-09 18:38
PROVIDERS: ADMIT Emergency Medicine; ATTEND Internal Medicine Cardiovascular Disease
DX: A41.9 Sepsis, unspecified organism (principal); R65.21 Severe sepsis with septic shock; J18.9 Pneumonia, unspecified organism; D84.9 Immunodeficiency, unspecified; L03.319 Cellulitis of trunk, unspecified; F32.3 Major depressive disorder, single episode, severe with psychotic features; B95.3 Streptococcus pneumoniae as the cause of diseases classified elsewhere; B95.62 Methicillin resistant Staphylococcus aureus infection as the cause of diseases classified elsewhere; I10 Essential (primary) hypertension; M05.79 Rheumatoid arthritis with rheumatoid factor of multiple sites without organ or systems involvement; Z87.891 Personal history of nicotine dependence; J44.9 Chronic obstructive pulmonary disease, unspecified; J45.909 Unspecified asthma, uncomplicated; I12.9 Hypertensive chronic kidney disease with stage 1 through stage 4 chronic kidney disease, or unspecified chronic kidney disease; N18.3 Chronic kidney disease, stage 3 (moderate); Z87.01 Personal history of pneumonia (recurrent); J84.10 Pulmonary fibrosis, unspecified; F43.10 Post-traumatic stress disorder, unspecified; Z79.899 Other long term (current) drug therapy; Z23 Encounter for immunization
CPT/HCPCS: 36415; 36556; 71010; 80053; 82553; 83605; 83880; 84484; 85025; 85610; 85652; 86140; 86738; 87040 ×2; 87077; 87184; 87804 ×2; 93005; 94664; 96365; 99285; A9270; J1956; J7040; 71020; 71020-26; 80048; 80202; 81001; 83735; 87070; 87186; 87205; 87486; 87581; 87633; 87641; 87798; 87899; 90732; 94640; 94640-76; 94761; 96366; 96367; 96368; 96375; 97110-GP; 97116-GP; 97161-GP; 97165-GO; 97530-GO; G0009; J0692; J1650; J2020; J2250; J2920; J3370; J3475; J7030; J7050; J7060

== ENCOUNTER 2017-12-22 21:11 | Emergency (ER) | payer OTHER, MEDICARE ==
[2017-12-22 21:24] VITALS: BP 117/67
[2017-12-22] MEDS ORDERED: Albuterol/Ipratropium 3.0-0.5 MG/3 ML Neb Soln NEB ONE (22:02)
--- NOTE | 2017-12-22 22:05 | EDM.PDOC ---
ED HPI GENERAL MEDICAL PROBLEM - General Chief Complaint: Respiratory Problem Stated Complaint: SHORT OF BREATH Time Seen by Provider: 12/22/17 21:22 Source of Information: Reports: Patient History Limitations: Reports: No Limitations - History of Present Illness INITIAL COMMENTS - FREE TEXT/NARRATIVE: The patient presents with increased shortness of breath. This has been going on for over a week. She has a history of rheumatoid arthritis, COPD and asthma. She went to her medical office assistant and had an infusion and to her pcb design engineer yesterday. Her pcb design engineer increased her advair and put her on prednisone 40mg daily for a week. Two weeks ago she was seen at the clinic in [place] and she was put on antibiotics for pneumonia. She says today she is more short of breath. She was in her home and she had to sit down a couple times to catch her breath. She does have a cough after her breathing treatment but not normally. She has no chest pain. She does have chills but no fever. She has no nausea, vomiting or abdominal pain. She has some mild edema in her legs. Onset: Gradual Duration: Day(s): Severity: Moderate Improves with: Reports: Immobilization Worsens with: Reports: Movement Associated Symptoms: Reports: Shortness of Breath. Denies: Chest Pain, Cough, Fever/Chills, Nausea/Vomiting Generalized Pain Score (Numeric/FACES): 10 - Related Data Allergies Allergy/AdvReac Type Severity Reaction Status Date / Time No Known Allergies Allergy Verified 12/22/17 21:24 Home Meds: Home Meds Acetaminophen/HYDROcodone [[place] 325-10 MG] 1 tab PO Q6H PRN 11/06/16 [History] Albuterol [Proventil HFA] 2 inh INH Q6H PRN 11/06/16 [History] Albuterol/Ipratropium [DuoNeb 3.0-0.5 MG/3 ML] 1 inh INH Q6H 11/06/16 [History] Calcium Carb/D3/Magnesium/Zinc [Ystneda-Lgr-Vzjn-Vit D] 1 tab PO BID 11/06/16 [ History] Enalapril Maleate 20 mg PO DAILY 11/06/16 [History] Enalapril [Vasotec] 10 mg PO DAILY 11/06/16 [History] Fluticasone/Salmeterol [Advair Diskus 100-50] 1 inh INH BID 11/06/16 [History] Hydroxychloroquine Sulfate [Plaquenil] 200 mg PO BID 11/06/16 [History] Montelukast [Singulair] 10 mg PO BEDTIME 11/06/16 [History] Tocilizumab [Actemra] 800 mg IV ASDIRECTED 11/06/16 [History] Tolterodine [Detrol] 2 mg PO DAILY 11/06/16 [History] guaiFENesin [Mucinex] 1 tab PO BID 11/06/16 [History] Bifidobacter. Bifidum/B.Longum [Florajen Bifidoblend] 460 mg PO DAILY #30 capsule 11/14/16 [Rx] Clindamycin HCl [Cleocin HCl] 600 mg PO TID #30 capsule 11/14/16 [Rx] FLUoxetine [PROzac] 20 mg PO DAILY #30 cap 11/14/16 [Rx] Prednisone [IJD: Prednisone] 10 mg PO DAILY #30 tab 11/14/16 [Rx] QUEtiapine [SEROquel] 12.5 mg PO BEDTIME #30 tablet 11/14/16 [Rx] Past Medical History HEENT History: Reports: Cataract, Impaired Vision Cardiovascular History: Reports: Hypertension Respiratory History: Reports: Asthma, COPD, Other (See Below), Pneumonia, Recurrent Other Respiratory History: pulmonary fibrosis Musculoskeletal History: Reports: Arthritis, RA Oncologic (Cancer) History: Reports: Other (See Below) Other Oncologic History: precancerous cells in cervix - Past Surgical History HEENT Surgical History: Reports: Cataract Surgery GI Surgical History: Reports: Cholecystectomy Social & Family History - Family History Family Medical History: Noncontributory - Tobacco Use Smoking Status *Q: Never Smoker - Caffeine Use Caffeine Use: Reports: Soda - Recreational Drug Use Recreational Drug Use: No - Living Situation & Occupation Occupation: Disabled ED ROS GENERAL - Review of Systems Review Of Systems: See Below Constitutional: Reports: No Symptoms HEENT: Reports: No Symptoms Respiratory: Reports: Shortness of Breath. Denies: Cough Cardiovascular: Reports: Edema (both legs). Denies: Chest Pain Endocrine: Reports: No Symptoms GI/Abdominal: Reports: No Symptoms : Reports: No Symptoms Musculoskeletal: Reports: No Symptoms ED EXAM, GENERAL - Physical Exam Exam: See Below Exam Limited By: No Limitations General Appearance: Alert, No Apparent Distress Ears: Normal External Exam Nose: Normal Inspection Head: Atraumatic, Normocephalic Neck: Normal Inspection Respiratory/Chest: No Respiratory Distress, Decreased Breath Sounds, Wheezing Cardiovascular: Regular Rate, Rhythm, No Edema, No Murmur GI/Abdominal: Soft, Non-Tender, No Organomegaly, No Mass Back Exam: Normal Inspection Extremities: Leg Pain (Mild bilateral edema) Neurological: Alert, Oriented, No Motor/Sensory Deficits EKG INTERPRETATION EKG Date: 12/22/17 Time: 21:47 Rhythm: NSR Rate (Beats/Min): 84 [place]: LAD-Left [place] Deviation P-Wave: Present QRS: Normal ST-T: Normal QT: Normal Course - Vital Signs Last Recorded V/S: Last Vital Signs Temp 96.9 F 12/22/17 21:19 Pulse 83 12/22/17 21:19 Resp 18 12/22/17 21:19 BP 117/67 12/22/17 21:19 Pulse Ox 93 L 12/22/17 22:06 - Orders/Labs/Meds Orders: Active Orders 24 hr Category Date Time Status Cardiac Monitoring [RC] . DIRECTED Care 12/22/17 21:36 Active EKG Documentation Completion [RC] STAT Care 12/22/17 21:36 Active RT Aerosol Therapy [RC] ASDIRECTED Care 12/22/17 22:02 Active Chest 1V Frontal [CR] Stat Exams 12/22/17 21:36 Taken Labs: Laboratory Tests 12/22/17 12/22/17 12/22/17 Range/Units 21:56 21:56 21:56 WBC 7.02 (3.98-10.04) K/mm3 RBC 4.93 (3.98-5.22) M/mm3 Hgb 12.5 (11.2-15.7) gm/L Hct 39.0 (34.1-44.9) % MCV 79.1 L (79.4-94.8) fl MCH 25.4 L (25.6-32.2) pg MCHC 32.1 L (32.2-35.5) g/dl RDW Std Deviation 42.9 (36.4-46.3) fL Plt Count 302 (182-369) K/mm3 MPV 9.4 (9.4-12.3) fl Neut % (Auto) 91.5 H (34.0-71.1) % Lymph % (Auto) 4.7 L (19.3-51.7) % [place] % (Auto) 1.1 L (4.7-12.5) % Eos % (Auto) 2.0 (0.7-5.8) Baso % (Auto) 0.1 (0.1-1.2) % Neut # (Auto) 6.42 H (1.56-6.13) K/mm3 Lymph # (Auto) 0.33 L (1.18-3.74) K/mm3 [place] # (Auto) 0.08 L (0.24-0.36) K/mm3 Eos # (Auto) 0.14 (0.04-0.36) K/mm3 Baso # (Auto) 0.01 (0.01-0.08) K/mm3 Manual Slide Review Abnormal smear Sodium 139 (136-145) mEq/L Potassium 4.1 (3.5-5.1) mEq/L Chloride 106 (98-107) mEq/L Carbon Dioxide 22 (21-32) mEq/L Anion Gap 15.1 H (5-15) BUN 10 (7-18) mg/dL Creatinine 0.8 (0.55-1.02) mg/dL Est Cr Clr Drug Dosing 77.32 mL/min Estimated GFR (MDRD) > 60 (>60) mL/min BUN/Creatinine Ratio 12.5 L (14-18) Glucose 129 H (74-106) mg/dL Calcium 8.8 (8.5-10.1) mg/dL Total Bilirubin 0.4 (0.2-1.0) mg/dL AST 15 (15-37) U/L ALT 11 L (14-59) U/L Alkaline Phosphatase 55 (46-116) U/L Troponin I < 0.017 (0.00-0.056) ng/mL NT-Pro-B Natriuret Pep 82 (0-125) pg/mL Total Protein 7.2 (6.4-8.2) g/dl Albumin 2.7 L (3.4-5.0) g/dl Globulin 4.5 gm/dL Albumin/Globulin Ratio 0.6 L (1-2) Meds: Medications Discontinued Medications Generic Name Dose Route Start Last Admin Trade Name Freq PRN Reason Stop Dose Admin Albuterol/Ipratropium 3 ml 12/22/17 22:02 12/22/17 22:06 Duoneb 3.0-0.5 Mg/3 Ml NEB 12/22/17 22:03 3 ml ONETIME ONE Administration - Re-Assessments/Exams Free Text/Narrative Re-Assessment/Exam: 12/22/17 22:09 I ordered an IV saline lock, EKG, CXR, labs and a duoneb. Her EKG shows a NSR with no acute changes. 12/22/17 22:58 Her CXR shows COPD changes but nothing acute. Her CBC looks good. Her glucose was 129. Her troponin and BNP are negative. She feels a little better with the breathing treatment. I am not finding a reason for her leg edema. I will have her watch that and if it continues she may need some lasix. Departure - Departure Time of Disposition: 23:00 Disposition: Home, Self-Care 01 Condition: Good Clinical Impression: COPD exacerbation, Bilateral leg edema - Discharge Information Referrals: PCP,Not In Area [Primary Care Provider] - Forms: ED Department Discharge Additional Instructions: Take your medications as prescribed. Follow up with your doctor in 1 week. Please return if you are worse. - My Orders Last 24 Hours: My Active Orders 12/22/17 21:36 Cardiac Monitoring [RC] . DIRECTED EKG Documentation Completion [RC] STAT Chest 1V Frontal [CR] Stat 12/22/17 22:02 RT Aerosol Therapy [RC] ASDIRECTED - Assessment/Plan Last 24 Hours: My Active Orders 12/22/17 21:36 Cardiac Monitoring [RC] . DIRECTED EKG Documentation Completion [RC] STAT Chest 1V Frontal [CR] Stat 12/22/17 22:02 RT Aerosol Therapy [RC] ASDIRECTED
--- NOTE | 2017-12-23 08:29 | CR ---
Chest: Portable view of the chest was obtained. Comparison: Prior chest x-ray of 12/23/16. Heart size is normal. Mild tortuosity of the thoracic aorta is seen. Lung markings are increased which appear to be chronic. No acute parenchymal change is seen. Emphysematous change is felt to be present. Bony structures are grossly intact. Impression: 1. Emphysematous change and chronic increased lung markings. 2. Nothing acute is definitely appreciated. Diagnostic code #3
== END 2017-12-22 23:13 | disposition home or self-care (01) ==
LOC: JD.ED 21:11
DX: J44.1 Chronic obstructive pulmonary disease with (acute) exacerbation (principal); R60.0 Localized edema; I10 Essential (primary) hypertension; Z79.899 Other long term (current) drug therapy
CPT/HCPCS: 36415; 71045; 71045-26; 80053; 83880; 84484; 85025; 93005; 93010; 94640; 99284-25; 99285-25

== ENCOUNTER 2022-06-05 14:49 | Inpatient (IN) | payer MEDICARE, OTHER ==
[2022-06-05] MEDS: Sodium Chloride 0.9% 10 ML Syringe FLUSH PRN (15:30)
[2022-06-05] MEDS ORDERED: cefTRIAXone 2 GM in Sodium Chloride 0.9% 100 ML IV ONE (17:04)
[2022-06-05] MEDS: Sodium Chloride 0.9% 1,000 ML IV SCH (17:26)
[2022-06-05] MEDS ORDERED: Pantoprazole 40 MG Vial ONE (18:53)
[2022-06-05] MEDS ORDERED: Temazepam 7.5 MG Cap PO PRN (18:53)
[2022-06-05] MEDS ORDERED: Albuterol 6.7 GM Inhaler INH PRN (19:01)
[2022-06-05] MEDS ORDERED: Pantoprazole 40 MG Vial IVPUSH ONE ×2 (19:30→23:15)
[2022-06-05] MEDS ORDERED: Acetaminophen/HYDROcodone 325-5 MG Tab PO ONE (19:54)
[2022-06-05 21:44] LABS: CORONAVIRUS COVID-19 NAA NEGATIVE (NEGATIVE)
[2022-06-05] MEDS: QUEtiapine 25 MG Tab PO SCH (22:58)
[2022-06-05] MEDS: Hydroxychloroquine 200 MG Tab PO SCH (22:58)
[2022-06-05] MEDS: Formoterol/Mometasone 100-5 MCG 8.8 GM Inhaler IH SCH (23:47)
[2022-06-06] MEDS: Sodium Chloride 0.9% 1,000 ML IV SCH ×2 (01:36→10:05)
[2022-06-06] MEDS: Acetaminophen/HYDROcodone 325-5 MG Tab PO PRN ×3 (02:05→19:52)
[2022-06-06] MEDS: Formoterol/Mometasone 100-5 MCG 8.8 GM Inhaler IH SCH ×2 (08:35→20:34)
[2022-06-06] MEDS ORDERED: Enalapril 5 MG Tab PO SCH (09:00)
[2022-06-06] MEDS ORDERED: Trospium 20 MG Tab PO SCH (09:00)
[2022-06-06] MEDS: Enoxaparin 40 MG/0.4 ML Syringe SUBCUT SCH (10:03)
[2022-06-06] MEDS: FLUoxetine 20 MG Cap PO SCH (10:04)
[2022-06-06] MEDS: Hydroxychloroquine 200 MG Tab PO SCH ×3 (10:04→23:52)
[2022-06-06] MEDS ORDERED: Magnesium Sulfate/Water 2 GM in Premix Bag 1 BAG IV ONE (14:45)
[2022-06-06] MEDS: cefTRIAXone 1 GM in Sodium Chloride 0.9% 100 ML IV SCH (18:52)
[2022-06-06] MEDS: QUEtiapine 25 MG Tab PO SCH ×2 (19:51→23:52)
[2022-06-07] MEDS ORDERED: Magnesium Hydroxide 400 MG/5 ML Susp 30 ML Cup PO ONE (06:48)
[2022-06-07] MEDS: Enoxaparin 40 MG/0.4 ML Syringe SUBCUT SCH (08:30)
[2022-06-07] MEDS: Hydroxychloroquine 200 MG Tab PO SCH ×2 (08:32→21:30)
[2022-06-07] MEDS: FLUoxetine 20 MG Cap PO SCH (08:32)
[2022-06-07] MEDS: Cholecalciferol (Vitamin D3) 25 MCG Tab PO SCH (08:33)
[2022-06-07] MEDS: Sodium Chloride 0.9% 10 ML Syringe FLUSH PRN (08:33)
[2022-06-07] MEDS: Formoterol/Mometasone 100-5 MCG 8.8 GM Inhaler IH SCH ×2 (09:38→20:16)
[2022-06-07] MEDS: Acetaminophen/HYDROcodone 325-5 MG Tab PO PRN ×2 (11:22→17:43)
[2022-06-07] MEDS ORDERED: FLUoxetine 20 MG Cap PO SCH (11:30)
[2022-06-07] MEDS: cefTRIAXone 1 GM in Sodium Chloride 0.9% 100 ML IV SCH (17:40)
[2022-06-07] MEDS ORDERED: Hydroxychloroquine 200 MG Tab PO SCH (21:00)
[2022-06-07] MEDS ORDERED: QUEtiapine 25 MG Tab PO SCH (21:00)
[2022-06-07] MEDS ORDERED: Formoterol/Mometasone 200-5 MCG 8.8 GM Inhaler IH SCH (21:00)
[2022-06-07] MEDS: Montelukast 10 MG Tab PO SCH (21:30)
[2022-06-07] MEDS: QUEtiapine 25 MG Tab PO SCH (21:30)
[2022-06-08] MEDS: Acetaminophen/HYDROcodone 325-5 MG Tab PO PRN ×3 (00:45→20:08)
[2022-06-08] MEDS: Formoterol/Mometasone 100-5 MCG 8.8 GM Inhaler IH SCH ×2 (08:49→20:36)
[2022-06-08] MEDS ORDERED: predniSONE 10 MG Tab PO ONE (09:52)
[2022-06-08] MEDS: Hydroxychloroquine 200 MG Tab PO SCH ×2 (10:25→20:08)
[2022-06-08] MEDS: Cholecalciferol (Vitamin D3) 25 MCG Tab PO SCH (10:25)
[2022-06-08] MEDS: Enoxaparin 40 MG/0.4 ML Syringe SUBCUT SCH (10:25)
[2022-06-08] MEDS: Furosemide 20 MG Tab PO SCH (10:25)
[2022-06-08] MEDS: FLUoxetine 20 MG Cap PO SCH (10:25)
[2022-06-08] MEDS: cefTRIAXone 1 GM in Sodium Chloride 0.9% 100 ML IV SCH (18:09)
[2022-06-08] MEDS: QUEtiapine 25 MG Tab PO SCH (20:07)
[2022-06-08] MEDS: Montelukast 10 MG Tab PO SCH (20:08)
[2022-06-09] MEDS: predniSONE 20 MG Tab PO SCH (07:49)
[2022-06-09] MEDS: Formoterol/Mometasone 100-5 MCG 8.8 GM Inhaler IH SCH ×2 (08:00→20:12)
[2022-06-09] MEDS: Acetaminophen/HYDROcodone 325-10 MG Tab PO PRN ×2 (08:45→17:17)
[2022-06-09] MEDS: Enoxaparin 40 MG/0.4 ML Syringe SUBCUT SCH (08:45)
[2022-06-09] MEDS: Hydroxychloroquine 200 MG Tab PO SCH ×2 (08:46→21:13)
[2022-06-09] MEDS: Cholecalciferol (Vitamin D3) 25 MCG Tab PO SCH (08:46)
[2022-06-09] MEDS: Furosemide 20 MG Tab PO SCH (08:46)
[2022-06-09] MEDS: Mirabegron 25 MG Tab.Er PO SCH ×2 (08:47→12:04)
[2022-06-09] MEDS: FLUoxetine 20 MG Cap PO SCH (08:47)
[2022-06-09] MEDS ORDERED: Gabapentin 300 MG Cap PO SCH (21:00)
[2022-06-09] MEDS: Montelukast 10 MG Tab PO SCH (21:14)
[2022-06-09] MEDS: QUEtiapine 25 MG Tab PO SCH (21:14)
[2022-06-10] MEDS: Acetaminophen/HYDROcodone 325-10 MG Tab PO PRN ×2 (00:47→06:48)
[2022-06-10] MEDS: predniSONE 20 MG Tab PO SCH (06:49)
[2022-06-10] MEDS: Enoxaparin 40 MG/0.4 ML Syringe SUBCUT SCH (08:11)
[2022-06-10] MEDS: Furosemide 20 MG Tab PO SCH (08:11)
[2022-06-10] MEDS: Hydroxychloroquine 200 MG Tab PO SCH (08:11)
[2022-06-10] MEDS: Cholecalciferol (Vitamin D3) 25 MCG Tab PO SCH (08:11)
[2022-06-10] MEDS: FLUoxetine 20 MG Cap PO SCH (08:11)
[2022-06-10] MEDS: Formoterol/Mometasone 100-5 MCG 8.8 GM Inhaler IH SCH (08:35)
[2022-06-10 09:32] VITALS: BP 119/83; PULSE 78
== END 2022-06-10 09:30 | DRG 690 ==
LOC: JD.ED 14:49 → JD.MS 18:53
PROVIDERS: ADMIT Pediatrics; ATTEND Internal Medicine
DX: M24.7 Protrusio acetabuli (principal); M06.9 Rheumatoid arthritis, unspecified; N30.00 Acute cystitis without hematuria; S32.501A Unspecified fracture of right pubis, initial encounter for closed fracture; D84.9 Immunodeficiency, unspecified; J84.10 Pulmonary fibrosis, unspecified; F32.A Depression, unspecified; L89.159 Pressure ulcer of sacral region, unspecified stage; M05.771 Rheumatoid arthritis with rheumatoid factor of right ankle and foot without organ or systems involvement; Z20.822 Contact with and (suspected) exposure to COVID-19; M05.772 Rheumatoid arthritis with rheumatoid factor of left ankle and foot without organ or systems involvement; Z23 Encounter for immunization; M25.551 Pain in right hip; H54.7 Unspecified visual loss; I10 Essential (primary) hypertension; J44.9 Chronic obstructive pulmonary disease, unspecified; M19.90 Unspecified osteoarthritis, unspecified site; M81.0 Age-related osteoporosis without current pathological fracture; L93.0 Discoid lupus erythematosus; F32.9 Major depressive disorder, single episode, unspecified; Z59.6 Low income; L89.41 Pressure ulcer of contiguous site of back, buttock and hip, stage 1; Z85.41 Personal history of malignant neoplasm of cervix uteri; Z79.899 Other long term (current) drug therapy; Z74.01 Bed confinement status; Z74.2 Need for assistance at home and no other household member able to render care; Z88.1 Allergy status to other antibiotic agents; Z79.52 Long term (current) use of systemic steroids; Z87.01 Personal history of pneumonia (recurrent); Z87.440 Personal history of urinary (tract) infections; Z98.49 Cataract extraction status, unspecified eye; Z90.49 Acquired absence of other specified parts of digestive tract; D64.9 Anemia, unspecified; G25.81 Restless legs syndrome
CPT/HCPCS: 0241U; 36415; 72192; 73502; 80053; 81001; 82947; 83516; 83605; 83735; 83880; 84484; 85025; 85027; 85610; 85652; 85730; 86140; 86225; 86235; 86430; 87040; 87086; 90686; 93005; 94640; 94760; 94761; 96361; 96365; 96366; 97162; 99285; A9270-GY; C9113; J0696; J1650; J3475; J3490; J7030; J7512; U0002